=== PATIENT | female | born 1995 | race Caucasian/White ===

== ENCOUNTER 2020-06-16 12:54 | Outpatient (REF) | payer MEDICAID, SELFPAY ==
[2020-06-16 15:18] LABS: MANUAL DIFF FLAG NO
[2020-06-16 15:26] LABS: Basophils Percent Auto 0.3 % (0-2); Eosinophils Absolute Auto 0.2 X10*3/uL (0.0-0.4); Eosinophils Percent Auto 1.7 % (0-4); Hematocrit 42.1 % (37-47); Hemoglobin 14.4 g/dl (12.0-16.0); Imm Gran Abs Auto 0.08 X10*3/uL (0.00-0.03); Imm Gran Pct Auto 0.7 % (0.0-0.4); Lymphocytes Absolute Auto 2.4 X10*3/uL (1.2-4.9); Lymphocytes Percent Auto 21.8 % (20-40); Mean Corpuscular HGB Conc 34.2 g/dl (31.0-35.0); Mean Corpuscular Hemoglobin 30.2 pg (27.0-33.0); Mean Corpuscular Volume 88.3 fL (80-98); Mean Platelet Volume 10.7 fL (9.4-12.3); Monocytes Absolute Auto 0.6 X10*3/uL (0.1-1.2); Monocytes Percent Auto 5.5 % (2-11); Neutrophils Absolute Auto 7.6 X10*3/uL (2.0-8.3); Platelet Count 269 X10*3/uL (160-400); Red Blood Count 4.77 X10*6/uL (4.20-5.50); White Blood Count 10.9 X10*3/uL (4.8-10.8)
[2020-06-16 15:53] LABS: Amphetamine Screen Urine Not Detected (Not Detect); Barbiturates, Urine Not Detected (Not Detect); Benzodiazepines Screen Urine Not Detected (Not Detect); Cannabinoid Screen Urine Not Detected (Not Detect); Cocaine Screen Urine Not Detected (Not Detect); Opiate Screen Urine Not Detected (Not Detect); Phencyclidine Screen Urine Not Detected (Not Detect)
[2020-06-17 17:26] LABS: Rubella IgG Antibody 1.21 index
[2020-06-20 10:32] LABS: HBS Num1 2.43 mIU/mL (0-7.99); HBc Num1 0.04 S/CO (0.00-0.79); HBsAGNum1 0.19 S/CO (0.00-0.99); HIV AB/AG Nonreactive (Nonreactive); HIV Num 1 0.07 S/CO (0.00-0.99); Hepatitis B Core Antibody Nonreactive (Nonreactive); Hepatitis B Surface Antigen Negative (Negative); ~Hepatitis B Surface Antibody NONREACTIVE (Nonreactive)
[2020-06-20 10:37] LABS: ~HepC Num1 0.07 S/CO (0.00-0.79); ~Hepatitis C Antibody Nonreactive (Nonreactive)
[2020-06-22 05:15] LABS: Syphilis Screen Nonreactive (Nonreactive)
== END 2020-06-16 12:55 | disposition home or self-care (01) ==
LOC: HO.LABR 12:54
PROVIDERS: Visit Provider Advanced Practice Midwife
DX: Z34.90 Encounter for supervision of normal pregnancy, unspecified, unspecified trimester (principal)
CPT/HCPCS: 36415; 80307; 85025; 86704; 86706; 86762; 86780; 86787; 86803; 86850; 86886; 86900; 86901; 87086; 87340; 87389

== ENCOUNTER 2020-06-17 10:01 | Outpatient (REF) | payer MEDICAID, SELFPAY ==
[2020-06-17 14:07] LABS: Alanine Aminotransferase 13 U/L (0-31); Aspartate Amino Transferase 11 U/L (5-31)
[2020-06-17 14:18] LABS: Uric Acid 3.7 mg/dL (2.4-5.7)
[2020-06-17 14:38] LABS: Creatinine Urine 105.31 mg/dL; Protein/Creatinine Ratio, Ur 0.09 (<0.2); Total Protein Urine Random 9 mg/dL (<12)
[2020-06-17 16:40] LABS: CT PCR NOT DETECTED (Not Detect.); NG PCR NOT DETECTED (Not Detect.)
[2020-06-18 12:24] LABS: BV Int Neg Control Negative (Negative); BV Int Pos Control Positive (Positive)
== END 2020-06-17 10:02 | disposition home or self-care (01) ==
LOC: HO.LAB 10:01
PROVIDERS: PCP Internal Medicine Geriatric Medicine; Visit Provider Advanced Practice Midwife
DX: O26.892 Other specified pregnancy related conditions, second trimester (principal); R51.9 Headache, unspecified; O99.712 Diseases of the skin and subcutaneous tissue complicating pregnancy, second trimester; L85.3 Xerosis cutis; O99.891 Other specified diseases and conditions complicating pregnancy; N89.8 Other specified noninflammatory disorders of vagina; Z3A.18 18 weeks gestation of pregnancy; Z23 Encounter for immunization
CPT/HCPCS: 84156; 84450; 84460; 84550; 87480; 87491; 87510; 87591; 87660; 88142

== ENCOUNTER 2020-06-24 10:26 | Outpatient (REF) | payer MEDICAID, SELFPAY ==
--- NOTE | 2020-06-24 10:36 | US_ITS ---
EXAMINATION: OBSTETRICAL ULTRASOUND, Follow up HISTORY: 25-year-old at the 19.0 weeks of gestation Size date discrepancy COMPARISON: None TECHNIQUE: Real time transabdominal imaging with color and M-mode Doppler. PRESENTATION: Vertex PLACENTA LOCATION: Posterior without previa AMNIOTIC FLUID: Normal MEASUREMENTS: 1. Biparietal Diameter: 3.2 cm; 16.0 wks 2. Head Circumference: 11.37 cm; 15.6 wks 3. Abdominal Circumference: 9.4 cm; 15.4 wks 4. Femur Length: 1.9 cm; 15.4 wks 5. Heart Rate: 163 beats per minute WEIGHT: EFW: 128 grams (0 lbs 5 oz) -- N/A %. anatomic survey was not attempted due to early gestational age. GESTATIONAL AGE: 1. Established GA: 19.0 wks 2. GA from [facility]: 15.6 wks ESTIMATED DATE OF DELIVERY: 1. Established ADAM: 11/18/2020 2. ADAM from A: 12/10/2020 IMPRESSION: 1. A single active fetus 2. Size less than dates, the biometry is consistent with 15.6 weeks of gestation. Adjust her ADAM to 12/10/2020 based on today's examination. I discussed the discrepancy between her LMP based gestational age and today's biometry. I informed her that her best ADAM is 12/10/2020. An N IPT was offered and accepted. A survey has been scheduled in 3 weeks. Thank you very much for this referral.
== END 2020-06-24 10:27 | disposition home or self-care (01) ==
LOC: HO.US 10:26
PROVIDERS: Visit Provider Advanced Practice Midwife
DX: Z36.3 Encounter for antenatal screening for malformations (principal)
CPT/HCPCS: 76816

== ENCOUNTER 2020-07-29 14:44 | Outpatient (REF) | payer MEDICAID, SELFPAY ==
--- NOTE | 2020-07-29 | US_ITS ---
EXAMINATION: US OBSTETRICAL CLINICAL INFORMATION: 25-year-old at 20.6 weeks of gestation Suspected anomaly COMPARISON: 06/24/2020 TECHNIQUE: Real-time transabdominal ultrasound was performed using C1-5 megahertz transducer. FINDINGS: A single, active, fetus is seen in transverse presentation. The placenta is posterior without previa, and the amniotic fluid volume is wnl. MEASUREMENTS: 1. Biparietal Diameter: 4.96 cm; 21.1 wks 2. Head Circumference: 18.6 cm; 21.0 wks 3. Abdominal Circumference: 15.9 cm; 21.1 wks 4. Femur Length: 3.5 cm; 21.0 wks 5. Humerus Length: 3.22 cm; 20.6 wks 6. Tibia Length: 2.94 cm; 20.6 wks 7. Ulna Length: 3.1 cm; 22.0 wks 8. Lateral ventricle: 0.78 cm 9. Cerebellum: 2.1 cm; 20.6 wks 10. Cisterna Magna: 0.4 cm 11. Nuchal Fold: 3.1 mm 12. Heart Rate: 123 beats per minute Rt ovary: normal Lt ovary: normal Cervical length 4.2 cm on T/A. GESTATIONAL AGE: 1. Established GA: 20.6 wks 2. GA from [facility]: 21.1 wks ESTIMATED DATE OF DELIVERY: 1. Established ADAM: 12/10/2020 2. ADAM from [facility]: 12/08/2020 ANATOMY: The visualized anatomy includes but not limited to: 1. Cranium: Normal 2. Intracranial anatomy: cavum septum pellucidi, lateral ventricles, choroid plexus, cerebellum, posterior fossa, third and fourth ventricles. 3. face: orbits, lip/palate, profile, nasal bone 4. Heart: four-chamber view of the heart, ventricular septum, foramen ovale, pulmonary vein, left outflow tracts Suboptimal: RVOT, three-vessel view, 3 vessel trachea view, ductal and aortic arches 1. Diaphragm: Normal 2. Abdominal wall: Normal 3. Cord Insertion: Normal 4. Spine: Cervical, thoracic, lumbar, sacral. 5. Stomach: Normal size and shape 6. Right Kidney: Normal 7. Left Kidney: Normal 8. 3 vessel cord: Normal 9. Upper extremity: Open hands, fifth digit. 10. Lower extremity: Tibia, fibula, bilateral feet. 11. Bladder: Normal 12. Genitalia: Male, patient aware US/US OB /maternal detail IMPRESSION: 1. Single, living, intrauterine with appropriate biometry. 2. Suboptimal cardiac views due to position. No abnormalities were seen in visualized anatomy. 3. Normal cervix DISCUSSION: I reviewed today's ultrasound findings. We discussed the limitations of ultrasound in diagnosing aneuploidy and other congenital abnormalities. I reviewed the differences between screening test and diagnostic test. Amniocentesis was discussed and declined. She was informed that the baseline incidence of congenital abnormalities is approximately 3-5%. Not all these conditions are diagnosable in utero. RECOMMENDATIONS: 1. Follow-up anatomy in 2 weeks is been scheduled. Thank you for allowing me to participate in her care. Visiting time 25 minutes. Majority of this visit was spent reviewing and discussing her care.
== END 2020-07-29 14:45 | disposition home or self-care (01) ==
LOC: HO.US 14:44
PROVIDERS: PCP Family Medicine; Visit Provider Advanced Practice Midwife
DX: Z36.3 Encounter for antenatal screening for malformations (principal); Z3A.20 20 weeks gestation of pregnancy
CPT/HCPCS: 76811

== ENCOUNTER 2020-08-12 14:32 | Outpatient (REF) | payer MEDICAID, SELFPAY ==
--- NOTE | 2020-08-12 14:42 | US_ITS ---
EXAMINATION: OBSTETRICAL ULTRASOUND, Follow up HISTORY: 25-year-old at the 22.6 weeks of gestation Incomplete survey COMPARISON: 07/29/2020 TECHNIQUE: Real time transabdominal imaging with color and M-mode Doppler. PRESENTATION: Transverse PLACENTA LOCATION: Posterior without previa AMNIOTIC FLUID: Normal MEASUREMENTS: 1. Biparietal Diameter: 5.6 cm; 23.1 wks 2. Head Circumference: 21.3 cm; 23.3 wks 3. Abdominal Circumference: 18.9 cm; 23.5 wks 4. Femur Length: 4.0 cm; 22.6 wks 5. Heart Rate: 163 beats per minute WEIGHT: Estimated weight is 580 grams (1 lbs 4 oz) -- 64 %. Normal views of lateral cerebral ventricle, profile, nose/lips, 4ch view, LVOT, RVOT, three-vessel view, 3 vessel trachea view, aortic and ductal arches. GESTATIONAL AGE: 1. Established GA: 22.6 wks 2. GA from [facility]: 23.2 wks ESTIMATED DATE OF DELIVERY: 1. Established ADAM: 12/10/2020 2. ADAM from [facility]: 12/07/2020 US/US OB follow up IMPRESSION: 1. A single fetus with appropriate interval growth. 2. Previously limited views of the anatomy were seen as listed above. No abnormalities were noted in visualized anatomy. 3. This completes the survey. I reviewed the limitations of ultrasound in diagnosing aneuploidy and other congenital abnormalities. Amniocentesis was again reviewed and she declined. She was informed that the baseline instance of congenital abnormalities and defects in the general population is approximately 3-5%. Not all these conditions are diagnosable in utero. RECOMMENDATIONS: 1. f/u PRN Thank you very much for this referral.
== END 2020-08-12 14:33 | disposition home or self-care (01) ==
LOC: HO.US 14:32
PROVIDERS: Visit Provider Advanced Practice Midwife
DX: Z34.90 Encounter for supervision of normal pregnancy, unspecified, unspecified trimester (principal); Z36.3 Encounter for antenatal screening for malformations; Z3A.22 22 weeks gestation of pregnancy
CPT/HCPCS: 76816

== ENCOUNTER → 2020-09-07 11:12 | Outpatient (BNVA) | payer MEDICAID, SELFPAY | PROVIDERS: PCP Family Medicine; Visit Provider Advanced Practice Midwife | DX: Z76.89 Persons encountering health services in other specified circumstances (principal) ==

== ENCOUNTER → 2020-09-13 | Outpatient (BNVA) | payer MEDICAID, SELFPAY | PROVIDERS: PCP Family Medicine; Visit Provider Advanced Practice Midwife | DX: O21.9 Vomiting of pregnancy, unspecified (principal) | CPT/HCPCS: 81003; 99212 ==

== ENCOUNTER 2020-10-07 15:49 | Outpatient (REF) | payer MEDICAID, SELFPAY | END 2020-10-07 15:50 | disposition home or self-care (01) | LOC: HO.LAB 15:49 | PROVIDERS: Visit Provider Internal Medicine | DX: Z20.822 Contact with and (suspected) exposure to COVID-19 (principal) | CPT/HCPCS: 36415; C9803; U0003 ==

== ENCOUNTER → 2020-10-18 12:33 | Outpatient (BNVA) | payer MEDICAID, SELFPAY | PROVIDERS: Visit Provider Advanced Practice Midwife | DX: Z34.93 Encounter for supervision of normal pregnancy, unspecified, third trimester (principal) | CPT/HCPCS: 99212 ==

== ENCOUNTER 2020-12-01 13:50 | Outpatient (REF) | payer MEDICAID, SELFPAY ==
[2020-12-01 17:02] LABS: MANUAL DIFF FLAG NO
[2020-12-01 17:08] LABS: Basophils Percent Auto 0.2 % (0-2); Eosinophils Percent Auto 0.1 % (0-4); Hematocrit 44.7 % (37-47); Hemoglobin 14.9 g/dl (12.0-16.0); Imm Gran Abs Auto 0.13 X10*3/uL (0.00-0.03); Imm Gran Pct Auto 0.7 % (0.0-0.4); Lymphocytes Absolute Auto 1.7 X10*3/uL (1.2-4.9); Mean Corpuscular HGB Conc 33.3 g/dl (31.0-35.0); Mean Corpuscular Hemoglobin 29.6 pg (27.0-33.0); Mean Corpuscular Volume 88.9 fL (80-98); Mean Platelet Volume 12.6 fL (9.4-12.3); Monocytes Absolute Auto 0.5 X10*3/uL (0.1-1.2); Monocytes Percent Auto 2.8 % (2-11); Neutrophils Absolute Auto 16.8 X10*3/uL (2.0-8.3); Neutrophils Percent Auto 87.2 % (45-73); Platelet Count 241 X10*3/uL (160-400); Red Blood Count 5.03 X10*6/uL (4.20-5.50); Red Cell Distribution Width 14.8 % (11.0-16.0); White Blood Count 19.2 X10*3/uL (4.8-10.8)
[2020-12-01 17:19] LABS: Glucose 1 Hour 136 mg/dL
[2020-12-01 17:45] LABS: Thyroid Stimulating Hormone 1.39 uIU/mL (0.32-4.0)
[2020-12-02 04:38] LABS: Syphilis Screen Nonreactive (Nonreactive)
[2020-12-02 09:21] LABS: CT PCR NOT DETECTED (Not Detect.); NG PCR NOT DETECTED (Not Detect.)
== END 2020-12-01 13:51 | disposition home or self-care (01) ==
LOC: HO.LAB 13:50
PROVIDERS: Obstetrics & Gynecology; Visit Provider Advanced Practice Midwife
DX: O26.893 Other specified pregnancy related conditions, third trimester (principal); R10.9 Unspecified abdominal pain; Z3A.38 38 weeks gestation of pregnancy
CPT/HCPCS: 36415; 81003; 82951; 84443; 85025; 86780; 86850; 86900; 86901; 87081; 87147; 87491; 87591; 99212

== ENCOUNTER → 2021-03-20 14:47 | Outpatient (BNVA) | payer MEDICAID, SELFPAY | PROVIDERS: Visit Provider Advanced Practice Midwife ==

== ENCOUNTER 2021-10-16 09:04 | Outpatient (REF) | payer MEDICAID, SELFPAY ==
[2021-10-16 16:33] LABS: CT PCR NOT DETECTED (Not Detect.); NG PCR NOT DETECTED (Not Detect.)
== END 2021-10-16 09:05 | disposition home or self-care (01) ==
LOC: HO.LAB 09:04
PROVIDERS: Visit Provider Obstetrics & Gynecology
DX: Z30.09 Encounter for other general counseling and advice on contraception (principal)
CPT/HCPCS: 87491; 87591; 99212

== ENCOUNTER → 2021-11-27 12:50 | Outpatient (BNVA) | payer MEDICAID, SELFPAY | PROVIDERS: Visit Provider Advanced Practice Midwife | DX: Z30.430 Encounter for insertion of intrauterine contraceptive device (principal); Z30.09 Encounter for other general counseling and advice on contraception | CPT/HCPCS: 58300; 81025; 99212 ==

== ENCOUNTER 2022-02-14 05:42 | Emergency (ER) | payer MEDICAID, SELFPAY ==
--- NOTE | ~2022-02-14 | CT_ITS ---
EXAMINATION: CT ABDOMEN AND PELVIS WITHOUT CONTRAST CLINICAL INFORMATION: Right-sided flank pain COMPARISON: None TECHNIQUE: Multidetector volumetric imaging was performed from the superior aspect of the liver through the pubic symphysis. Sagittal and coronal reformatted images were obtained on the technologist's workstation. This CT examination was performed using dose optimization techniques as appropriate, variously including the following: *Automated exposure control *Adjustment of mA and/or kV according to patient size (this includes techniques or standardized protocols for targeted exams where dose is matched to indication/reason for exam; i.e. extremities or head) *Use of iterative reconstruction technique DLP: 669 mGy-cm FINDINGS: Visualized lung bases demonstrate mild dependent atelectasis. The liver demonstrates normal size, contour and attenuation. 2 mm calcification of the right hepatic lobe. The gallbladder is normal in appearance. The pancreas, spleen and adrenal glands are unremarkable. Symmetrically sized kidneys. There are several scattered bilateral 1 to 2 mm nonobstructing calculi within each kidney. There is no hydronephrosis of either kidney. There is a trace amount of mesenteric stranding abutting the lateral aspect of the right kidney and the inferior right hepatic lobe, a nonspecific finding. Normal caliber loops of small and large bowel. Mild colonic stool burden. Normal appendix. Small fat-containing umbilical hernia. Normal caliber abdominal aorta. The bladder is normal in appearance. Unremarkable CT appearance of the uterus. IUD in expected orientation. No gross free pelvic fluid. 3.5 cm left adnexal cystic lesion. No inguinal lymphadenopathy. No acute osseous abnormality. CT/CT abdomen pelvis wo con IMPRESSION: -Several tiny 1 to 2 mm renal calculi bilaterally. Medullary nephrocalcinosis suspected. There is no hydronephrosis of either kidney. -There is a trace amount of mesenteric stranding abutting the lateral aspect of the right kidney and the inferior right hepatic lobe. This is a nonspecific finding. Given history of right-sided flank pain, it is possible the patient recently passed a right-sided renal stone. Clinical correlation recommended. Follow-up imaging can be obtained as clinically indicated. Fleischner guidelines were followed.
[2022-02-14 06:48] LABS: Appearance Urine HAZY; Color Urine DARK YELLOW; Glucose Urine UA NEG (NEG); Leukocyte Esterase Urine 1+ (NEG); Nitrite Urine NEG (NEG); PH 6.5 (5.0-8.0); UPreg QC Valid YES; Urine Blood 3+ (NEG); Urine Ketones NEG (NEG); Urine Pregnancy NEGATIVE (NEGATIVE); Urine Protein TRACE MG/DL (NEG-TRACE)
[2022-02-14 06:49] LABS: Bacteria Urine 1+ /LPF; Mucus Urine 3+ /LPF; Squamous Epithelial Cell Urine 2+ /LPF
[2022-02-14 07:08] VITALS: BP 112/55; PULSE 114; RESP 18; TEMP 36.8; O2SAT 98; BMI 31.4
--- NOTE | 2022-02-14 07:14 | ED.ABDPAIN ---
HPI - Abdominal Pain General Chief Complaint: Abdominal Pain Time Seen by Provider: 02/14/22 06:42 Source: patient, family and nursing scheduler History of Present Illness HPI narrative: Thai-speaking patient with history obtained with nursing scheduler. Patient complains of right upper abdominal and right flank pain which started last night at about 22:00. Positive nausea vomiting and diarrhea. No prior history of similar issues. She states her urine is dark yellow but no other urinary symptoms. No history of kidney stones. No history of gallstones. She states the rest of her family is sick as well with vomiting and diarrhea. No alleviating or exacerbating factors Related Data Previous Rx's Medication Instructions Recorded ondansetron 4 mg disintegrating 4 mg PO Q8H PRN nausea and 02/14/22 tablet vomiting #10 tabs oxycodone-acetaminophen 5 mg-325 1 tab PO Q6H PRN pain #6 tabs 02/14/22 mg tablet (Percocet) sulfamethoxazole 800 1 tab PO BID #14 tabs 02/14/22 mg-trimethoprim 160 mg tablet (Bactrim DS) Allergies Allergy/AdvReac Type Severity Reaction Status Date / Time No Known Allergies Allergy Verified 11/27/21 16:14 [No Known Allergies*] Review of Systems Comments: subjective fevers Comments: no sore throat Comments: no chest pain Comments: no cough or shortness of breath Comments: as described above Comments: as described above Comments: right flank pain Comments: no rash Comments: no weakness PMFSH Past Medical History Surgical History No history of previous surgery Family History Family History Mother No problems noted. Father History of heart attack Paternal Grandmother Hx of diabetes mellitus Maternal Grandmother No problems noted. Maternal Grandfather No problems noted. Social History Social History Household Members: Children Alcohol intake: never Substance Use Type: Marijuana Advance Directives: No Advance Directives Information Provided: No Current occupational exposures/hazards: No Gender identity: Female Physical Exam ED Vital Signs: Vital Signs - 24 hr 02/14/22 07:08 02/14/22 07:46 Temperature 98.3 F Pulse Rate 114 H 0 L Respiratory Rate 18 0 L Blood Pressure 112/55 L 0/0 L Pulse Oximetry 98 0 L Oxygen Delivery Method Room Air Room Air BMI result Body Mass Index 31.4 Const Other: awake alert no acute distress Resp Other: clear and equal bilaterally without wheezes rales or rhonchi Cardio Other: regular rate and rhythm without murmurs rubs or gallops GI Other: soft. Tender mildly right upper quadrant without guarding or rebound. Positive right flank tenderness to percussion. Normoactive bowel sounds. Nondistended Skin Other: warm pink and dry without rash Neuro Other: awake alert oriented Course Course Course Narrative: abdominal pain with nausea vomiting diarrhea Gastroenteritis Viral syndrome COVID-19 Kidney stone Gallstone dehydration IV fluids IV Zofran IV Toradol CT scan HCG negative CT scan shows some mild perinephric stranding without evidence of hydronephrosis or obstruction or passing kidney stone. Urinalysis shows some white cells. Her white count is elevated. Given all of these findings, will treat with a course of antibiotics. Final diagnosis pyelonephritis, mild MDM - Abdominal Pain Lab Data Result diagrams: 02/14/22 07:29 02/14/22 07:29 Labs: Lab Results 02/14/22 02/14/22 02/14/22 Range/Units 05:55 05:55 07:29 WBC 17.3 H (4.8-10.8) X10*3/uL RBC 4.77 (4.20-5.50) X10*6/uL Hgb 14.1 (12.0-16.0) g/dl Hct 42.3 (37.0-47.0) % MCV 88.7 (80.0-98.0) fL MCH 29.6 (27.0-33.0) pg MCHC 33.3 (31.0-35.0) g/dl RDW 12.9 (11.0-16.0) % Plt Count 237 (160-400) X10*3/uL MPV 10.5 (9.4-12.3) fL Immature Gran % (Auto) 0.6 H (0.0-0.4) % Neut % (Auto) 83.0 H (45-73) % Lymph % (Auto) 8.0 L (20-40) % [place] % (Auto) 8.1 (2-11) % Eos % (Auto) 0.1 (0-4) % Baso % (Auto) 0.2 (0-2) % Lymph # (Auto) 1.4 (1.2-4.9) X10*3/uL [place] # (Auto) 1.4 H (0.1-1.2) X10*3/uL Eos # (Auto) 0.0 (0.0-0.4) X10*3/uL Baso # (Auto) 0.0 (0.0-0.2) X10*3/uL Abs Immat Gran (auto) 0.11 H (0.00-0.03) X10*3/uL Absolute Neuts (auto) 14.4 H (2.0-8.3) x10*3/uL Absolute Nucleated RBC 0.000 (0.0-0.012) X10*3/uL Nucleated RBC % (auto) 0.0 (0.0-0.2) /100WBC Sodium (135-145) mmol/L Potassium (3.3-5.1) mmol/L Chloride (96-108) mmol/L Carbon Dioxide (22-29) mmol/L Anion Gap (12-20) BUN (9-16) mg/dL Creatinine (0.5-1.4) mg/dL Estim Creat Clear Calc Estimated GFR Random Glucose (60-115) mg/dL Calcium (8.4-10.2) mg/dL Total Bilirubin (0.0-1.0) mg/dL AST (5-31) U/L ALT (0-31) U/L Alkaline Phosphatase (39-117) U/L Total Protein (6.5-8.0) g/dL Albumin (3.5-5.0) g/dL Lipase (8-78) U/L Urine Color DARK YELLOW Urine Appearance HAZY Urine pH 6.5 (5.0-8.0) Ur Specific [place] 1.020 (1.005-1.025) Urine Protein TRACE (NEG-TRACE) MG/DL Urine Glucose (UA) NEG (NEG) MG/DL Urine Ketones NEG (NEG) MG/DL Urine Blood 3+ H (NEG) Urine Nitrite NEG (NEG) Ur Leukocyte Esterase 1+ H (NEG) Urine RBC 10-14 H (0) /HPF Urine WBC 5-9 H (0-4) /HPF Ur Squamous Epith Cells 2+ /LPF Urine Bacteria 1+ /LPF Urine Mucus 3+ /LPF Urine Test NEGATIVE (NEGATIVE) 02/14/22 Range/Units 07:29 WBC (4.8-10.8) X10*3/uL RBC (4.20-5.50) X10*6/uL Hgb (12.0-16.0) g/dl Hct (37.0-47.0) % MCV (80.0-98.0) fL MCH (27.0-33.0) pg MCHC (31.0-35.0) g/dl RDW (11.0-16.0) % Plt Count (160-400) X10*3/uL MPV (9.4-12.3) fL Immature Gran % (Auto) (0.0-0.4) % Neut % (Auto) (45-73) % Lymph % (Auto) (20-40) % [place] % (Auto) (2-11) % Eos % (Auto) (0-4) % Baso % (Auto) (0-2) % Lymph # (Auto) (1.2-4.9) X10*3/uL [place] # (Auto) (0.1-1.2) X10*3/uL Eos # (Auto) (0.0-0.4) X10*3/uL Baso # (Auto) (0.0-0.2) X10*3/uL Abs Immat Gran (auto) (0.00-0.03) X10*3/uL Absolute Neuts (auto) (2.0-8.3) x10*3/uL Absolute Nucleated RBC (0.0-0.012) X10*3/uL Nucleated RBC % (auto) (0.0-0.2) /100WBC Sodium 136 (135-145) mmol/L Potassium 4.0 (3.3-5.1) mmol/L Chloride 103 (96-108) mmol/L Carbon Dioxide 25 (22-29) mmol/L Anion Gap 12 (12-20) BUN 6 L (9-16) mg/dL Creatinine 0.65 (0.5-1.4) mg/dL Estim Creat Clear Calc 144.2 Estimated GFR > 60 Random Glucose 114 (60-115) mg/dL Calcium 9.2 (8.4-10.2) mg/dL Total Bilirubin 1.0 (0.0-1.0) mg/dL AST 22 D (5-31) U/L ALT 26 (0-31) U/L Alkaline Phosphatase 62 (39-117) U/L Total Protein 7.0 (6.5-8.0) g/dL Albumin 4.4 (3.5-5.0) g/dL Lipase 15 (8-78) U/L Urine Color Urine Appearance Urine pH (5.0-8.0) Ur Specific [place] (1.005-1.025) Urine Protein (NEG-TRACE) MG/DL Urine Glucose (UA) (NEG) MG/DL Urine Ketones (NEG) MG/DL Urine Blood (NEG) Urine Nitrite (NEG) Ur Leukocyte Esterase (NEG) Urine RBC (0) /HPF Urine WBC (0-4) /HPF Ur Squamous Epith Cells /LPF Urine Bacteria /LPF Urine Mucus /LPF Urine Test (NEGATIVE) Discharge Plan Discharge Clinical Impression: Pyelonephritis Patient Disposition: Home, Self-Care Instructions: Kidney Infection (ED) Prescriptions: New sulfamethoxazole-trimethoprim [Bactrim DS] 800-160 mg tablet 1 tab PO BID Qty: 14 0RF ondansetron 4 mg tablet,disintegrating 4 mg PO Q8H PRN (Reason: nausea and vomiting) Qty: 10 0RF oxycodone-acetaminophen [Percocet] 5-325 mg tablet 1 tab PO Q6H PRN (Reason: pain) Qty: 6 0RF Rx Instructions: Partial Fill upon patient request. Stand Alone Forms: Work/School Release
[2022-02-14] MEDS: 0.9 % Sodium Chloride 1,000 ML 999 ML IV (07:30)
[2022-02-14 07:35] LABS: MANUAL DIFF FLAG NO
[2022-02-14] MEDS: Ketorolac Tromethamine 15 MG/ML VIAL 30 MG IVPUSH (07:37)
[2022-02-14] MEDS: ondansetron HCL 4 MG/2 ML VIAL IVPUSH (07:37)
[2022-02-14 07:38] LABS: Basophils Percent Auto 0.2 % (0-2); Eosinophils Percent Auto 0.1 % (0-4); Hematocrit 42.3 % (37.0-47.0); Hemoglobin 14.1 g/dl (12.0-16.0); Imm Gran Abs Auto 0.11 X10*3/uL (0.00-0.03); Imm Gran Pct Auto 0.6 % (0.0-0.4); Lymphocytes Absolute Auto 1.4 X10*3/uL (1.2-4.9); Mean Corpuscular HGB Conc 33.3 g/dl (31.0-35.0); Mean Corpuscular Hemoglobin 29.6 pg (27.0-33.0); Mean Corpuscular Volume 88.7 fL (80.0-98.0); Mean Platelet Volume 10.5 fL (9.4-12.3); Monocytes Absolute Auto 1.4 X10*3/uL (0.1-1.2); Monocytes Percent Auto 8.1 % (2-11); Neutrophils Absolute Auto 14.4 x10*3/uL (2.0-8.3); Platelet Count 237 X10*3/uL (160-400); Red Blood Count 4.77 X10*6/uL (4.20-5.50); Red Cell Distribution Width 12.9 % (11.0-16.0); White Blood Count 17.3 X10*3/uL (4.8-10.8)
[2022-02-14 07:46] VITALS: BP 0/0; PULSE 0; RESP 0; O2SAT 0
[2022-02-14 08:06] LABS: Alanine Aminotransferase 26 U/L (0-31); Albumin Level 4.4 g/dL (3.5-5.0); Alkaline Phosphatase 62 U/L (39-117); Anion Gap 12 (12-20); Aspartate Amino Transferase 22 U/L (5-31); Blood Urea Nitrogen 6 mg/dL (9-16); Calcium 9.2 mg/dL (8.4-10.2); Carbon Dioxide 25 mmol/L (22-29); Chloride 103 mmol/L (96-108); Creatinine Clr Calc Pharmacy 144.2; Estimated Glomerular Filt Rate > 60; Glucose Random 114 mg/dL (60-115); Lipase 15 U/L (8-78); Sodium 136 mmol/L (135-145)
[2022-02-14 09:44] LABS: Influenza A PCR NEGATIVE (Negative); Influenza B PCR NEGATIVE (Negative); Resp Syncy Virus RNA Qual PCR NEGATIVE (Negative); SARS COV2 PCR INHOUSE NEGATIVE (Negative)
== END 2022-02-14 09:26 | disposition home or self-care (01) ==
PROVIDERS: Emergency Provider Emergency Medicine
DX: N20.9 Urinary calculus, unspecified (principal); Z20.822 Contact with and (suspected) exposure to COVID-19; R10.11 Right upper quadrant pain; R11.2 Nausea with vomiting, unspecified
CPT/HCPCS: 0241U; 36415; 74176; 80053; 81001; 81025; 83690; 85025; 96361; 96374; 96375; 99283; 99284; J1885; J2405

== ENCOUNTER → 2022-12-20 13:42 | Outpatient (BNVA) | payer MEDICAID, SELFPAY | PROVIDERS: Visit Provider Advanced Practice Midwife | DX: Z97.5 Presence of (intrauterine) contraceptive device (principal) | CPT/HCPCS: 99212 ==

== ENCOUNTER 2023-02-27 16:25 | Emergency (ER) | payer MEDICAID, SELFPAY ==
[2023-02-27 16:39] VITALS: BP 119/70; PULSE 104; RESP 18; TEMP 36.6; O2SAT 97; BMI 33.8
--- NOTE | 2023-02-27 16:39 | ED_ITS ---
HPI - Abdominal Pain General Chief Complaint: General Medical Stated Complaint: abd pain, vomiting, nausea Time Seen by Provider: 02/27/23 19:49 Source: patient Mode of arrival: ambulatory Limitations: no limitations and language barrier History of Present Illness HPI narrative: 28 yo female with history of IUD placed 2 years presenting to the ER with upper abdominal pain. She states that she has been experiencing intermittent upper abdominal pain since this morning. She reports N/V, diarrhea, and vaginal bleed ing without blood clots. She states that her LMP was the 02/22-02/25, and noticed spotting when she wiped this morning with some vaginal discharge. She denies pelvic pain. She reports alcohol use this weekend for a social gathering. MD elicited complaint: abdominal pain Pertinent past history: none Onset (ago): hour(s) Pain Consistency: intermittent Location: epigastric, LUQ and RUQ Severity: moderate Quality: stabbing and sharp Radiation: none Migration to: no migration Exacerbating factors: eating Relieving factors: nothing Associated symptoms: nausea, vomiting and diarrhea Related Data Date of Last Menstrual Period: 02/22/23 Patient : No Home Medications Medication Instructions Recorded Confirmed levonorgestrel 21 mcg/24 hours (8 intrauterine 12/20/22 12/20/22 yrs) 52 mg intrauterine device (Mirena) Previous Rx's Medication Instructions Recorded ondansetron 4 mg disintegrating 4 mg PO Q8H PRN nausea and 02/27/23 tablet vomiting #7 tabs pantoprazole 40 mg tablet,delayed 40 mg PO DAILY #14 tabs 02/27/23 release (Protonix) Allergies Allergy/AdvReac Type Severity Reaction Status Date / Time No Known Allergies Allergy Verified 02/27/23 16:44 [No Known Allergies*] Review of Systems Review of Systems Yes all other systems are reviewed and are negative [facility] Past Medical History Surgical History No history of previous surgery Date of Last Menstrual Period: 02/22/23 Family History Family History Mother No problems noted. Father History of heart attack Paternal Grandmother Hx of diabetes mellitus Maternal Grandmother No problems noted. Maternal Grandfather No problems noted. Social History Social History (Reviewed 12/20/22 @ 13:51 by eMly Dyer [facility]) Household Members: Children Alcohol intake: unknown Use of substances other than those prescribed or required for medical reasons: Unknown Substance Use Type: Marijuana Advance Directives: No Advance Directives Information Provided: No Patient : No Current occupational exposures/hazards: No Gender identity: Female Physical Exam ED Vital Signs: Vital Signs - 24 hr 02/27/23 16:39 02/27/23 20:11 Temperature 97.8 F Pulse Rate 104 H 85 Respiratory Rate 18 16 Blood Pressure 119/70 120/81 Pulse Oximetry 97 98 Oxygen Delivery Method Room Air Room Air BMI result Body Mass Index 33.8 Appearance: Alert. Oriented X3. No acute distress. Head: normocephalic, atraumatic. Eyes: Pupils equal, round and reactive to light. ENT: Pharynx normal. No tonsillar swelling or exudate. Neck: Normal inspection. Neck supple. CVS: Normal heart rate and rhythm. Pulses normal. Respiratory: No respiratory distress. Breath sounds normal. Abdomen: Soft and tender to palpation in the RUQ, eipigastic area, and LUQ.+BS x4 negative Wetzel sign. Nontender in the LLQ and RLQ. Non distended. pelvic deferred Skin: Skin warm and dry. Normal skin color. Normal skin turgor. No rashes. Extremities: No lower extremity edema. No joint swelling. Neuro/psych: Oriented X 3. No motor deficit. No sensory deficit. CN II-XII intact. Normal speech and cognition. Course Course Course Narrative: RME: 28yo F w/PMHx currently has IUD c/o intermittent upper abdominal pain, vaginal bleeding w/ clots and emesis x this AM Labs, UA ordered Full HPI, ROS and PE to be performed by primary ED provider. Medical Decision Making Medical Decision Making MDM Narrative: 28 yo female with history of IUD placed 2 years presenting to the ER with upper abdominal pain. Physical exam she was tender to palpation in the RUQ, LUQ and epigastric area. Negative Wetzel's sign. Normal lipase and LFTs, negative Upreg. Diagnosis most likely gastritis vs gastroenteritis given diarrhea, trailed Lidoc arine, Ondanetron, and in which she reports improvement of her epigastric pain. Reports dizziness after medication administration and ongoing headache. tylenol given and she was tolerating PO. comfortable with discharge home with PPI, PRN zofran and dietary modifications. staff therapist used to discuss results and plan. stable for d/c home. Differential Diagnosis Differential Diagnoses: The differential diagnosis associated with the presentation includes gastroenteritis, gastritis, acute pancreatitis, acute cholecystitis, IUD displacement, ectopic pregancy, DUB Lab Data MDM Lab Attestation statement: I reviewed the patient's lab results. Labs showed mild leukocytosis with left shift which is at baseline from previous labs. likely reactive due to vomiting. All other labs within normal. 02/27/23 17:12 02/27/23 17:11 Labs: Lab Results 02/27/23 02/27/23 02/27/23 Range/Units 17:11 17:11 17:12 WBC 14.9 H (4.8-10.8) X10*3/uL RBC 4.95 (4.20-5.50) X10*6/uL Hgb 14.5 (12.0-16.0) g/dl Hct 43.0 (37.0-47.0) % MCV 86.9 (80.0-98.0) fL MCH 29.3 (27.0-33.0) pg MCHC 33.7 (31.0-35.0) g/dl RDW 13.0 (11.0-16.0) % Plt Count 305 D (160-400) X10*3/uL MPV 10.5 (9.4-12.3) fL Immature Gran % (Auto) 0.4 (0.0-0.4) % Neut % (Auto) 88.2 H (45-73) % Lymph % (Auto) 7.2 L (20-40) % Douglas % (Auto) 3.4 (2-11) % Eos % (Auto) 0.5 (0-4) % Baso % (Auto) 0.3 (0-2) % Lymph # (Auto) 1.1 L (1.2-4.9) X10*3/uL Douglas # (Auto) 0.5 (0.1-1.2) X10*3/uL Eos # (Auto) 0.1 (0.0-0.4) X10*3/uL Baso # (Auto) 0.0 (0.0-0.2) X10*3/uL Abs Immat Gran (auto) 0.06 H (0.00-0.03) X10*3/uL Absolute Neuts (auto) 13.1 H (2.0-8.3) x10*3/uL Absolute Nucleated RBC 0.000 (0.0-0.012) X10*3/uL Nucleated RBC % (auto) 0.0 (0.0-0.2) /100WBC PT (10.0-13.1) SEC INR (0.9-1.1) Sodium 137 (135-145) mmol/L Potassium 3.7 (3.3-5.1) mmol/L Chloride 107 (96-108) mmol/L Carbon Dioxide 24 (22-29) mmol/L Anion Gap 10 L (12-20) BUN 8 L (9-16) mg/dL Creatinine 0.62 (0.5-1.4) mg/dL Estim Creat Clear Calc 154.1 Estimated GFR > 60 Random Glucose 103 (60-115) mg/dL Calcium 10.3 H D (8.4-10.2) mg/dL Total Bilirubin 0.9 (0.0-1.0) mg/dL Direct Bilirubin 0.3 (0.0-0.5) mg/dL AST 15 (5-31) U/L ALT 13 (0-31) U/L Alkaline Phosphatase 59 (39-117) U/L Total Protein 7.6 (6.5-8.0) g/dL Albumin 4.5 (3.5-5.0) g/dL Lipase 15 (8-78) U/L Beta HCG, Quant mIU/mL Urine Color Yellow Urine Appearance Clear Urine pH 7.0 (5.0-9.0) Ur Specific [place] 1.025 (1.005-1.025) Urine Protein Negative (Neg-Trace) mg/dL Urine Glucose (UA) Negative (Negative) mg/dL Urine Ketones Negative (Negative) mg/dL Urine Blood Trace H (Negative) Urine Nitrite Negative (Negative) Ur Leukocyte Esterase Trace H (Negative) Urine RBC 0-2 (0-2) /HPF Urine WBC 0-5 (0-5) /HPF Ur Squamous Epith Cells 3-5 (0-2) /HPF Urine Bacteria Trace (None Seen) Hyaline Casts 0-2 (0-2) /LPF 06/21/23 06/21/23 Range/Units 17:12 17:12 WBC (4.8-10.8) X10*3/uL RBC (4.20-5.50) X10*6/uL Hgb (12.0-16.0) g/dl Hct (37.0-47.0) % MCV (80.0-98.0) fL MCH (27.0-33.0) pg MCHC (31.0-35.0) g/dl RDW (11.0-16.0) % Plt Count (160-400) X10*3/uL MPV (9.4-12.3) fL Immature Gran % (Auto) (0.0-0.4) % Neut % (Auto) (45-73) % Lymph % (Auto) (20-40) % Douglas % (Auto) (2-11) % Eos % (Auto) (0-4) % Baso % (Auto) (0-2) % Lymph # (Auto) (1.2-4.9) X10*3/uL Douglas # (Auto) (0.1-1.2) X10*3/uL Eos # (Auto) (0.0-0.4) X10*3/uL Baso # (Auto) (0.0-0.2) X10*3/uL Abs Immat Gran (auto) (0.00-0.03) X10*3/uL Absolute Neuts (auto) (2.0-8.3) x10*3/uL Absolute Nucleated RBC (0.0-0.012) X10*3/uL Nucleated RBC % (auto) (0.0-0.2) /100WBC PT 11.4 (10.0-13.1) SEC INR 1.0 (0.9-1.1) Sodium (135-145) mmol/L Potassium (3.3-5.1) mmol/L Chloride (96-108) mmol/L Carbon Dioxide (22-29) mmol/L Anion Gap (12-20) BUN (9-16) mg/dL Creatinine (0.5-1.4) mg/dL Estim Creat Clear Calc Estimated GFR Random Glucose (60-115) mg/dL Calcium (8.4-10.2) mg/dL Total Bilirubin (0.0-1.0) mg/dL Direct Bilirubin (0.0-0.5) mg/dL AST (5-31) U/L ALT (0-31) U/L Alkaline Phosphatase (39-117) U/L Total Protein (6.5-8.0) g/dL Albumin (3.5-5.0) g/dL Lipase (8-78) U/L Beta HCG, Quant < 2 mIU/mL Urine Color Urine Appearance Urine pH (5.0-9.0) Ur Specific [place] (1.005-1.025) Urine Protein (Neg-Trace) mg/dL Urine Glucose (UA) (Negative) mg/dL Urine Ketones (Negative) mg/dL Urine Blood (Negative) Urine Nitrite (Negative) Ur Leukocyte Esterase (Negative) Urine RBC (0-2) /HPF Urine WBC (0-5) /HPF Ur Squamous Epith Cells (0-2) /HPF Urine Bacteria (None Seen) Hyaline Casts (0-2) /LPF Independent Historian Clinical information obtained from an independent historian. History obtained from or confirmed by: Parent External Record Review External record reviewed: Office record Tests considered The following testing was considered but not selected: CT scan vs RUQ U/S considered Prescription Management I considered prescription management with: Pain Medication and Other (antiemetics, PPI) Core Measures AMI core measures followed: No Medications Administered Discontinued Medications Generic Name Dose Route Start Last Admin Trade Name Devanteq PRN Reason Stop Dose Admin Acetaminophen 975 mg 02/27/23 21:35 02/27/23 21:44 Acetaminophen 325 Mg Tablet PO 02/27/23 21:36 975 mg ONCE ONE Administration Al Hydroxide/Mg Hydroxide 30 ml 02/27/23 20:04 02/27/23 20:16 Magnesium Hydrox/Alum Hydrox 30 Ml Oral.Susp PO 02/27/23 20:05 30 ml ONCE ONE Administration Belladonna Alkaloids/Phenobarbital 10 ml 02/27/23 20:04 02/27/23 20:17 Phenobarb/Hyoscy/Atropine/Scop 10 Ml Elixir PO 02/27/23 20:05 10 ml ONCE ONE Administration Lidocaine HCl 15 ml 02/27/23 20:04 02/27/23 20:16 Lidocaine Hcl Viscous 2 % 15 Ml Solution MUCOUS MEM 02/27/23 20:05 15 ml ONCE ONE Administration Ondansetron HCl 4 mg 02/27/23 20:04 02/27/23 20:15 Ondansetron Odt 4 Mg Tab.Juan BAIU 02/27/23 20:05 4 mg ONCE ONE Administration Critical Care Time Critical Care Time Critical Care Time: No Discharge Plan Discharge Clinical Impression: Gastroenteritis, Abnormal vaginal bleeding Patient Disposition: Home, Self-Care Instructions: Gastroenteritis (DC) Additional Instructions: You lab workup today was unremarkable. Your urine test was negative for infection and . You most likely have a viral GI bug also known as gastroenteritis. Treatment is supportive care, symptoms usually resolve on their own in 48-72 hours. Recommend rest and plenty of oral hydration. Stick to a bland diet like soup and toast while you are not feeling well. Take the prescribed medication as needed for nausea and the other medication to help dec Recommend over the counter Pepto Bismol or Imodium for upset stomach and diarrhea. Follow up with your doctor as needed. Follow up with your DELIVERY AGENT for evaluation of your abnormal vaginal bleeding. If you develop new or worsening symptoms call 911 or come back to the ER for further evaluation. Tu an?lisis de laboratorio de hoy no tuvo nada especial. Luo an?lisis de orina yuniel negativo para infecci?n y embarazo. Lo m?s probable es que tenga un bicho GI viral, tambi?n conocido enrique gastroenteritis. El tratamiento es atenci?n de apoyo, los s?ntomas generalmente se resuelven por s? solos en 48 a 72 horas. Recomendable reposo y mariano hidrataci?n oral. Siga wong dieta blanda enrique sopa y tostadas mientras no se sienta chris. [place] el medicamento recetado seg?n sea necesario para las n?useas y el otro medicamento para ayudar a disminuir Recomiende Pepto Bismol o Imodium de venta derick para el malestar estomacal y la diarrea. Giovani un seguimiento con luo m?dico seg?n sea necesario. Giovani un seguimiento con luo obstetra/ginec?logo para evaluar luo sangrado vaginal anormal. Si desarrolla s?ntomas nuevos o que empeoran, llame al 911 o regrese a la mayda de emergencias para wong evaluaci?n adicional. Prescriptions: New pantoprazole [Protonix] 40 mg tablet,delayed release (DR/EC) 40 mg PO DAILY Qty: 14 0RF ondansetron 4 mg tablet,disintegrating 4 mg PO Q8H PRN (Reason: nausea and vomiting) Qty: 7 0RF No Action Mirena 21 mcg/24 hours (8 yrs) 52 mg intrauterine device intrauterine Referrals: [facility] [place] [facility] [Primary Care Provider] - Interventions: ED Discharge Assessment Last Done: 02/27/23 22:25 Discharge Date/Time: 02/27/23 22:25 Print Language: Stateless
[2023-02-27 17:19] LABS: Basophils Percent Auto 0.3 % (0-2); Eosinophils Absolute Auto 0.1 X10*3/uL (0.0-0.4); Eosinophils Percent Auto 0.5 % (0-4); Hemoglobin 14.5 g/dl (12.0-16.0); Imm Gran Abs Auto 0.06 X10*3/uL (0.00-0.03); Imm Gran Pct Auto 0.4 % (0.0-0.4); Lymphocytes Absolute Auto 1.1 X10*3/uL (1.2-4.9); Lymphocytes Percent Auto 7.2 % (20-40); MANUAL DIFF FLAG NO; Mean Corpuscular HGB Conc 33.7 g/dl (31.0-35.0); Mean Corpuscular Hemoglobin 29.3 pg (27.0-33.0); Mean Corpuscular Volume 86.9 fL (80.0-98.0); Mean Platelet Volume 10.5 fL (9.4-12.3); Monocytes Absolute Auto 0.5 X10*3/uL (0.1-1.2); Monocytes Percent Auto 3.4 % (2-11); Neutrophils Absolute Auto 13.1 x10*3/uL (2.0-8.3); Neutrophils Percent Auto 88.2 % (45-73); Platelet Count 305 X10*3/uL (160-400); Red Blood Count 4.95 X10*6/uL (4.20-5.50); White Blood Count 14.9 X10*3/uL (4.8-10.8)
[2023-02-27 17:21] LABS: Appearance Urine Clear; Color Urine Yellow; Glucose Urine UA Negative (Negative); Leukocyte Esterase Urine Trace (Negative); Nitrite Urine Negative (Negative); Specific Gravity - Urine 1.025 (1.005-1.025); UMIC TRIGGER UACC YES; Urine Blood Trace (Negative); Urine Ketones Negative (Negative); Urine Protein Negative (Neg-Trace)
[2023-02-27 17:25] LABS: Prothrombin Time 11.4 SEC (10.0-13.1)
[2023-02-27 17:25] LABS: Bacteria Urine Trace (None Seen); Hyaline Casts Urine 0-2 /LPF (0-2); RBC Urine 0-2 /HPF (0-2); WBC Urine 0-5 /HPF (0-5)
[2023-02-27 17:34] LABS: Alanine Aminotransferase 13 U/L (0-31); Albumin Level 4.5 g/dL (3.5-5.0); Alkaline Phosphatase 59 U/L (39-117); Anion Gap 10 (12-20); Aspartate Amino Transferase 15 U/L (5-31); Bilirubin Direct 0.3 mg/dL (0.0-0.5); Bilirubin Total 0.9 mg/dL (0.0-1.0); Blood Urea Nitrogen 8 mg/dL (9-16); Calcium 10.3 mg/dL (8.4-10.2); Carbon Dioxide 24 mmol/L (22-29); Chloride 107 mmol/L (96-108); Creatinine Clr Calc Pharmacy 154.1; Estimated Glomerular Filt Rate > 60; Glucose Random 103 mg/dL (60-115); Lipase 15 U/L (8-78); Potassium 3.7 mmol/L (3.3-5.1); Sodium 137 mmol/L (135-145); Total Protein 7.6 g/dL (6.5-8.0)
[2023-02-27 17:49] LABS: HCG Quantitative < 2 mIU/mL
[2023-02-27 20:11] VITALS: BP 120/81; PULSE 85; RESP 16; O2SAT 98
[2023-02-27] MEDS: Ondansetron ODT 4 MG TAB.RAPDIS TRANSLINGU (20:15)
[2023-02-27] MEDS: Magnesium Hydrox/Alum Hydrox 30 ML ORAL.SUSP PO (20:16)
[2023-02-27] MEDS: Lidocaine HCl Viscous 2 % 15 ML SOLUTION MUCOUS MEM (20:16)
[2023-02-27] MEDS: PHENobarb/Hyoscy/Atropine/Scop 10 ML ELIXIR PO (20:17)
[2023-02-27] MEDS: Acetaminophen 325 MG TABLET 975 MG PO (21:44)
== END 2023-02-27 22:25 | disposition home or self-care (01) ==
PROVIDERS: Physician Assistant; Emergency Provider Emergency Medicine Emergency Medical Services
DX: K52.9 Noninfective gastroenteritis and colitis, unspecified (principal); N93.9 Abnormal uterine and vaginal bleeding, unspecified
CPT/HCPCS: 36415; 80048; 80076; 81001; 83690; 84702; 85025; 85610; 99283; 99284

== ENCOUNTER 2024-07-10 15:23 | Outpatient (REF) | payer MEDICAID, SELFPAY ==
[2024-07-10 16:36] LABS: MANUAL DIFF FLAG NO
[2024-07-10 16:49] LABS: Basophils Absolute Auto 0.1 X10*3/uL (0.0-0.2); Basophils Percent Auto 0.6 % (0-2); Eosinophils Absolute Auto 0.1 X10*3/uL (0.0-0.4); Eosinophils Percent Auto 1.5 % (0-4); Hematocrit 39.8 % (37.0-47.0); Imm Gran Abs Auto 0.03 X10*3/uL (0.00-0.03); Imm Gran Pct Auto 0.4 % (0.0-0.4); Lymphocytes Absolute Auto 2.6 X10*3/uL (1.2-4.9); Lymphocytes Percent Auto 33.4 % (20-40); Mean Corpuscular HGB Conc 32.7 g/dl (31.0-35.0); Mean Corpuscular Hemoglobin 28.8 pg (27.0-33.0); Mean Corpuscular Volume 88.1 fL (80.0-98.0); Monocytes Absolute Auto 0.4 X10*3/uL (0.1-1.2); Monocytes Percent Auto 5.5 % (2-11); Neutrophils Absolute Auto 4.6 x10*3/uL (2.0-8.3); Neutrophils Percent Auto 58.6 % (45-73); Platelet Count 340 X10*3/uL (160-400); Red Blood Count 4.52 X10*6/uL (4.20-5.50); Red Cell Distribution Width 14.5 % (11.0-16.0); White Blood Count 7.9 X10*3/uL (4.8-10.8)
[2024-07-10 16:54] LABS: Estimated Average Glucose 100 mg/dL; Hemoglobin A1C 110.9583 umol/L; Hemoglobin A1c % 5.1 % (<6.0); Total Hemoglobin (HGBA1C) 3497.7547 umol/L
[2024-07-10 19:07] LABS: Alanine Aminotransferase 18 U/L (0-31); Albumin Level 4.6 g/dL (3.5-5.0); Alkaline Phosphatase 61 U/L (39-117); Anion Gap 15 (12-20); Aspartate Amino Transferase 25 U/L (5-31); Bilirubin Total 0.4 mg/dL (0.0-1.0); Blood Urea Nitrogen 13 mg/dL (9-16); Calcium 9.7 mg/dL (8.4-10.2); Carbon Dioxide 23 mmol/L (22-29); Chloride 109 mmol/L (96-108); Estimated Glomerular Filt Rate > 60; Glucose Random 86 mg/dL (60-115); Potassium 4.3 mmol/L (3.3-5.1); Sodium 143 mmol/L (135-145); Total Protein 7.1 g/dL (6.5-8.0)
[2024-07-10 19:21] LABS: TSH reflex Free T4 1.52 uIU/mL (0.32-4.0)
[2024-07-11 01:36] LABS: CT PCR NOT DETECTED (Not Detect.); NG PCR NOT DETECTED (Not Detect.)
[2024-07-11 08:48] LABS: HIV AB/AG Nonreactive (Nonreactive); HIV Num 1 0.05 S/CO (0.00-0.99); ~HepC Num1 0.07 S/CO (0.00-0.79); ~Hepatitis C Antibody Nonreactive (Nonreactive)
[2024-07-13 11:37] LABS: RPR Rapid Plasma Reagin NON-REACTIVE (NON-REACTIVE)
== END 2024-07-10 15:24 | disposition home or self-care (01) ==
LOC: HO.HHCL 15:23
PROVIDERS: Visit Provider General Practice
DX: Z11.3 Encounter for screening for infections with a predominantly sexual mode of transmission (principal); Z11.4 Encounter for screening for human immunodeficiency virus [HIV]; L83 Acanthosis nigricans; F41.9 Anxiety disorder, unspecified
CPT/HCPCS: 36415; 80053; 83036; 84443; 85025; 86592; 86803; 87389; 87491; 87591

== ENCOUNTER 2024-09-01 07:39 | Emergency (ER) | payer MEDICAID, SELFPAY ==
[2024-09-01 07:43] VITALS: BP 134/80; PULSE 100; RESP 18; TEMP 37; O2SAT 97
[2024-09-01] MEDS: Ondansetron ODT 4 MG TAB.RAPDIS TRANSLINGU (08:29)
--- NOTE | 2024-09-01 08:34 | PC.NURSE ---
rescue worker utilized. a&ox4. vss and up to date. pt presents to the ED c/o generalized abd pain/n/v/d/decreased PO intake/and chills x 1700 yesterday after eating a burrito at the mall. pt accompanied w/ son who has similar sx after eating the same food. pt denies any blood in stool/vomit or any fevers. medication administered per provider order. effectiveness pending. will assess PO challenge shortly. on RA w/o difficulty - no sob/wob noted. respirations even/unlabored. plan of care ongoing. call tucker placed within reach.
--- NOTE | 2024-09-01 08:36 | ED_ITS ---
HPI - Nausea/Vomiting/Diarrhea General Chief complaint: Nausea/Vomiting/Diarrhea Stated complaint: Vomiting, diarrhea Time Seen by Provider: 09/01/24 08:00 Source: patient and conference interpreter Mode of arrival: ambulatory History of Present Illness ED Provider: Rodolfo GRANT Narrative: 29-year-old female with presentation for having had some bad food last night at approximately 18:00 and developed nausea, vomiting, diarrhea afterwards. Related Data Home Medications ?Medication ?Instructions ?Recorded ?Confirmed levonorgestrel 21 mcg/24 hr (up to intrauterine 12/20/22 12/20/22 8 years) 52 mg intrauterine device (Mirena) Previous Rx's ?Medication ?Instructions ?Recorded ondansetron 4 mg disintegrating 4 mg PO Q8H PRN nausea and 02/27/23 tablet vomiting #7 tabs pantoprazole 40 mg tablet,delayed 40 mg PO DAILY #14 tabs 02/27/23 release (Protonix) Allergies Allergy/AdvReac Type Severity Reaction Status Date / Time No Known Allergies Allergy Verified 09/01/24 07:46 [No Known Allergies*] Review of Systems Review of Systems: Pertinent positives and negatives as stated in HPI PMFSH Past Medical History Source: nursing notes reviewed Surgical History No history of previous surgery Family History Family History Mother No problems noted. Father History of heart attack Paternal Grandmother Hx of diabetes mellitus Maternal Grandmother No problems noted. Maternal Grandfather No problems noted. Social History Social History Household Members: Children Alcohol intake: unknown Smoked in Last 30 Days: No Use of substances other than those prescribed or required for medical reasons: No Substance Use Type: Marijuana Advance Directives: No Advance Directives Information Provided: Yes Patient : No Current occupational exposures/hazards: No Gender identity: Female Physical Exam Vital Signs: Vital Signs: Last Vital Signs Temp 98.6 F 09/01/24 07:43 Pulse 100 09/01/24 07:43 Resp 18 09/01/24 07:43 BP 134/80 09/01/24 07:43 Pulse Ox 97 09/01/24 07:43 O2 Del Method Room Air 09/01/24 07:43 BMI result Body Mass Index 30.0 VITAL SIGNS: Reviewed. GENERAL: Well developed, well nourished, in no acute distress. HEAD: Normocephalic/atraumatic EYES: PERRLA, EOMI LUNGS: Normal breath sounds. No adventitious sounds or accessory muscle use. SpO2<97> CARDIOVASCULAR: Regular rate and rhythm without noted murmurs ABDOMEN: Soft, non-tender, non-distended with bowel sounds. MUSCULOSKELETAL: No tenderness, deformities, or effusions noted on gross inspection. EXTREMITIES: No cyanosis, clubbing or edema. SKIN: Inspection of the skin reveals no rashes NEUROLOGIC: Alert and oriented x 4. Strength and sensation to light touch were grossly intact x 4. Medications Administered Discontinued Medications Generic Name Dose Route Start Last Admin Trade Name Freq PRN Reason Stop Dose Admin Dicyclomine HCl 10 mg 09/01/24 08:38 09/01/24 08:51 Dicyclomine Hcl 10 Mg Capsule PO 09/01/24 08:39 10 mg ONCE ONE Administration Ondansetron HCl 4 mg 09/01/24 08:19 09/01/24 08:29 Ondansetron Odt 4 Mg Tab.Rapdis TRANSLINGU 09/01/24 08:20 4 mg ONCE ONE Administration Medical Decision Making Medical Decision Making [facility] Narrative: 29-year-old female with history and clinical presentation, DD DX: Food poisoning, gastroenteritis, possible urinary tract infection but felt to be less likely. Patient received Bentyl and Zofran and is now feeling much better and tolerating oral intake, viral testing is pending, patient is discharged and will be called if anything is positive. Differential Diagnosis Differential Diagnoses: The differential diagnosis associated with the presentation includes See above Admission/Observation Consideration of admission/observation: Escalation of care including admission/observation considered Patient does not meet inpatient level of care. Lab Data [facility] Lab Attestation statement: I reviewed the patient's lab results. See above Discharge Plan Discharge Clinical Impression: Food poisoning Patient Disposition: Home, Self-Care Instructions: Food Poisoning (ED), Nutrition Tips for Relief of Diarrhea (ED) Additional Instructions: Medication to control your nausea has been sent to your pharmacy, recommend addressing any diarrheal symptoms with dietary changes. Follow-up with your primary care doctor and do not hesitate to return to the emergency room for any worsening of symptoms. Prescriptions: No Action pantoprazole [Protonix] 40 mg tablet,delayed release (DR/EC) 40 mg PO DAILY Qty: 14 0RF ondansetron 4 mg tablet,disintegrating 4 mg PO Q8H PRN (Reason: nausea and vomiting) Qty: 7 0RF Mirena 21 mcg/24 hours (8 yrs) 52 mg intrauterine device intrauterine Print Language: Slovenian
[2024-09-01] MEDS: Dicyclomine HCl 10 MG CAPSULE PO (08:51)
--- NOTE | 2024-09-01 08:52 | PC.NURSE ---
swabs obtained/sent to lab. medication administered per provider order. pt aware urine specimen is needed. plan of care ongoing.
--- NOTE | 2024-09-01 09:14 | PC.NURSE ---
pt tolerated PO challenge w/o difficulty - pt able to tolerate saltine crackers and gingerale.
[2024-09-01 09:35] LABS: Influenza A PCR NEGATIVE (Negative); Influenza B PCR NEGATIVE (Negative); Resp Syncy Virus RNA Qual PCR NEGATIVE (Negative); SARS COV2 PCR INHOUSE NEGATIVE (Negative)
[2024-09-01 09:45] LABS: UPreg QC Valid YES; Urine Pregnancy NEGATIVE (NEGATIVE)
[2024-09-01 09:51] VITALS: BP 110/67; PULSE 76; RESP 16; TEMP 36.6; O2SAT 99
[2024-09-01 09:53] VITALS: BP 110/67; PULSE 76; RESP 16; TEMP 36.6; O2SAT 99
== END 2024-09-01 09:53 | disposition home or self-care (01) ==
PROVIDERS: Emergency Provider Student in an Organized Health Care Education/Training Program
DX: A05.9 Bacterial foodborne intoxication, unspecified (principal); R11.2 Nausea with vomiting, unspecified; R19.7 Diarrhea, unspecified; F12.90 Cannabis use, unspecified, uncomplicated; Z03.818 Encounter for observation for suspected exposure to other biological agents ruled out
CPT/HCPCS: 0241U; 81025; 99283; 99284

== ENCOUNTER 2024-09-23 11:47 | Emergency (ER) | payer MEDICAID, SELFPAY ==
[2024-09-23] VITALS (7 sets, daily range): BP systolic 98–124; BP diastolic 52–76; PULSE 95–138; RESP 16–22; TEMP 36.8–38.5; O2SAT 96–99; BMI 28.2
--- NOTE | ~2024-09-23 | XR_ITS ---
EXAMINATION: XR THORACIC SPINE CLINICAL INFORMATION: fall COMPARISON: None available. TECHNIQUE: 3 views of the thoracic spine were obtained. FINDINGS: No acute cortical disruption or malalignment. S-shaped curvature of the upper thoracic spine. No lytic or blastic lesions. XR/XR thoracic spine 2V IMPRESSION: No acute fracture or trauma-related listhesis. Electronically signed by: Ryan Devi MD 09/23/2024 12:55 PM [facility] [place]
--- NOTE | ~2024-09-23 | XR_ITS ---
EXAMINATION: XR LUMBOSACRAL SPINE CLINICAL INFORMATION: fall COMPARISON: None available. TECHNIQUE: Three views of the lumbosacral spine. FINDINGS: No acute cortical disruption or gross malalignment. No lytic or blastic lesions. Minimal Schmorl nodes, multilevel thoracolumbar spine. Rudimentary ribs at T12. Probable spina bifida occulta S1, congenital. XR/XR lumbar spine 2-3V IMPRESSION: No acute fracture or trauma-related listhesis. Electronically signed by: Ryan Devi MD 09/23/2024 12:56 PM EST
--- NOTE | 2024-09-23 12:19 | ED.GENADULT ---
HPI - General Adult General Chief complaint: Nausea/Vomiting/Diarrhea Stated complaint: VOMITING 2 DAYS,ROGERS,DIZZY Time Seen by Provider: 09/23/24 19:05 Source: patient Mode of arrival: EMS Limitations: no limitations Related Data Home Medications ?Medication ?Instructions ?Recorded ?Confirmed levonorgestrel 21 mcg/24 hr (up to intrauterine 12/20/22 12/20/22 8 years) 52 mg intrauterine device (Mirena) Previous Rx's ?Medication ?Instructions ?Recorded ondansetron 4 mg disintegrating 4 mg PO Q8H PRN nausea and 02/27/23 tablet vomiting #7 tabs pantoprazole 40 mg tablet,delayed 40 mg PO DAILY #14 tabs 02/27/23 release (Protonix) acetaminophen 325 mg tablet 650 mg (2 x 325 mg) PO Q6H PRN 09/23/24 (Tylenol) fever or pain #30 tabs ibuprofen 600 mg tablet 600 mg PO Q6H PRN fever or pain 09/23/24 #30 tabs ondansetron 4 mg disintegrating 4 mg PO Q8H PRN nausea and 09/23/24 tablet vomiting #7 tabs Allergies Allergy/AdvReac Type Severity Reaction Status Date / Time No Known Allergies Allergy Verified 09/23/24 12:14 [No Known Allergies*] Review of Systems Review of Systems: ROS as per [facility] Past Medical History Surgical History No history of previous surgery Family History Family History Mother No problems noted. Father History of heart attack Paternal Grandmother Hx of diabetes mellitus Maternal Grandmother No problems noted. Maternal Grandfather No problems noted. Social History Social History Household Members: Children Alcohol intake: unknown Smoked in Last 30 Days: No Substance Use Type: Marijuana Advance Directives: No Advance Directives Information Provided: Yes Do you have a plan to hurt others: No Plan Current occupational exposures/hazards: No Gender identity: Female Physical Exam ED Vital Signs: Vital Signs - 24 hr 09/23/24 12:11 09/23/24 18:30 09/23/24 19:04 Temperature 99.9 F 101.3 F H 99.1 F Pulse Rate 118 H 138 H 122 H Respiratory Rate 20 22 H 20 Blood Pressure 104/65 111/69 112/58 L Pulse Oximetry 98 96 97 Oxygen Delivery Method Room Air Room Air Room Air 09/23/24 19:28 09/23/24 20:40 Temperature 99 F 98.3 F Pulse Rate 112 H 95 Respiratory Rate 22 H 18 Blood Pressure 99/56 L 98/52 L Pulse Oximetry 99 98 Oxygen Delivery Method Room Air BMI result Body Mass Index 28.2 Gen: NAD, AOx3 HEENT: NCAT, EOMI, normal conjunctiva CV: Tachycardic rate, regular rhythm Pulm: CTAB, no increased work of breathing GI: Soft, NTND, no rebound, guarding or rigidity Neuro: Grossly non focal Course Course Course Narrative: RME, this is a rapid medical exam performed by Andrea Aguilar please refer to primary provider for complete H&P- 29-year-old female with past medical history significant for scoliosis presents for evaluation of body aches, vomiting, back pain and headache. She reports falling down 7 steps 4 days ago. She is concerned about her scoliosis after the fall. ? Plan for labs, viral swabs potassium, x-rays of the spine Medications Administered Generic Name Dose Route Start Last Admin Trade Name Freq PRN Reason Stop Dose Admin Lactated Ringer's 1,000 mls @ 999 mls/hr 09/23/24 20:17 09/23/24 20:41 Lr IV 09/23/24 21:17 999 mls/hr .Q1H1M ONE Administration Discontinued Medications Generic Name Dose Route Start Last Admin Trade Name Freq PRN Reason Stop Dose Admin Acetaminophen 650 mg 09/23/24 18:31 09/23/24 18:34 Acetaminophen 325 Mg Tablet PO 09/23/24 18:32 650 mg ONCE ONE Administration Sodium Chloride 1,000 mls @ 999 mls/hr 09/23/24 19:15 09/23/24 20:44 Ns IV 09/23/24 20:15 Infused .Q1H1M KULDIP Infusion Ibuprofen 600 mg 09/23/24 19:06 09/23/24 19:27 Ibuprofen 600 Mg Tablet PO 09/23/24 19:07 600 mg ONCE ONE Administration Ondansetron HCl 4 mg 09/23/24 18:31 09/23/24 18:34 Ondansetron Odt 4 Mg Tab.Rapdis TRANSLINGU 09/23/24 18:32 4 mg ONCE ONE Administration Medical Decision Making Medical Decision Making [facility] Narrative: Differential diagnosis includes, but is not limited to viral syndrome, gastroenteritis, electrolyte abnormality, dehydration, acute kidney injury. Patient is febrile and tachycardic on arrival, which resolve with antipyretics and IV fluids. Exam is benign and reassuring. I reviewed the patient's blood work, viral panel and x-rays as below. I suspect COVID-19 is likely etiology of symptoms, fever and tachycardia. Patient is treated supportively with IV fluids, Tylenol, Motrin and Zofran. On re-examination, patient is well-appearing and in no acute distress. ?Patient states she feels better.?There is no indication for further emergent evaluation in this otherwise well-appearing patient as above. ?Patient is provided written and verbal instructions, educational materials, prescription for Tylenol, ibuprofen and Zofran, recommendations for outpatient follow-up, strict return precautions and teach back is performed. ?Patient states understanding and agreement with plan of care. ?Patient is discharged home in stable and improved condition. Admission/Observation Consideration of admission/observation: Escalation of care including admission/observation considered Lab Data [facility] Lab Attestation statement: I reviewed the patient's lab results. I independently reviewed and interpreted the patient's labs including CBC, metabolic panel, lipase and beta HCG, which are overall very benign and reassuring. Patient tests positive for COVID-19. 09/23/24 13:45 09/23/24 13:45 Labs: Lab Results 09/23/24 Range/Units 13:45 WBC 12.8 H (4.8-10.8) X10*3/uL RBC 4.53 (4.20-5.50) X10*6/uL Hgb 13.1 (12.0-16.0) g/dl Hct 38.9 (37.0-47.0) % MCV 85.9 (80.0-98.0) fL MCH 28.9 (27.0-33.0) pg MCHC 33.7 (31.0-35.0) g/dl RDW 14.1 (11.0-16.0) % Plt Count 251 D (160-400) X10*3/uL MPV 10.5 (9.4-12.3) fL Immature Gran % (Auto) 0.4 (0.0-0.4) % Neut % (Auto) 89.4 H (45-73) % Lymph % (Auto) 5.0 L (20-40) % [place] % (Auto) 5.0 (2-11) % Eos % (Auto) 0.0 (0-4) % Baso % (Auto) 0.2 (0-2) % Lymph # (Auto) 0.6 L (1.2-4.9) X10*3/uL [place] # (Auto) 0.6 (0.1-1.2) X10*3/uL Eos # (Auto) 0.0 (0.0-0.4) X10*3/uL Baso # (Auto) 0.0 (0.0-0.2) X10*3/uL Abs Immat Gran (auto) 0.05 H (0.00-0.03) X10*3/uL Absolute Neuts (auto) 11.5 H (2.0-8.3) x10*3/uL Absolute Nucleated RBC 0.000 (0.0-0.012) X10*3/uL Nucleated RBC % (auto) 0.0 (0.0-0.2) /100WBC Sodium 138 (135-145) mmol/L Potassium 3.4 D (3.3-5.1) mmol/L Chloride 106 (96-108) mmol/L Carbon Dioxide 25 (22-29) mmol/L Anion Gap 10 L (12-20) BUN 9 (9-16) mg/dL Creatinine 0.56 (0.5-1.4) mg/dL Estim Creat Clear Calc 154.5 Estimated GFR > 60 Random Glucose 97 (60-115) mg/dL Calcium 9.3 (8.4-10.2) mg/dL Total Bilirubin 0.7 (0.0-1.0) mg/dL AST 38 H (5-31) U/L ALT 55 H (0-31) U/L Alkaline Phosphatase 84 (39-117) U/L Total Protein 7.9 (6.5-8.0) g/dL Albumin 4.4 (3.5-5.0) g/dL Lipase 11 (8-78) U/L Beta HCG, Quant < 2 mIU/mL Influenza Type A (PCR) NEGATIVE (Negative) Influenza Type B (PCR) NEGATIVE (Negative) RSV RNA Qual (PCR) NEGATIVE (Negative) SARS-CoV-2 RNA (RT-PCR) POSITIVE A (Negative) Radiology Impression Discussion of test interpretation with radiology: I have reviewed the radiologist's reading. Radiologist Impression: XR/XR thoracic spine 2V IMPRESSION: No acute fracture or trauma-related listhesis. Electronically signed by: Ryan Devi MD 09/23/2024 12:55 PM EST RP Dictated By: Ryan Martin MD Signed By: <Electronically signed by Ryan Cunningahm MD in OV> 09/23/24 1255 XR/XR lumbar spine 2-3V IMPRESSION: No acute fracture or trauma-related listhesis. Electronically signed by: Ryan Devi MD 09/23/2024 12:56 PM EST RP Dictated By: Ryan Martin MD Signed By: <Electronically signed by Ryan Cunningham MD in OV> 09/23/24 1256 Discharge Plan Discharge Clinical Impression: COVID-19 Patient Disposition: Home, Self-Care Instructions: COVID-19 (Coronavirus Disease 2019) (ED) Additional Instructions: Fue evaluado en la mayda de emergencias. Blaise positivo en la prueba de COVID-19, que probablemente sea la causa de julius s?ntomas. Le recetan paracetamol, ibuprofeno y odansetr?n (un medicamento para las n?useas). Cheney estos medicamentos seg?n las indicaciones. No tome elissa?n otro medicamento antiinflamatorio no esteroideo mientras cirilo ibuprofeno (enrique la aspirina). Giovani un seguimiento con radford m?dico de atenci?n primaria seg?n sea necesario en 1 o 2 semanas. Regrese a la mayda de emergencias si presenta cualquier otro s?ntoma nuevo o preocupante. Prescriptions: New acetaminophen [Tylenol] 325 mg tablet 650 mg PO Q6H PRN (Reason: fever or pain) Qty: 30 0RF ibuprofen 600 mg tablet 600 mg PO Q6H PRN (Reason: fever or pain) Qty: 30 0RF ondansetron 4 mg tablet,disintegrating 4 mg PO Q8H PRN (Reason: nausea and vomiting) Qty: 7 0RF No Action pantoprazole [Protonix] 40 mg tablet,delayed release (DR/EC) 40 mg PO DAILY Qty: 14 0RF ondansetron 4 mg tablet,disintegrating 4 mg PO Q8H PRN (Reason: nausea and vomiting) Qty: 7 0RF Mirena 21 mcg/24 hours (8 yrs) 52 mg intrauterine device intrauterine Print Language: Ukrainian
[2024-09-23 13:50] LABS: MANUAL DIFF FLAG NO
[2024-09-23 13:53] LABS: Basophils Percent Auto 0.2 % (0-2); Hematocrit 38.9 % (37.0-47.0); Hemoglobin 13.1 g/dl (12.0-16.0); Imm Gran Abs Auto 0.05 X10*3/uL (0.00-0.03); Imm Gran Pct Auto 0.4 % (0.0-0.4); Lymphocytes Absolute Auto 0.6 X10*3/uL (1.2-4.9); Mean Corpuscular HGB Conc 33.7 g/dl (31.0-35.0); Mean Corpuscular Hemoglobin 28.9 pg (27.0-33.0); Mean Corpuscular Volume 85.9 fL (80.0-98.0); Mean Platelet Volume 10.5 fL (9.4-12.3); Monocytes Absolute Auto 0.6 X10*3/uL (0.1-1.2); Neutrophils Absolute Auto 11.5 x10*3/uL (2.0-8.3); Neutrophils Percent Auto 89.4 % (45-73); Platelet Count 251 X10*3/uL (160-400); Red Blood Count 4.53 X10*6/uL (4.20-5.50); Red Cell Distribution Width 14.1 % (11.0-16.0); White Blood Count 12.8 X10*3/uL (4.8-10.8)
[2024-09-23 14:07] LABS: Alanine Aminotransferase 55 U/L (0-31); Albumin Level 4.4 g/dL (3.5-5.0); Alkaline Phosphatase 84 U/L (39-117); Anion Gap 10 (12-20); Aspartate Amino Transferase 38 U/L (5-31); Bilirubin Total 0.7 mg/dL (0.0-1.0); Blood Urea Nitrogen 9 mg/dL (9-16); Calcium 9.3 mg/dL (8.4-10.2); Carbon Dioxide 25 mmol/L (22-29); Chloride 106 mmol/L (96-108); Creatinine Clr Calc Pharmacy 154.5; Estimated Glomerular Filt Rate > 60; Glucose Random 97 mg/dL (60-115); Lipase 11 U/L (8-78); Potassium 3.4 mmol/L (3.3-5.1); Sodium 138 mmol/L (135-145); Total Protein 7.9 g/dL (6.5-8.0)
[2024-09-23 14:17] LABS: HCG Quantitative < 2 mIU/mL
[2024-09-23 14:30] LABS: Influenza A PCR NEGATIVE (Negative); Influenza B PCR NEGATIVE (Negative); Resp Syncy Virus RNA Qual PCR NEGATIVE (Negative); SARS COV2 PCR INHOUSE POSITIVE (Negative)
[2024-09-23] MEDS: Acetaminophen 325 MG TABLET 650 MG PO (18:34)
[2024-09-23] MEDS: Ondansetron ODT 4 MG TAB.RAPDIS TRANSLINGU (18:34)
[2024-09-23] MEDS: 0.9 % Sodium Chloride 1,000 ML 999 ML IV (19:26)
[2024-09-23] MEDS: Ibuprofen 600 MG TABLET PO (19:27)
[2024-09-23] MEDS: Lactated Ringers 1,000 ML 999 ML IV (20:41)
[2024-09-24 02:01] VITALS: BP 113/71; PULSE 102; RESP 18; TEMP 36.9; O2SAT 97
[2024-09-24 03:53] VITALS: BP 114/66; PULSE 93; RESP 12; TEMP 37.1; O2SAT 100
[2024-09-24 04:35] VITALS: BP 114/73; PULSE 100; RESP 18; TEMP 37.4; O2SAT 99
[2024-09-24] MEDS: Acetaminophen 325 MG TABLET 975 MG PO (05:31)
[2024-09-24 05:33] VITALS: BP 114/73; PULSE 100; RESP 18; TEMP 37.4; O2SAT 99
== END 2024-09-24 05:34 | disposition home or self-care (01) ==
PROVIDERS: Physician Assistant; Emergency Provider Emergency Medicine Emergency Medical Services; PCP General Practice
DX: U07.1 COVID-19 (principal); R11.2 Nausea with vomiting, unspecified; R51.9 Headache, unspecified; M79.10 Myalgia, unspecified site; M54.50 Low back pain, unspecified; R42 Dizziness and giddiness; Z79.899 Other long term (current) drug therapy
CPT/HCPCS: 0241U; 36415; 72070; 72100; 80053; 83690; 84702; 85025; 96360; 96361; 99284; 99285; J7120

== ENCOUNTER → 2024-09-23 12:20 | Outpatient (BNV) | payer MEDICAID, SELFPAY | PROVIDERS: Visit Provider Radiology Diagnostic Radiology | DX: M54.9 Dorsalgia, unspecified (principal) | CPT/HCPCS: 72070; 72100 ==

== ENCOUNTER 2024-11-03 15:53 | Outpatient (REF) | payer MEDICAID, SELFPAY ==
[2024-11-03 18:44] LABS: TSH reflex Free T4 2.88 uIU/mL (0.32-4.0)
--- OUTSIDE RECORDS SUMMARY | 2024-11-03 19:33 | XMS_ITS ---
Author Organization [facility] Address [address] [place] [address] Care Team Providers Care Risk Control Consultant Name Role Phone AURA FRANKLIN Unavailable Social History Sex Assigned At : Social History Observation Description Sex Assigned At Female Encounters Encounter Location Date Provider Diagnosis [facility] [address] [place] [address] 06/25/2023 AURA LEMUS Plan Of Treatment No Information Progress Notes * LEV PORTILLO NDOB:1995 (29 yo F)Acc No.[id number]:06/25/2023 Progress Notes Patient:?POP PORTILLO Provider:?AURA LEMUS :1995???Age:28 Y???Sex:Female D ate:06/25/2023 Address[address] [address], [place], [id number] Structured Data:Hardin : No Subjective: * Chief Complaints: * ??? * Medical History:? Objective: * Vitals:? Assessment: Plan: * Treatment: * Billing Information: * Visit Code:? * Procedure Codes:? * Electronic signature of VIKTOR LEMUS MD, [id number] on 11/03/2024 at 08:33 PM BOT Sign off status: Pending * Provider:?AURA LEMUS Date:?1 Generated for Joann mendoza/Geovany/Alice on:?11/03/2024 08:33 PM BOT
--- OUTSIDE RECORDS SUMMARY | 2024-11-03 19:33 | XMS_ITS | Encounter Summary ---
Author Organization [employer] Address [address] [place] [address] Care Team Providers Care Senior Software Quality Analyst Name Role Phone Francisca Vargas MD Primary Care Provider [phone] Encounter Details Date Type Department Care Team (Late st Contact Info) Description 06/04/2023 Orders Only [facility] [address] [place] [address] ProviderJustin MD Social History Tobacco Use Types Packs/Day Years Used Date Smoking Tobacco: Never Passive Smoke Exposure: Never Smokeless Tobacco: Never Comments:Never smoked Alcohol Use Standard Drinks/Week Comments Never 0 (1 standard drink = 0.6 oz pur e alcohol) Overall Financial Resource Strain (CARDIA) Answe r Date Recorded How hard is it for you to pa y for the very basics like food, housing, medical care, and heating? Not hard at all 09/14/2022 Alcohol Answer Date Recorded Q1: How often do you have a drink containing alc ohol? 1 09/14/2022 Q2: How many drinks containi ng alcohol do you have on a typical day when you are drinking? 0 09/14/2022 Q3: How often do you have six or more drinks on one occasion? 1 09/14/2022 Depression Answer Date Recorded Patient Health Questionnaire-9 Score 7 09/14/2022 Intimate Partner Violence Answer Date R ecorded Within the last year, have y ou been afraid of your partner or ex-partner? 2 09/14/2022 Within the last year, have y ou been humiliated or emotionally abused in other ways by your partner or ex-partner? 2 Within the last year, have y ou been kicked, hit, slapped, or otherwise physically hurt by your partner or ex-partner? 2 09/14/2022 Within the last year, have y ou been raped or forced to have any kind of sexual activity by your partner or ex-partner? 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 on file Not on f ile Not on file documented as of this encounter Plan of Treatment Upcoming Encounters Date Type Department Care Team (Late st Contact Info) Description 02/09/2025 2:30 PM EDT Office Visit [facility] [address] [place], [place] [phone] BakariMaria L pedro, OD [address] [place] [address] documented as of this encounter Procedures Procedure Name Priority Date/Time Associated Diagnosis Comments HM PAP/HPV Routine 06/17/2020 documented in this encounter Results * Hm Pap Smear (06/17/2020) us Historical Provider HEALTH MAINTENANCE Final Result documented in this encounter Visit Diagnoses Not on filedocumented in this encounter Additional Health Concerns Assessment Noted Time PHQ-9 Depression Total Score: 7 09/14/19 23 2:03 PM EST documented as of this encounter Care Teams Senior Software Quality Analyst Relationship Specialty Start Date End Date Francisca Vargas MD [address] [place], [place] [phone] PCP - General Family Medicine 11/08/22 documented as of this encounter
--- OUTSIDE RECORDS SUMMARY | 2024-11-03 19:33 | XMS_ITS | Encounter Summary ---
Author Organization [employer] Address [address] [place] [address] Care Team Providers Care Grade Tamper Name Role Phone Francisca Vargas MD Primary Care Provider [phone] Reason for Visit * Reason Onset Date Comments Nurse Triage 04/11/2023 Encounter Details Date Type Department Care Team ([facility] st Contact Info) Description 04/11/2023 Telephone [facility] [address] [place], [place] [phone] Francisca Vargas MD [address] [place], [place] [phone] Nurse Triage Social History Tobacco Use Types Packs/Day Years [...] Industry Job Start Date Job End Date 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 Protocol Used: No Contact or Duplicate Contact Call (Adult) Protocol-Based Disposition: No Contact Call Positive Triage Question: * Message left on identified voicemail * All higher-acuity triage questions were negative * Telephone Encounter - Roslyn Ashby - 04/11/2023 11:56 AM EDT Symptoms: Body Aches, Cough, Sore Throat and Runny Nose x 3 days Outcome: Schedule an appointment to be seen within 24 hours Reason: Caller denied all higher acuity questions The caller accepted this outcome Patient speaks polish documented in this encounter Plan of Treatment Upcoming Encounters Date Type Department Care Team ([facility] st Contact Info) Description 02/09/2025 2:30 PM EDT Office Visit [facility] [address] [place] [address] Maria L Villegas, OD [address] [place], [place] [phone] documented as of this encounter Visit Diagnoses Not on filedocumented in this encounter Additional Health Concerns Assessment Noted Time PHQ-9 Depression Total Score: 7 09/14/19 23 2:03 PM EST documented as of this encounter Care Teams Grade Tamper Relationship Specialty Start Date End Date Francisca Vargas MD [address] [place] [address] PCP - General Family Medicine 11/08/22 documented as of this encounter
--- OUTSIDE RECORDS SUMMARY | 2024-11-03 19:33 | XMS_ITS | Encounter Summary ---
Author Organization [employer] Address [address] [place] [address] Care Team Providers Care Strategic Partnership Manager Name Role Phone Francisca Vargas MD Primary Care Provider [phone] Encounter Details Date Type Department Care Team (Latest Contact Info) Description 11/03/2024 Travel Social History Tobacco Use Types Packs/Day Years [...] Answer Date Recorded Patient Health Questionnaire-9 Score 17 07/10/2024 Patient Health Questionnaire-9 Score 17 07/10/2024 Last PHQ-9: Questionnaire Data Not on file 1 09/09/2023 Housing Stability Answer Date Recorded What is your housing situation today? I have analy ruiz 11/03/[address] you li ve. Do you have problems with any of the following? None of the above 11/03/2024 Food Insecurity Answer Date Recorded Within the past 12 months, y ou worried that your food would run out before you got money to buy more: Never True 11/03/2024 Within the past 12 months,th e food you bought just didn't last and you didn't have enough money to get more: Never True Transportation Answer Date Recorded In the past 12 months, has l ack of transportation kept you from medical appts, meetings, work or from getting things needed for daily living? No 11/03/2024 Intimate Partner Violence Answer Date R ecorded [...] by your partner or ex-partner? 2 09/14/2022 Utilities Answer Date Recorded In the past 12 months, has t he electric, gas, oil or water company threatened to shut off services in your home? 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 [employer] Not on file Not on f ile Not on file documented as of this encounter Plan of Treatment Upcoming Encounters Date Type Department Care Team (Late st Contact Info) Description 02/09/2025 2:30 PM EDT Office Visit [facility] [address] [place] [address] Bakari, Maria L, OD [address] [place], [place] [phone] documented as of this encounter Visit Diagnoses Not on filedocumented in this encounter Additional Health Concerns Assessment Noted Time PHQ-9 Depression Total Score: 17 024 2:58 PM EDT documented as of this encounter Care Teams Strategic Partnership Manager Relationship Specialty Start Date End Date Francisca Vargas MD [address] [place] [address] PCP - General Family Medicine 11/08/22 documented as of this encounter
--- OUTSIDE RECORDS SUMMARY | 2024-11-03 19:34 | XMS_ITS | Patient Health Record ---
Author Organization [employer] Address [address] [place] [address] Care Team Providers Care Rn Documentation Name Role Phone JESSE BURRIS Unavailable [phone] Allergies No Known Allergies Reason For Referral No Information Immunizations Vaccine Route Administration Date Status Comme nts TB Skin Test ID Intradermal 05/15/2023 Administered TB Skin Test ID Intradermal 05/28/2023 Administered Social History Tobacco Use: Social History Observation Description Date Details (start date - stop date) Never Smoker NA - NA Sex Assigned At : Social History Observation Description Sex Assigned At Female Tobacco Use/Smoking Question Answer Notes Tobacco use: nonsmoker Problems Problem Type SNOMED Code ICD Code Onset Dates Problem Status W/U Status Risk Notes Problem Encounter for issuance of medical certificate (Z02.79) Active confirmed Vital Signs Heart Rate 98 /min 12/21/2023 SE RECIBE PACIENTE FEMENINA DE 26 ANOS ALERTA, CONSCIENTE ORIENTADO EN TIEMPO, LUGAR Y PERSONA. PACIENTE REFIERE DOLOR ABDOMINAL HACE VICKI SEMANA, PACIENTE REFIERE DOLOR (8) EN ESCALA DEL 0/10. SE ORIENTA SOBRE LAS NORMAS Y POLITICAS DE LA INSTITUCION. PACIENTE PASA A JAILYN DE ESPERA PENDIENTE A EVALUACION MEDICA. Robert Healy 12/21/2023 07:40:57 PM BOT > Temperature 98.3 degrees Fahrenheit 12/21/2023 SE RECIBE PACIENTE FEMENINA DE 26 ANOS ALERTA, CONSCIENTE ORIENTADO EN TIEMPO, LUGAR Y PERSONA. PACIENTE REFIERE DOLOR ABDOMINAL HACE VICKI SEMANA, PACIENTE REFIERE DOLOR (8) EN ESCALA DEL 0/10. SE ORIENTA SOBRE LAS NORMAS Y POLITICAS DE LA INSTITUCION. PACIENTE PASA A JAILYN DE ESPERA PENDIENTE A EVALUACION MEDICA. Robert Healy Antonio 12/21/2023 07:40:57 PM BOT > Respiratory Rate 18 /min 12/21/2023 SE RECIBE PACIENTE FEMENINA DE 26 ANOS ALERTA, CONSCIENTE ORIENTADO EN TIEMPO, LUGAR Y PERSONA. PACIENTE REFIERE DOLOR ABDOMINAL HACE VICKI SEMANA, PACIENTE REFIERE DOLOR (8) EN ESCALA DEL 0/10. SE ORIENTA SOBRE LAS NORMAS Y POLITICAS DE LA INSTITUCION. PACIENTE PASA A JAILYN DE ESPERA PENDIENTE A EVALUACION MEDICA. April DawitRobert 12/21/2023 07:40:57 PM BOT > Height-cm 165.1 cm 12/21/2023 SE RECIBE PACIENTE FEMENINA DE 26 ANOS ALERTA, CONSCIENTE ORIENTADO EN TIEMPO, LUGAR Y PERSONA. PACIENTE REFIERE DOLOR ABDOMINAL HACE VICKI SEMANA, PACIENTE REFIERE DOLOR (8) EN ESCALA DEL 0/10. SE ORIENTA SOBRE LAS NORMAS Y POLITICAS DE LA INSTITUCION. PACIENTE PASA A JAILYN DE ESPERA PENDIENTE A EVALUACION MEDICA. April Pastor Robert Alvarez 12/21/2023 07:40:57 PM BOT > Oximetry 99 % 12/21/2023 SE RECIBE PACIENTE FEMENINA DE 26 ANOS ALERTA, CONSCIENTE ORIENTADO EN TIEMPO, LUGAR Y PERSONA. PACIENTE REFIERE DOLOR ABDOMINAL HACE VICKI SEMANA, PACIENTE REFIERE DOLOR (8) EN ESCALA DEL 0/10. SE ORIENTA SOBRE LAS NORMAS Y POLITICAS DE LA INSTITUCION. PACIENTE PASA A JAILYN DE ESPERA PENDIENTE A EVALUACION MEDICA. Robert Healy 12/21/2023 07:40:57 PM BOT > Blood pressure diastolic 83 mm Hg 12/21/2023 SE RECIBE PACIENTE FEMENINA DE 26 ANOS ALERTA, CONSCIENTE ORIENTADO EN TIEMPO, LUGAR Y PERSONA. PACIENTE REFIERE DOLOR ABDOMINAL HACE VICKI SEMANA, PACIENTE REFIERE DOLOR (8) EN ESCALA DEL 0/10. SE ORIENTA SOBRE LAS NORMAS Y POLITICAS DE LA INSTITUCION. PACIENTE PASA A JAILYN DE ESPERA PENDIENTE A EVALUACION MEDICA. Robert Healy Antonio 12/21/2023 07:40:57 PM BOT > Weight-kg 85.73 kg 12/21/2023 SE RECIBE PACIENTE FEMENINA DE 26 ANOS ALERTA, CONSCIENTE ORIENTADO EN TIEMPO, LUGAR Y PERSONA. PACIENTE REFIERE DOLOR ABDOMINAL HACE VICKI SEMANA, PACIENTE REFIERE DOLOR (8) EN ESCALA DEL 0/10. SE ORIENTA SOBRE LAS NORMAS Y POLITICAS DE LA INSTITUCION. PACIENTE PASA A JAILYN DE ESPERA PENDIENTE A EVALUACION MEDICA. Robert Healy Antonio 12/21/2023 07:40:57 PM BOT > Height 65 in 12/21/2023 SE RECIBE PACIENTE FEMENINA DE 26 ANOS ALERTA, CONSCIENTE ORIENTADO EN TIEMPO, LUGAR Y PERSONA. PACIENTE REFIERE DOLOR ABDOMINAL HACE VICKI SEMANA, PACIENTE REFIERE DOLOR (8) EN ESCALA DEL 0/10. SE ORIENTA SOBRE LAS NORMAS Y POLITICAS DE LA INSTITUCION. PACIENTE PASA A JAILYN DE ESPERA PENDIENTE A EVALUACION MEDICA. Robert Healy Antonio 12/21/2023 07:40:57 PM BOT > Blood pressure systolic 123 mm Hg 12/21/2023 SE RECIBE PACIENTE FEMENINA DE 26 ANOS ALERTA, CONSCIENTE ORIENTADO EN TIEMPO, LUGAR Y PERSONA. PACIENTE REFIERE DOLOR ABDOMINAL HACE VICKI SEMANA, PACIENTE REFIERE DOLOR (8) EN ESCALA DEL 0/10. SE ORIENTA SOBRE LAS NORMAS Y POLITICAS DE LA INSTITUCION. PACIENTE PASA A JAILYN DE ESPERA PENDIENTE A EVALUACION MEDICA. Robert Healy Antonio 12/21/2023 07:40:57 PM BOT > Weight 189 lbs 12/21/2023 SE RECIBE PACIENTE FEMENINA DE 26 ANOS ALERTA, CONSCIENTE ORIENTADO EN TIEMPO, LUGAR Y PERSONA. PACIENTE REFIERE DOLOR ABDOMINAL HACE VICKI SEMANA, PACIENTE REFIERE DOLOR (8) EN ESCALA DEL 0/10. SE ORIENTA SOBRE LAS NORMAS Y POLITICAS DE LA INSTITUCION. PACIENTE PASA A JAILYN DE ESPERA PENDIENTE A EVALUACION MEDICA. Robert Healy Antonio 12/21/2023 07:40:57 PM BOT > BMI 31.45 kg/m2 12/21/2023 SE RECIBE PACIENTE FEMENINA DE 26 ANOS ALERTA, CONSCIENTE ORIENTADO EN TIEMPO, LUGAR Y PERSONA. PACIENTE REFIERE DOLOR ABDOMINAL HACE VICIK SEMANA, PACIENTE REFIERE DOLOR (8) EN ESCALA DEL 0/10. SE ORIENTA SOBRE LAS NORMAS Y POLITICAS DE LA INSTITUCION. PACIENTE PASA A JAILYN DE ESPERA PENDIENTE A EVALUACION MEDICA. Robert Healy Antonio 12/21/2023 07:40:57 PM BOT > Encounters Encounter Location Date Provider Diagnosis [facility] [address] [place] [address] 12/21/2023 JESSE BURRIS Epigastric abdominal pain R10.13 Assessments Encounter Date Diagnosis (ICD Code) Assessment Notes Treatment Notes Treatment Clinical Notes Section Notes 12/21/2023 Epigastric abdominal pain (ICD-10 - R10.13) PT REFER THAT HAS BEEN WITH EPIGASTRIC ABDOMINAL PAIN SINCE 1 WEEK AGO. NO HX OF DISEASE. NO ALLERGIC TO MEDICATIONS. 12/21/2023 Other PEPCID 40MG PO BENTYL 20MG IM PT DENY MEDICATIONS AND GO. / ABANDONO. PT REFER THAT HAS BEEN WITH EPIGASTRIC ABDOMINAL PAIN SINCE 1 WEEK AGO. NO HX OF DISEASE. NO ALLERGIC TO MEDICATIONS. Plan Of Treatment No Information Insurance Providers Payer Name Payer Address Payer Phone Subscriber Number Group Number Insured Name Patient Relationship to Insured Coverage Start Date Coverage End Date PLAN ITZEL BELLE PAULOCHARISSE YUSUF KHOURY [address], [place] [id number] LEV PORTILLO Self - patient is the insured 3
--- OUTSIDE RECORDS SUMMARY | 2024-11-03 19:34 | XMS_ITS | Encounter Summary ---
Author Organization [employer] Address [address] [facility] [address] [place] [address] Care Team Providers Care Line Camera Operator Name Role Phone Francisca Vargas MD Primary Care Provider [phone] Reason for Visit * Reason Onset Date Comments Appointment Request 11/03/2024 Encounter Details Date Type Department Care Team ([facility] st Contact Info) Description 11/03/2024 Telephone [facility] MEDICINE [address] [place], [place] [phone] Francisca Vargas MD [address] [place], [place] [phone] Appointment Request Social History Tobacco Use Types Packs/Day Years [...] Industry Job Start Date Job End Date 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 15 MIN. documented in this encounter Plan of Treatment Upcoming Encounters Date Type Department Care Team (Late st Contact Info) Description 02/09/2025 2:30 PM EDT Office Visit [facility] OPTOMETRY [address] [place], [place] [phone] BakariMaria L, OD [address] [place] [address] documented as of this encounter Visit Diagnoses Not on filedocumented in this encounter Additional Health Concerns Assessment Noted Time PHQ-9 Depression Total Score: 17 024 2:58 PM EDT documented as of this encounter Care Teams Line Camera Operator Relationship Specialty Start Date End Date Francisca Vargas MD [address] [place] [address] PCP - General Family Medicine 11/08/22 documented as of this encounter
--- OUTSIDE RECORDS SUMMARY | 2024-11-03 19:34 | XMS_ITS | Encounter Summary ---
Author Organization [email or web address] Address [address] [facility] [address] [place] [address] Care Team Providers Care Business Services Vice President Name Role Phone Francisca Vargas MD Primary Care Provider [phone] Reason for Referral * Consultation (Routine) - Pending Review Specialty Diagnoses / Procedures Referred By Perfecto dean Referred To Contact Dermatology / Family Medicine Diagnoses Acanthosis nigricans Tinea corporis Mason Ruvalcaba MD [address] [place] [address] Phone: tel: fax: Anabela Walton MD [address] [place] [address] Phone: tel: fax: Referral ID Status Reason Start Date Expiration Date Visits Requested Visits Authorized [id number] Pending Review Consult and Treat 11/03/2024 11/03/2025 1 1 * Consultation (Routine) - Pending Review Specialty Diagnoses / Procedures Referred By Perfecto dean Referred To Contact Breast Surgery Diagnoses Discharge from breast Mason Ruvalcaba MD [address] [place] [address] Phone: tel: fax: Referral ID Status Reason Start Date Expiration Date Visits Requested Visits Authorized [id number] Pending Review Specialty Services Required 11/03/2024 11/03/2025 1 1 * Imaging (Routine) - Pending Review Specialty Diagnoses / Procedures Referred By Contac t Referred To Contact Radiology Diagnoses Discharge from breast Procedures BI US Breast Complete Left Mason Ruvalcaba MD [address] [place] [address] Phone: tel: fax: [address] Phone: tel: fax: Referral ID Status Reason Start Date Expiration Date V isits Requested Visits Authorized [id number] Pending Review 11/03/2024 11/03/2025 1 1 * Imaging (Routine) - Pending Review Specialty Diagnoses / Procedures Referred By Contac t Referred To Contact Radiology Diagnoses Discharge from breast Procedures BI US Breast Complete Right Mason Ruvalcaba MD [address] [place] [address] Phone: tel: fax: [address] Phone: tel: fax: Referral ID Status Reason Start Date Expiration Date V isits Requested Visits Authorized [id number] Pending Review 11/03/2024 11/03/2025 1 1 Reason for Visit * Reason Comments Annual Exam Encounter Details Date Type Department Care Team (Late st Contact Info) Description 11/03/2024 2:30 PM EST Office Visit [facility] [address] [place], [place] [phone] Mason Ruvalcaba MD [address] [place], [place] [phone] Routine physical examination (Primary Dx); Chronic cough; Discharge from breast; Depressed mood; Acanthosis nigricans; Tinea corporis Social History Tobacco Use Types Packs/Day Years Used Date Smoking Tobacco: Never Passive Smoke Exposure: Never Smokeless Tobacco: Never Tobacco Cessation:Counseling Given: Not Answered Comments:Never smoked Alcohol Use Standard Drinks/Week Comments [...] Industry Job Start Date Job End Date 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[employer] Not on file Not on f ile Not on file documented as of this encounter Last Filed Vital Signs Vital Sign Reading Time Taken Comments Blood Pressure 134/86 11/03/2024 2:37 PM EST Pulse 88 11/03/2024 2:37 PM EST Temperature 36.6 ??C (97.8 ??F) 11/03/2024 2:37 PM ES T Respiratory Rate 20 11/03/2024 2:37 PM EST Oxygen Saturation 97% 11/03/2024 2:37 PM EST Inhaled Oxygen Concentration - - Weight 80.2 kg (176 lb 12.8 oz) 025 2:37 PM EST Height 165.1 cm (5' 5 ) 11/03/2024 2:37 PM EST Body Mass Index 29.42 11/03/2024 2:37 PM EST documented in this encounter Progress Notes * Mason Garcia MD - 11/03/2024 2:30 PM EST CADE Reyes is a 29 y.o. female who presents for Annual Exam. Pt here for a routine physical requested by her work Cough This is a chronic problem. The problem has been waxing and waning. The cough is Productive of purulent sputum. Pertinent negatives include no chest pain, ear pain, fever, headaches, rash, sore throator shortness of breath. She has tried nothing for the symptoms. Review of Systems Constitutional: Negative for appetite change, fatigue and fever. HENT: Negative for ear pain, hearing loss and sore throat. Eyes: Negative for pain and visual disturbance. Respiratory: Positive for cough. Negative for shortness of breath. Cardiovascular: Negative for chest pain and palpitations. Gastrointestinal: Negative for abdominal pain, nausea and vomiting. Genitourinary: Negative for dysuria. Skin: Negative for rash. Neurological: Negative for dizziness and headaches. Psychiatric/Behavioral: Negative for sleep disturbance. No Known Allergies OBJECTIVE Vitals: 11/03/24 1437 BP: 134/86 BP Location: Left arm Patient Position: Sitting BP Cuff Size: Adult Pulse: 88 Resp: 20 Temp: 97.8 ??F (36.6 ??C) TempSrc: Temporal SpO2: 97% Weight: 176 lb 12.8 oz (80.2 kg) Height: 5' 5 (1.651 m) Physical Exam Vitals reviewed. Constitutional: General: She is awake. Appearance: Normal appearance. She is well-developed. HENT: Head: Normocephalic and atraumatic. Right Ear: Tympanic membrane, ear canal and external ear normal. Left Ear: Tympanic membrane, ear canal and external ear normal. Nose: Nose normal. Mouth/Throat: Mouth: Mucous membranes are moist. Pharynx: Oropharynx is clear. Eyes: Extraocular Movements: Extraocular movements intact. Conjunctiva/sclera: Conjunctivae normal. Pupils: Pupils are equal, round, and reactive to light. Cardiovascular: Rate and Rhythm: Normal rate and regular rhythm. Pulses: Normal pulses. Heart sounds: Normal heart sounds. Pulmonary: Effort: Pulmonary effort is normal. Breath sounds: Normal breath sounds. No stridor. No wheezing, rhonchi or rales. Chest: Chest wall: No mass, swelling or tenderness. Breasts: Right: Nipple discharge present. No swelling, bleeding, inverted nipple, mass, skin change or tenderness. Left: Nipple discharge present. No swelling, bleeding, inverted nipple, mass, skin change or tenderness. Abdominal: General: Bowel sounds are normal. Palpations: Abdomen is soft. Musculoskeletal: General: Normal range of motion. Cervical back: Normal range of motion and neck supple. Lymphadenopathy: Upper Body: Right upper body: No supraclavicular or axillary adenopathy. Left upper body: No supraclavicular or axillary adenopathy. Skin: General: Skin is warm. Capillary Refill: Capillary refill takes less than 2 seconds. Neurological: General: No focal deficit present. Mental Status: She is alert and oriented to person, place, and time. Deep Tendon Reflexes: Reflexes are normal and symmetric. Psychiatric: Mood and Affect: Mood normal. Assessment/Plan Problem List Items Addressed This Visit Routine physical examination - Primary Physical exam today , findings as Assessment and Plan For employment purposes pt has been cleared to work with no limitations . 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 Denies any active weezing but reports a Hx of asthma, although she hasnever been treated for it On today's exam no wheezing, no ronchi, no rales Rapid flu and Covid: negative. I suspect an acute bronchitis Plan: Chest x-ray, PFTs, rule out cough variant asthma Z-pack given c/o purulent phlegm, guaifenesin prn for cough. Pending PFTs might need a beta agonist Relevant Medications azithromycin (Zithromax Z-Vikram) 250 MG tablet guaiFENesin (Robitussin) 100 MG/5ML liquid Other Relevant Orders POCT Rapid Covid-19 BinaxNOW (Completed) POCT Rapid Influenza A CEE ID NOW (Completed) POCT Rapid Influenza B CEE ID NOW (Completed) XR Chest 2 Views Discharge from breast Patient c/o bilateral nipple discharge for over 1 year. She reports that while living in [place] she had a breast US and was told everything was fine. On today's exam, pt is able to easily express a yellowish nipple discharge from both breasts, no blood. There are NO masses or associated skin changes. Plan: will initiate work up of galactorrhea with a Prolactin level, will obtain bilateral breast USand will refer to the [facility] at [facility]. Follow up with PCP after initial testing Relevant Orders Prolactin TSH with Reflex to Free T4 BI US Breast Complete Right BI US Breast Complete Left Referral to Breast Clinic Depressed mood Pt has been feeling depressed since she had an issue at a previous employment. Interesting in discussing with a clinician Acanthosis nigricans Previously referred by PCP, apparently never heard back, referral placed again Relevant Orders Referral to [facility] Derm Skin Tinea corporis Previously referred by PCP, apparently never heard back, referral placed again Not improving with Nizoral prescribed by PCP Relevant Orders Referral to [facility] Derm Skin documented in this encounter Miscellaneous Notes * Assessment & Plan Note - Mason Garcia MD - 11/03/2024 3:17 PM EST Associated Problem(s): Tinea corporis Previously referred by PCP, apparently never heard back, referral placed again Not improving with Nizoral prescribed by PCP * Assessment & Plan Note - Mason Garcia MD - 11/03/2024 3:17 PM EST Associated Problem(s): Acanthosis nigricans Previously referred by PCP, apparently never heard back, referral placed again * Assessment & Plan Note - Mason Garcia MD - 11/03/2024 3:15 PM EST Associated Problem(s): Depressed mood Pt has been feeling depressed since she had an issue at a previous employment. Interesting in discussing with a clinician * Assessment & Plan Note - Mason Garcia MD - 11/03/2024 3:05 PM EST Associated Problem(s): Routine physical examination Physical exam today , findings as Assessment and Plan For employment purposes pt has been cleared to work with no limitations . 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 Denies any active weezing but reports a Hx of asthma, although she hasnever been treated for it On today's exam no wheezing, no ronchi, no rales Rapid flu and Covid: negative. I suspect an acute bronchitis Plan: Chest x-ray, PFTs, rule out cough variant asthma Z-pack given c/o purulent phlegm, guaifenesin prn for cough. Pending PFTs might need a beta agonist * Assessment & Plan Note - Mason Garcia MD - 11/03/2024 3:01 PM EST Associated Problem(s): Discharge from breast Patient c/o bilateral nipple discharge for over 1 year. She reports that while living in [place] she had a breast US and was told everything was fine. On today's exam, pt is able to easily express a yellowish nipple discharge from both breasts, no blood. There are NO masses or associated skin changes. Plan: will initiate work up of galactorrhea with a Prolactin level, will obtain bilateral breast USand will refer to the [facility] at [facility]. Follow up with PCP after initial testing documented in this encounter Plan of Treatment Upcoming Encounters Date Type Department Care Team (Late st Contact Info) Description 02/09/2025 2:30 PM EDT Office Visit [facility] [address] [place], [place] [phone] Maria L Villegas, OD [address] [place], [place] [phone] Scheduled Orders Name Type Priority Associated Diagnoses Orde r Schedule Prolactin Lab Routine Discharge from breast Expected: 11/03/2024 (Approximate), Expires: 11/03/2025 BI US Breast Complete Right Imaging Routine Discharge from breast Ordered: 11/03/2024 BI US Breast Complete Left Imaging Routine Discharge from breast Expected: 11/03/2024, Expires: 01/01/2026 XR Chest 2 Views Imaging Routine Chronic cough Ordered: 11/03/2024 Scheduled Referrals Name Type Priority Associated Diagnoses Orde r Schedule Referral to Breast Clinic Outpatient Referral Routine Discharge from breast Expected: 11/03/2024 (Approximate), Expires: 11/03/2025 Referral to [facility] Derm Skin Outpatient Referral Routine Acanthosis nigricans Tinea corporis Expected: 11/03/2024 (Approximate), Expires: 11/03/2025 documented as of this encounter Procedures Procedure Name Priority Date/Time Associated Diagnosis Comments TSH W/REFLEX TO FT4 Routine 11/03/2024 3 :55 PM EST Discharge from breast POCT INFLUENZA B (ID NOW RAPID MOLECULAR) Routine 11/03/2024 3:08 PM EST Chronic cough POCT INFLUENZA A (ID NOW RAPID MOLECULAR) Routine 11/03/2024 3:08 PM EST Chronic cough POCT RAPID COVID ANTIGEN Routine 11/03/2024 3:02 PM EST Chronic cough documented in this encounter Results * TSH with Reflex to Free T4 (11/03/2024 3:55 PM EST) TSH reflex Free T4 2.88 0.32 - 4.0 uIU/mL [facility] Blood Venous blood specimen / Unknown 11/03/2024 3:55 PM EST 11/03/2024 6:03 PM EST us Mason Garcia MD LAB BLOOD ORDERABLES Final Result [facility] [address] [place] [phone] * POCT Rapid Influenza B CEE ID NOW (11/03/2024 3:08 PM EST) Influenza B Negative Negative, Indeterminate [facility] QC Media Lot # [id number] [facility] Lot# Expiration Date [facility] Swab 11/03/2024 3:08 PM EST Mason Garcia MD POINT OF CARE TEST EN TER/EDIT ORDERABLES Final Result Performing Organization Address [facility]/ZIP Co de Phone Number [facility] [address] [place] [phone] * POCT Rapid Influenza A CEE ID NOW (11/03/2024 3:08 PM EST) Influenza A Negative Negative, Indeterminate [facility] QC Media Lot # [id number] [facility] Lot# Expiration Date [facility] Swab 11/03/2024 3:08 PM EST Result [facility] Mason Garcia MD POINT OF CARE TEST EN TER/EDIT ORDERABLES Final Result Performing Organization Address [facility] Co de Phone Number [facility] [address] [place] [phone] * POCT Rapid Covid-19 BinaxNOW (11/03/2024 3:02 PM EST) Rapid COVID Ag Negative QC Media Lot # [id number] Lot# Expiration Date Swab 11/03/2024 3:02 PM EST Mason Garcia MD POINT OF CARE TEST EN TER/EDIT ORDERABLES Final Result documented in this encounter Visit Diagnoses Diagnosis Routine physical examination- Primary Routine general medical examination at a health care facility Chronic cough Cough Discharge from breast Depressed mood Acanthosis nigricans Acquired acanthosis nigricans Tinea corporis Dermatophytosis of the body documented in this encounter Additional Health Concerns Assessment Noted Time PHQ-9 Depression Total Score: 17 024 2:58 PM EDT documented as of this encounter Care Teams Business Services Vice President Relationship Specialty Start Date End Date Francisca Vargas MD [address] [place] [address] PCP - General Family Medicine 11/08/22 documented as of this encounter
--- OUTSIDE RECORDS SUMMARY | 2024-11-03 19:34 | XMS_ITS | Encounter Summary ---
Author Organization [employer] Address [address] [facility] [facility] 7t [place] [address] Care Team Providers Care Picking Machine Operator Name Role Phone Francisca Vargas MD Primary Care Provider [phone] Reason for Visit * Reason Onset Date Comments recall 10/15/2024 Encounter Details Date Type Department Care Team ([facility] st Contact Info) Description 10/15/2024 Telephone [facility] [address], [place] [phone] Nahomy Lakhani MA recall Social History Tobacco Use Types Packs/Day Years [...] housing situation today? I have analy ruiz 07/15/[address] you li ve. Do you have problems with any of the following? None of the above 07/15/2023 Food Insecurity Answer Date Recorded Within the past 12 months, y ou worried that your food would run out before you got money to buy more: Never True 07/15/2023 Within the past 12 months,th e food you bought just didn't last and you didn't have enough money to get more: Never True 02/2023 Transportation Answer Date Recorded In the past 12 months, has l ack of transportation kept you from medical appts, meetings, work or from getting things needed for daily living? No 07/15/2023 Intimate Partner Violence Answer Date R ecorded [...] to shut off services in your home? 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 Sent recall letter documented in this encounter Plan of Treatment Upcoming Encounters Date Type Department Care Team (Late st Contact Info) Description 02/09/2025 2:30 PM EDT Office [facility] [address] [place], [place] [phone] Maria L Villegas, OD [address] [place] [address] documented as of this encounter Visit Diagnoses Not on filedocumented in this encounter Additional Health Concerns Assessment Noted Time PHQ-9 Depression Total Score: 17 024 2:58 PM EDT documented as of this encounter Care Teams Picking Machine Operator Relationship Specialty Start Date End Date Francisca Vargas MD [address] [place] [address] PCP - General Family Medicine 11/08/22 documented as of this encounter
--- OUTSIDE RECORDS SUMMARY | 2024-11-03 19:34 | XMS_ITS ---
Author Organization [employer] Address [address] [place] [address] Care Team Providers Care Aviation Safety Technician Name Role Phone JESSE BURRIS Unavailable [phone] Allergies No Known Allergies REASON FOR VISIT DOLOR ABDOMINAL Social History Tobacco Use: Social History Observation Description Date Details (start date - stop date) Never Smoker NA - NA Sex Assigned At : Social History Observation Description Sex Assigned At Female Tobacco Use/Smoking Question Answer Notes Tobacco use: nonsmoker Vital Signs Temperature 98.3 degrees Fahrenheit 12/21/19 24 Blood pressure systolic 123 mm Hg 12/21/19 24 Blood pressure diastolic 83 mm Hg 024 Heart Rate 98 /min 12/21/2023 Respiratory Rate 18 /min 12/21/2023 Height 65 in 12/21/2023 Weight 189 lbs 12/21/2023 BMI 31.45 kg/m2 12/21/2023 Oximetry 99 % 12/21/2023 Height-cm 165.1 cm 12/21/2023 Weight-kg 85.73 kg 12/21/2023 SE RECIBE PACIENTE FEMENINA DE 26 ANOS ALERTA, CONSCIENTE ORIENTADO EN TIEMPO, LUGAR Y PERSONA. PACIENTE REFIERE DOLOR ABDOMINAL HACE VICKI SEMANA, PACIENTE REFIERE DOLOR (8) EN ESCALA DEL 0/10. SE ORIENTA SOBRE LAS NORMAS Y POLITICAS DE LA INSTITUCION. PACIENTE PASA A JAILYN DE ESPERA PENDIENTE A EVALUACION MEDICA.Robert Healy 12/21/2023 07:40:57 PM BOT > Encounters Encounter Location Date Provider Diagnosis [facility] [address] [place] [address] 12/21/2023 JESSE BURRIS Epigastric abdominal pain R10.13 [...] NO ALLERGIC TO MEDICATIONS. Plan Of Treatment Treatment Notes Assessment Notes Other PEPCID 40MG PO BENTYL 20MG IM Progress Notes * LEV PORTILLO NDOB:1995 (28 yo F)Acc No.[id number]:12/21/2023 Patient:?POP PORTILLO ETT MUSA Provider:?JESSE PHILIPPE MD :1995???Age:28 Y???Sex:Female D ate:12/21/2023 [facility] [address], [place] Structured Data: : No Subjective: * Chief Complaints: * ???1. DOLOR ABDOMINAL. * HPI: ???COVID-19 Screening:?Respiratory Illness Screening?1. Is fever present / reported??No,?2. Are respiratory illness symptom(s) present / reported??No,?3. Are other symptom(s) present / reported??No,?5. Has there been reported travel to a High Risk respiratory illness region??No,?6. Has close* contact with person(s) known to have communicable illness been reported??No,?7. Did travel or close contact (if applicable) occur within 14 days of symptom onset??No.?[facility] Enfermera:?Metodo de Transporte?[employer].?Acompanado por:?HAYLEY.?Clasificacion Triage?Urgencia.?Estado de animo?Calmado.?Completado por:?[id number].? * Medical History:?Medical His tory Verified. * Surgical History:?Denies Pas t Surgical History. * Hospitalization/Major Diagno stic Procedure:?Denies Past Hospitalization. * Family History:?Father: eleno glynn.?Mother: alive.? * Social History:?Tobacco Use:?Tobacco Use/Smoking?Tobacco use:?nonsmoker.?Drugs/Alcohol:?Caffeine?Intake:?none.? * Allergies:?N.K.D.A. Objective: * Vitals:?BP:123/83mm Hg, HR:9 8/min, RR:18/min, Temp:98.3F, Oxygen sat %:99%, Wt:189lbs, Ht: 65 in, BMI:31.45Index, Pain scale:81-10, Body Surface Area: 1.98, Wt-k.73 kg, Ht-cm: 165.1 cm SE RECIBE PACIENTE FEMENINA DE 26 ANOS ALERTA, CONSCIENTE ORIENTADO EN TIEMPO, LUGAR Y PERSONA. PACIENTE REFIERE DOLOR ABDOMINAL HACE VICKI SEMANA, PACIENTE REFIERE DOLOR (8) EN ESCALA DEL 0/10. SE ORIENTA SOBRE LAS NORMAS Y POLITICAS DE LA INSTITUCION. PACIENTE PASA A JAILYN DE ESPERA PENDIENTE A EVALUACION MEDICA. Robert Healy 12/21/2023 07:40:57 PM BOT >. Assessment: * Assessment: 1.?Epigastric abdominal pain - R10.13 (Primary)? PT REFER THAT HAS BEEN WITH EPIGASTRIC ABDOMINAL PAIN SINCE 1 WEEK AGO. NO HX OF DISEASE. NO ALLERGIC TO MEDICATIONS. Plan: * Treatment: * Billing Information: * Visit Code:? * Procedure Codes:? * Sign off status: Completed Addendum: * 12/21/2023?07:53 PM?JESSE CAMPOVERDE?>?ABANDONO * ? true * Provider:?JESSE LONDON MD Date:?12/21/2023 Generated for Joann mendoza/Geovany/eTransmitting on:?11/03/2024 08:33 PM BOT History and Physical Notes * HPI (History of Present Illness) Category Sub-Category Detail Notes Category Not es COVID-19 Screening Respiratory Illness Screening 1. Is fever present / reported?: No 2. Are respiratory illness symptom(s) pr esent / reported?: No 3. Are other symptom(s) present / report ed?: No 5. Has there been reported t ravel to a High Risk respiratory illness region?: No 6. Has close* contact with p erson(s) known to have communicable illness been reported?: No 7. Did travel or close conta ct (if applicable) occur within 14 days of symptom onset?: No [facility]fermera Metodo de Transporte Perez [facility] [employer]ado Acompanado por: HAYLEY Clasificacion Triage Urgencia Estado de animo Calmado Completado por: [id number]
--- OUTSIDE RECORDS SUMMARY | 2024-11-03 19:34 | XMS_ITS | Clinical Summary ---
Author Organization [employer] Address [address] [facility] 7[address] [place] [address] Care Team Providers Care Decal Applier Name Role Phone Francisca Vargas MD Primary Care Provider [phone] Allergies No known active allergies Medications * This document contains information received from the source organization and may not represent a complete record from that organization. acetaminophen (Tylenol) 500 MG tablet Take 2 tablets (1,000 mg) by mouth every 6 (six) hours if needed for moderate pain or fever for up to 25 doses. 40 tablet 3 Active ibuprofen 400 MG tablet Take 1 tablet (400 mg) by mouth every 6 (six) hours if needed for moderate pain or fever for up to 30 doses. 30 tablet 3 Active ketoconazole (NIZOral) 2 % cream Apply topically if needed each day for itching. 30 g 1 5 Active azithromycin (Zithromax Z-Vikram) 250 MG tabletIndicatio ns:Chronic cough Take 2 tabs po x 1 day then 1 tab po daily x 4 days 6 tablet 5 Active guaiFENesin (Robitussin) 100 MG/5ML liquidIndicatio ns:Chronic cough Take 10 mL (200 mg) by mouth if needed in the morning, at noon, and at bedtime for cough for up to 10 days. 120 mL 5 11/14/19 25 Active Active Problems Problem Noted Date Diagnosed Date Routine physical examination 11/03/2024 Assessment & Plan (11/03/2024 3:05 PM EST): Physical exam today , findings as Assessment and Plan For employment purposes pt has been cleared to work with no limitations . 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 Denies any active weezing but reports a Hx of asthma, although she has never been treated for it On today's exam no wheezing, no ronchi, no rales Rapid flu and Covid: negative. I suspect an acute bronchitis Plan: Chest x-ray, PFTs, rule out cough variant asthma Z-pack given c/o purulent phlegm, guaifenesin prn for cough. Pending PFTs might need a beta agonist Discharge from breast 11/03/2024 Assessment & Plan (11/03/2024 3:01 PM EST): Patient c/o bilateral nipple discharge for over 1 year. She reports that while living in [place] she had a breast US and was told everything was fine. On today's exam, pt is able to easily express a yellowish nipple discharge from both breasts, no blood. There are NO masses or associated skin changes. Plan: will initiate work up of galactorrhea with a Prolactin level, will obtain bilateral breast US and will refer to [facility]. Follow up with PCP after initial testing Depressed mood 11/03/2024 Assessment & Plan (11/03/2024 3:15 PM EST): Pt has been feeling depressed since she had an issue at a previous employment. Interesting in discussing with a clinician Irritability and anger 07/13/2024 Anxiety 07/13/2024 Acanthosis nigricans 09/14/2022 Assessment & Plan (11/03/2024 3:17 PM EST): Previously referred by PCP, apparently never heard back, referral placed again Tinea corporis 12/18/2018 Assessment & Plan (11/03/2024 3:17 PM EST): Previously referred by PCP, apparently never heard back, referral placed again Not improving with Nizoral prescribed by PCP Encounters * This document contains information received from the source organization and may not represent a complete record from that organization. Date Type Department Care Team Description 11/03/2024 2:30 PM EST Office Visit [facility] [address] [place] [phone] Mason Ruvalcaba MD Routine physical examination (Primary Dx); Chronic cough; Discharge from breast; Depressed mood; Acanthosis nigricans; Tinea corporis 11/03/[address] [address] Francisca Vargas MD Appointment Request 11/03/2024 Travel 11/02/[address] [address] Francisca Vargas MD Chart Prep 10/15/[address] [address] Nahomy Lakhani MA recall 09/15/[address] [address] Francisca Vargas MD Results 09/15/[address] [address] Francisca Vargas MD from Last 3 Months Immunizations Name Administration Dates Next Due HPV 9-Valent 06/14/2021 Influenza injectable quadriv alent preservative free 06/26/2018,07/26/2016 Influenza, seasonal, injecta ble, preservative free 07/10/2024 MMR 10/08/2016 Moderna Covid-19 Vaccine 12+ 04/27/2022,11/25/19 22,07/12/2021 Tdap 04/18/2018,07/26/2016 Family History Medical History Relation Name Comments Breast cancer Paternal Grandmother alive unknown age of onset Relation Name Status Comments Paternal Grandmother Social History Tobacco Use Types Packs/Day Years [...] Industry Job 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 Date Job 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 Date 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 f ile Not on file Last Filed Vital Signs Vital Sign Reading Time Taken Comments Blood Pressure 134/86 11/03/2024 2:37 PM EST Pulse 88 11/03/2024 2:37 PM EST Temperature 36.6 ??C (97.8 ??F) 11/03/2024 2:37 PM ES T Respiratory Rate 20 11/03/2024 2:37 PM EST Oxygen Saturation 97% 11/03/2024 2:37 PM EST Inhaled Oxygen Concentration - - Weight 80.2 kg (176 lb 12.8 oz) 11/03/2024 2:37 PM EST Height 165.1 cm (5' 5 ) 11/03/2024 2:37 PM EST Body Mass Index 29.42 11/03/2024 2:37 PM EST Plan of Treatment Upcoming Encounters Date Type Department Care Team (Late st Contact Info) Description 02/09/2025 2:30 PM EDT Office Visit [facility] [address] [place] [address] Bakari, Maria L, OD [address] [place] [address] Health Maintenance Due Date Last Done Comments Family Planning (PISQ) 02/22/2012 Hepatitis B Vaccines (1 of 3 - 19+ 3-dose series) 02/22/2016 HPV Vaccines (2 - 3-dose series) 07/12/2021 06/14/2021 Pap Smear 06/17/2023 06/17/2020, 06/17/2020 COVID-19 Vaccine (2023-2 5 season) 2024 04/27/2022, 11/24/2021, 07/12/2021 Depression Monitoring (PHQ-9) 01/07/2025, 07/10/2024 Depression Screening 07/10/2025 07/10/2024, 07/10/2024 Alcohol/Substance Use Screening 11/03/2025 11/03/2024 SDOH Screening 11/03/2025 11/03/2024 Tobacco Screening 11/03/2025 11/03/2024 DTaP/Tdap/Td Vaccines (3 - T d or Tdap) 04/18/2028 04/18/2018, 07/26/2016 Zoster Vaccines (1 of 2) 2047 RSV Patients and Patients Aged 60 years or older (1 - 1-dose 75+ series) 02/22/2072 HIV Screening Completed 07/10/2024, 06/16/2020 Hepatitis C Screening Completed 07/10/2024 , 06/16/2020 Influenza Vaccine Completed 07/10/2024, 06/26/2018, 07/26/2016 HIB Vaccines Aged Out No longer eligi ble based on patient's age to complete this topic Hepatitis A Vaccines Aged Out No long er eligible based on patient's age to complete this topic IPV Vaccines Aged Out No longer eligi ble based on patient's age to complete this topic Meningococcal Vaccine Aged Out No jassi luis eligible based on patient's age to complete this topic Pneumococcal Vaccine: Pediatrics (0 to 5 Years) and At-Risk Patients (6 to 49) Years) Aged Out No longer eligible b ased on patient's age to complete this topic RSV under 20 months Aged Out No longe r eligible based on patient's age to complete this topic Rotavirus Vaccines Aged Out No longer eligible based on patient's age to complete this topic Procedures Procedure Name Priority Date/Time Associated Diagnosis Comments TSH W/REFLEX TO FT4 Routine 11/03/2024 3 :55 PM EST Discharge from breast POCT INFLUENZA B (ID NOW RAPID MOLECULAR) Routine 11/03/2024 3:08 PM EST Chronic cough POCT INFLUENZA A (ID NOW RAPID MOLECULAR) Routine 11/03/2024 3:08 PM EST Chronic cough POCT RAPID COVID ANTIGEN Routine 11/03/2024 3:02 PM EST Chronic cough HEPATITIS C AB W/REFL TO HCV RNA, QN, PCR Routine 07/10/2024 12:00 AM EDT Routine screening for STI (sexually transmitted infection) HIV 1/2 ANTIGEN/ANTIBODY, FOURTH GENERATION W/RFL Routine 07/10/2024 12:00 AM EDT Routine screening for STI (sexually transmitted infection) HM PAP/HPV Routine 06/17/2020 from Last 3 Months or Most Recently Relevant to Health Maintenance Results * TSH with Reflex to Free T4 (11/03/2024 3:55 PM EST) TSH reflex Free T4 2.88 0.32 - 4.0 uIU/mL [facility] Blood Venous blood specimen / Unknown 11/03/2024 3:55 PM EST 11/03/2024 6:03 PM EST Mason Garcia MD LAB BLOOD ORDERABLES Final Result Performing Organization Address City/[facility]/ZIP Co de Phone Number [facility] [address] [place] [phone] * POCT Rapid Influenza B CEE ID NOW (11/03/2024 3:08 PM EST) Pathologist [facility] Influenza B Negative Negative, Indeterminate [facility] QC Media Lot # [id number] [facility] Lot# Expiration Date , [facility] Swab 11/03/2024 3:08 PM EST Mason Garcia MD POINT OF CARE TEST EN TER/EDIT ORDERABLES Final Result Performing Organization Address City/[facility]/ZIP Co de Phone Number [facility] [address] [place] [phone] * POCT Rapid Influenza A CEE ID NOW (11/03/2024 3:08 PM EST) [facility] Influenza A Negative Negative, Indeterminate [facility] QC Media Lot # [id number] [facility] Lot# Expiration Date [facility] Swab 11/03/2024 3:08 PM EST Mason Garcia MD POINT OF CARE TEST EN TER/EDIT ORDERABLES Final Result [facility] [address] [place] [phone] * POCT Rapid Covid-19 BinaxNOW (11/03/2024 3:02 PM EST) [facility] Rapid COVID Ag Negative QC Media Lot # [id number] Lot# Expiration Date Swab 11/03/2024 3:02 PM EST Mason Garcia MD POINT OF CARE TEST EN TER/EDIT ORDERABLES Final Result * Hepatitis C Antibody with Reflex to HCV, RNA, Quantitative, Real-Time PCR (07/10/2024 12:00 AM EDT) [facility] Hepatitis C Antibody Nonreactive Nonreactive [facility] Comment:Antibodies to HCV no t detected; does not exclude early acuteHCV infection. Blood Venous blood specimen / Unknown 07/10/2024 07/10/2024 Francisca Vargas MD LAB BLOOD ORDERABLES Final Res ult Performing Organization Address [facility]/ZIP Co de Phone Number [facility] [address] [place] [phone] * HIV-1/2 Antigen and Antibodies, Fourth Generation, with Reflexes (07/10/2024 12:00 AM EDT) [facility] HIV AB/AG Nonreactive Nonreactive [facility] Comment:HIV-1 p24 Ag and/or HIV-1/HIV-2 Ab not detected.A test result that is nonreactive does not exclude thepossibility of exposure to or infection with HIV-1 and/orHIV-2. Nonreactive results in this assay for individualswith prior exposure to HIV-1 and/or HIV-2 may be due toantigen and antibody levels that are below the limit ofdetection of this assay.The [employer] HIV Ag/Ab Combo assay result andsupplemental assay results should be interpreted inconjunction with the patient's clinical presentation,history and other laboratory results. If the results areinconsistent with clinical evidence, additional testing issuggested to confirm the result. Blood Venous blood specimen / Unknown 07/10/2024 07/10/2024 Francisca Vargas MD LAB BLOOD ORDERABLES Final Res ult [facility] [address] [place] [phone] [phone] * Hm Pap Smear (06/17/2020) Historical Provider HEALTH MAINTENANCE Final Result from Last 3 Months or Most Recently Relevant to Health Maintenance Insurance [facility] Care Teams Decal Applier Relationship Specialty Start Date End Date Francisca Vargas MD [address] [place] [address] PCP - General Family Medicine 11/08/22
--- OUTSIDE RECORDS SUMMARY | 2024-11-03 19:34 | XMS_ITS ---
Author Organization [facility] Address [address] [place] [address] Care Team Providers Care Ad Writer Name Role Phone GUS GARCIA [phone] REASON FOR VISIT DUPLICADO Social History Sex Assigned At : Social History Observation Description Sex Assigned At Female Encounters Encounter Location Date Provider Diagnosis [facility] [address] [facility] [place] [address] 07/16/2023 GUS GARCIA Plan Of Treatment No Information Progress Notes * LEV PORTILLO NDOB:1995 (28 yo F)Acc No.[id number]:07/16/2023 Patient:?BRANDON SALGADOPOP Provider:?GUS GRIFFIN MD :1995???Age:28 Y???Sex:Female D ate:07/16/2023 [facility] [place] Structured Data:Chandler : No Subjective: * Chief Complaints: * ???1. DUPLICADO. * Medical History:? Objective: Assessment: Plan: * Treatment: * Billing Information: * Visit Code:? * Procedure Codes:? * Sign off status: Completed true * Provider:?GUS GRIFFIN MD Date :?07/16/2023 Generated for Joann mendoza/Geovany/Alice on:?11/03/2024 08:33 PM BOT
--- OUTSIDE RECORDS SUMMARY | 2024-11-03 19:34 | XMS_ITS | Encounter Summary ---
Author Organization [employer] Address [address] [facility] 7t [place] [address] Care Team Providers Care Rehabilitation Teacher Name Role Phone Francisca Vargas MD Primary Care Provider [phone] Reason for Visit * Reason Onset Date Comments Chart Prep 11/02/2024 Encounter Details Date Type Department Care Team ([facility] st Contact Info) Description 11/02/2024 Telephone [facility] [address] [place], [place] [phone] Francisca Vargas MD [address] [place], [place] [phone] Chart Prep Social History Tobacco Use Types Packs/Day Years [...] Industry Job 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 A gown will be reccommended to where since a breast exam may or may not be conducted at the time of visit; wanted to inform pt in case they would've liked to r/s. All these visits are chaperoned by JAY. Labs: not applicable Images: not applicable Vaccines due: Covid Due and Hep B Due Referrals: Not Applicable Screenings: PAP Overdue care gaps: Sbirt, SDOH, PHQ-9, and Oral Health Chart prep for upcoming appt with complete. LB documented in this encounter Plan of Treatment Upcoming Encounters Date Type Department Care Team (Late st Contact Info) Description 02/09/2025 2:30 PM EDT Office Visit [facility] [address] [place] [address] Bakari, Maria L, OD [address] [place] [address] documented as of this encounter Visit Diagnoses Not on filedocumented in this encounter Additional Health Concerns Assessment Noted Time PHQ-9 Depression Total Score: 17 024 2:58 PM EDT documented as of this encounter Care Teams Rehabilitation Teacher Relationship Specialty Start Date End Date Francisca Vargas MD [address] [place] [address] PCP - General Family Medicine 11/08/22 documented as of this encounter
[2024-11-04 06:49] LABS: Prolactin 12.7 ng/mL
== END 2024-11-03 15:54 | disposition home or self-care (01) ==
LOC: HO.HHCL 15:53
PROVIDERS: Visit Provider Internal Medicine
DX: N64.52 Nipple discharge (principal)
CPT/HCPCS: 36415; 84146; 84443

== ENCOUNTER 2024-11-04 08:51 | Outpatient (REF) | payer MEDICAID, SELFPAY ==
--- NOTE | ~2024-11-04 | XR_ITS ---
EXAMINATION: XR CHEST 2 VIEWS HISTORY: cough COMPARISON: There are no prior studies for comparison. FINDINGS: PA and lateral views of the chest are submitted. The lungs are expanded and clear. There is no pleural effusion, pneumothorax, or pulmonary vascular congestion. The heart is normal in size. The bones are intact. XR/XR chest 2V IMPRESSION: Normal examination of the chest. Electronically signed by: Pollo Burns MD 11/04/2024 01:08 PM [facility]
--- OUTSIDE RECORDS SUMMARY | 2024-11-04 09:39 | XMS_ITS | Encounter Summary ---
Author Organization [employer] Address [address] [facility] [address] [place] [address] Care Team Providers Care Technology Recruiter Name Role Phone Francisca Vargas MD Primary Care Provider [phone] Reason for Visit * Reason Onset Date Comments Appointment Request 11/03/2024 Encounter Details Date Type Department Care Team ([facility] st Contact Info) Description 11/03/2024 Telephone [facility] [address] [place], [place] [phone] Francisca Vargas MD [address] [place], [place] [phone] Appointment Request Social History Tobacco Use Types [...] Industry Job Start Date Job End Date 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 on file Not on f ile [...] Description 02/09/2025 2:30 PM EDT Office Visit [facility] OPT[facility] [address] [place], [place] [phone] BakariMaria L, OD [address] [place] [address] documented as of this encounter Visit Diagnoses Not on filedocumented in this encounter Additional Health Concerns Assessment Noted Time PHQ-9 Depression Total Score: 17 024 2:58 PM EDT documented as of this encounter Care Teams Technology Recruiter Relationship Specialty Start Date End Date Francisca Vargas MD [address] [place] [address] PCP - General Family Medicine 11/08/22 documented as of this encounter
--- OUTSIDE RECORDS SUMMARY | 2024-11-04 09:39 | XMS_ITS | Encounter Summary ---
Author Organization [employer] Address [address] [facility] [address] [place] [address] Care Team Providers Care Engravings Polisher Name Role Phone Francisca Vargas MD Primary Care Provider [phone] Reason for Visit * Reason Onset Date Comments Nurse Triage 04/11/2023 Encounter Details Date Type Department Care Team ([facility] st Contact Info) Description 04/11/2023 Telephone [facility] MEDICINE [address] [place], [place] [phone] Francisca Vargas MD 230 [place], [place] [phone] Nurse Triage Social History Tobacco Use Types [...] Industry Job Start Date Job End Date 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 Protocol Used: No Contact [...] The caller accepted this outcome Patient speaks setswana documented in this encounter Plan of Treatment Upcoming Encounters Date Type Department Care Team ([facility] st Contact Info) Description 02/09/2025 2:30 PM EDT Office Visit [facility] [address] [place] [address] Maria L Villegas, OD 230 [place], [place] [phone] documented as of this encounter Visit Diagnoses Not on filedocumented in this encounter Additional Health Concerns Assessment Noted Time PHQ-9 Depression Total Score: 7 09/14/19 23 2:03 PM EST documented as of this encounter Care Teams Engravings Polisher Relationship Specialty Start Date End Date Francisca Vargas MD [address] [place] [address] PCP - General Family Medicine 11/08/22 documented as of this encounter
--- OUTSIDE RECORDS SUMMARY | 2024-11-04 09:39 | XMS_ITS | Encounter Summary ---
Author Organization [email or web address] Address [address] [facility] [address] [place] [address] Care Team Providers Care Intelligence Engineer Name Role Phone Francisca Vargas MD Primary Care Provider [phone] Reason for Referral * Consultation (Routine) - Pending Review Specialty Diagnoses / Procedures Referred By Perfecto dean Referred To Contact Dermatology / Family Medicine Diagnoses Acanthosis nigricans Tinea corporis Mason Ruvalcaba MD [address] [place] [address] Phone: tel: fax: Anabela Walton MD [address] [place] [phone] Phone: tel: fax: Referral ID Status Reason Start Date Expiration Date Visits Requested Visits Authorized [id number] Pending Review Consult and Treat 11/03/2024 11/03/2025 1 1 * Consultation (Routine) - Pending Review Specialty Diagnoses / Procedures Referred By Perfecto dean Referred To Contact Breast Surgery Diagnoses Discharge from breast Mason Ruvalcaba MD [address] [place] [address] Phone: tel: fax: Referral ID Status Reason Start Date Expiration Date Visits Requested Visits Authorized [id number] Pending Review Specialty Services Required 11/03/2024 11/03/2025 1 1 * Imaging (Routine) - Pending Review Specialty Diagnoses / Procedures Referred By Contac t Referred To Contact Radiology Diagnoses Discharge from breast Procedures BI US Breast Complete Left Mason Ruvalcaba MD [address] [place] [address] Phone: tel: fax: [address] Phone: tel: fax: Referral ID Status Reason Start Date Expiration Date V isits Requested Visits Authorized [id number] Pending Review 11/03/2024 11/03/2025 1 1 * Imaging (Routine) - Pending Review Specialty Diagnoses / Procedures Referred By Contac t Referred To Contact Radiology Diagnoses Discharge from breast Procedures BI US Breast Complete Right Mason Ruvalcaba MD [address] [place] [address] Phone: tel: fax: [address] Phone: tel: fax: Referral ID Status Reason Start Date Expiration Date V isits Requested Visits Authorized [id number] Pending Review 11/03/2024 11/03/2025 1 1 Reason for Visit * Reason Comments Annual Exam Encounter Details Date Type Department Care Team (Late st Contact Info) Description 11/03/2024 2:30 PM EST Office Visit [facility] MEDICINE 230 [place], [place] [phone] Mason Ruvalcaba MD [address] [place], [place] [phone] Routine physical examination (Primary Dx); Chronic cough; [...] Industry Job Start Date Job End Date 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 She reports that while living in [place] she had a breast US and was told everything was fine. On today's exam, pt is able to easily express a yellowish nipple discharge from both breasts, no blood. There are NO masses or associated skin changes. Plan: will initiate work up of galactorrhea with a Prolactin level, will obtain bilateral breast USand will [place] [facility] [place] [facility] Follow up with PCP after initial testing [...] referral placed again Relevant Orders Referral to [facility] Derm Skin Tinea corporis Previously referred by PCP, apparently never heard back, referral placed again Not improving with Nizoral prescribed by PCP Relevant Orders Referral to [facility] Derm Skin documented in this encounter Miscellaneous [...] . 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 She reports that while living in [place] she had a breast US and was told everything was fine. On today's exam, pt is able to easily express a yellowish nipple discharge from both breasts, no blood. There are NO masses or associated skin changes. Plan: will initiate work up of galactorrhea with a Prolactin level, will obtain bilateral breast USand will refer to the [facility] Follow up with PCP after initial testing documented in this encounter Plan of Treatment Upcoming Encounters Date Type Department Care Team (Late st Contact Info) Description 02/09/2025 2:30 PM EDT Office Visit [facility] OPTOMETRY [address] [place], [place] [phone] Maria L Villegas, OD [address] [place], [place] [phone] Scheduled Orders Name Type Priority Associated Diagnoses Orde r Schedule BI US Breast Complete Right Imaging Routine Discharge from breast Ordered: 11/03/2024 BI US Breast Complete Left Imaging Routine Discharge from breast Expected: 11/03/2024, Expires: 01/01/2026 XR Chest 2 Views Imaging Routine Chronic cough Ordered: 11/03/2024 Scheduled Referrals Name Type Priority Associated Diagnoses Orde r Schedule Referral to Breast Clinic Outpatient Referral Routine Discharge from breast Expected: 11/03/2024 (Approximate), Expires: 11/03/2025 Referral to [facility] Derm Skin Outpatient Referral Routine Acanthosis nigricans Tinea corporis Expected: 11/03/2024 (Approximate), Expires: 11/03/2025 documented as of this encounter Procedures Procedure Name Priority Date/Time Associated Diagnosis Comments TSH W/REFLEX TO FT4 Routine 11/03/2024 3 :55 PM EST Discharge from breast PROLACTIN Routine 11/03/2024 3:55 PM EST Discharge from breast POCT INFLUENZA [...] Free T4 2.88 0.32 - 4.0 uIU/mL [facility] Blood Venous blood specimen / Unknown 11/03/2024 3:55 PM EST 11/03/2024 6:03 PM EST us Mason Garcia MD LAB BLOOD ORDERABLES Final Result [facility] [address] [place] [phone] * Prolactin (11/03/2024 3:55 PM EST) Pathologist [facility] Prolactin 12.7 ng/mL [facility] Comment:Reference Range Fema les Non- 3.0-30.0 10.0-209.0 Postmenopausal 2.0-20.0THIS TEST WAS PERFORMED AT:[facility] [place] [id number] YANG MD Blood Venous blood specimen / Unknown 11/03/2024 3:55 PM EST 11/03/2024 6:03 PM EST Mason Garcia MD LAB BLOOD ORDERABLES Final Result Performing Organization Address [facility]/ZIP Co de Phone Number [facility] [address] [place] [phone] * POCT Rapid Influenza B CEE ID NOW (11/03/2024 3:08 PM EST) [facility] Influenza B Negative Negative, Indeterminate [facility] QC Media Lot # [id number] [facility] Lot# Expiration Date [facility] Swab 11/03/2024 3:08 PM EST us Mason Garcia MD POINT OF CARE TEST EN TER/EDIT ORDERABLES Final Result Performing Organization Address City/[facility]/ZIP Co de Phone Number [facility] [address] [place] [phone] * POCT Rapid Influenza A CEE ID NOW (11/03/2024 3:08 PM EST) [facility] Influenza A Negative Negative, Indeterminate [facility] QC Media Lot # [id number] [facility] Lot# Expiration Date [facility] Swab 11/03/2024 3:08 PM EST Mason Garcia MD POINT OF CARE TEST EN TER/EDIT ORDERABLES Final Result [facility] [address] [place] [phone] * POCT Rapid Covid-19 BinaxNOW (11/03/2024 3:02 PM EST) Rapid COVID Ag Negative QC Media Lot # [id number] Lot# Expiration Date Swab 11/03/2024 3:02 PM [...] documented as of this encounter Care Teams Intelligence Engineer Relationship Specialty Start Date End Date Francisca Vargas MD [address] [place] [address] PCP - General Family Medicine 11/08/22 documented as of this encounter
--- OUTSIDE RECORDS SUMMARY | 2024-11-04 09:39 | XMS_ITS | Encounter Summary ---
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 on f ile Not on file documented as of this encounter Plan of Treatment Upcoming Encounters Date Type Department Care Team (Late st Contact Info) Description 02/09/2025 2:30 PM EDT Office Visit [facility] OPTOMETRY [address] [place], [place] [phone] BakariMaria L pedro, OD [address] [place] [address] documented as of this encounter Procedures Procedure [...] documented as of this encounter Care Teams Transportation Agent Relationship Specialty Start Date End Date Francisca Vargas MD 230 [place], [place] [phone] PCP - General Family Medicine 11/08/22 documented as of this encounter
--- OUTSIDE RECORDS SUMMARY | 2024-11-04 09:39 | XMS_ITS | Encounter Summary ---
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 on f ile Not on file documented as of this encounter Plan of Treatment Upcoming Encounters Date Type Department Care Team (Late st Contact Info) Description 02/09/2025 2:30 PM EDT Office Visit [facility] OPTOMETRY [address] [place] [address] Bakari, Maria L, OD [address] [place], [place] [phone] documented as of this encounter Visit Diagnoses Not on filedocumented in this encounter Additional Health Concerns Assessment Noted Time PHQ-9 Depression Total Score: 17 024 2:58 PM EDT documented as of this encounter Care Teams Conveyor Attendant Relationship Specialty Start Date End Date Francisca Vargas MD 230 [place] [address] PCP - General Family Medicine 11/08/22 documented as of this encounter
--- OUTSIDE RECORDS SUMMARY | 2024-11-04 09:40 | XMS_ITS | Encounter Summary ---
Author Organization [employer] Address [address] [facility] [address] [place] [address] Care Team Providers Care Behavioral Health Case Manager Name Role Phone Francisca Vargas MD Primary Care Provider Reason for Visit * Reason Onset Date Comments Chart Prep 11/02/2024 Encounter Details Date Type Department Care Team ([facility] st Contact Info) Description 11/02/2024 Telephone [facility] MEDICINE [address] [place], [place] [phone] Francisca Vargas MD [address] [place], [place] [phone] Chart Prep Social History Tobacco Use Types [...] Industry Job Start Date Job End Date 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
--- OUTSIDE RECORDS SUMMARY | 2024-11-04 09:40 | XMS_ITS | Clinical Summary ---
Author Organization [employer] Address [address] [facility] 7t [place] [address] Care Team Providers Care Final Block Press Operator Name Role Phone Francisca Vargas MD Primary Care Provider [phone] Allergies No known active allergies Medications * [...] . 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 She reports that while living in [place] she had a breast US and was told everything was fine. On today's exam, pt is able to easily express a yellowish nipple discharge from both breasts, no blood. There are NO masses or associated skin changes. Plan: will initiate work up of galactorrhea with a Prolactin level, will obtain bilateral breast US and will refer to the [facility]. Follow up with PCP after initial testing [...] 2:30 PM EST Office Visit [facility] MEDICINE [address] [place] [phone] Mason Ruvalcaba MD Routine physical examination (Primary Dx); Chronic cough; Discharge from breast; Depressed mood; Acanthosis nigricans; Tinea corporis 11/03/[address] [address] Francisca Vargas MD Appointment Request 11/03/2024 Travel 11/02/[address] [address] Francisca Vargas MD Chart Prep 10/15/[address] [address] Nahomy Lakhani [place] recall 09/15/[address] [address] Francisca Vargas MD Results 09/15/[address] [address] Francisca Vargas MD from Last 3 Months [...] Industry Job Start Date Job End Date 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 Not on f ile [...] 2:30 PM EDT Office Visit [facility] OPTOMETRY [address] [place] [address] Bakari, Maria L, OD [address] [place] [address] Health Maintenance Due Date Last Done Comments [...] Procedure Name Priority Date/Time Associated Diagnosis Comments PROLACTIN Routine 11/03/2024 3:55 PM EST Discharge from breast TSH W/REFLEX TO FT4 Routine 11/03/2024 3 [...] Free T4 2.88 0.32 - 4.0 uIU/mL [facility] Blood Venous blood specimen / Unknown 11/03/2024 3:55 PM EST 11/03/2024 6:03 PM EST Mason Garcia MD LAB BLOOD ORDERABLES Final Result [facility] [address] [place] [phone] * Prolactin (11/03/2024 3:55 PM EST) Prolactin 12.7 ng/mL [facility] Comment:Reference Range Fema les Non- 3.0-30.0 10.0-209.0 Postmenopausal 2.0-20.0THIS TEST WAS PERFORMED AT:[facility] [address] [phone] YANG MD Blood Venous blood specimen / Unknown 11/03/2024 3:55 PM EST 11/03/2024 6:03 PM EST Mason Garcia MD LAB BLOOD ORDERABLES Final Result Performing Organization Address [facility] [place]/[facility] Co de Phone Number [facility] [address] [place] [phone] * POCT Rapid Influenza B CEE ID NOW (11/03/2024 3:08 PM EST) Influenza B Negative Negative, Indeterminate [facility] QC Media Lot # [id number] [facility] Lot# Expiration Date [facility] Swab 11/03/2024 3:08 PM EST Mason Garcia MD POINT OF CARE TEST EN TER/EDIT ORDERABLES Final Result Performing Organization Address [facility] [place]/[facility] Co de Phone Number [facility] [address] [place] [phone] * POCT Rapid Influenza A CEE ID NOW (11/03/2024 3:08 PM EST) Influenza A Negative Negative, Indeterminate [facility] QC Media Lot # [id number] [facility] Lot# Expiration Date [facility] Swab 11/03/2024 3:08 PM EST Mason Garcia MD POINT OF CARE TEST EN TER/EDIT ORDERABLES Final Result Performing Organization Address [facility] [place]/[facility] Co de Phone Number [facility] [address] [place] [phone] * POCT Rapid Covid-19 BinaxNOW (11/03/2024 3:02 PM EST) Rapid COVID Ag Negative QC Media Lot # [id number] Lot# Expiration Date Swab 11/03/2024 3:02 PM EST Mason Garcia MD POINT OF CARE TEST EN TER/EDIT ORDERABLES Final Result * Hepatitis C Antibody with Reflex to HCV, RNA, Quantitative, Real-Time PCR (07/10/2024 12:00 AM EDT) Pathologist [facility] Hepatitis C Antibody Nonreactive Nonreactive [facility] Comment:Antibodies to HCV no t detected; does not exclude early acuteHCV infection. Blood Venous blood specimen / Unknown 07/10/2024 07/10/2024 Result [facility] Francisca Vargas MD LAB BLOOD ORDERABLES Final Res ult Performing Organization Address [facility] [place]/[facility] Co de Phone Number [facility] [address] [place] [phone] * HIV-1/2 Antigen and Antibodies, Fourth Generation, with Reflexes (07/10/2024 12:00 AM EDT) Pathologist [facility] HIV AB/AG Nonreactive Nonreactive [facility] Comment:HIV-1 p24 Ag and/or HIV-1/HIV-2 Ab not detected.A test result that is nonreactive does not exclude thepossibility of exposure to or infection with HIV-1 and/orHIV-2. Nonreactive results in this assay for individualswith prior exposure to HIV-1 and/or HIV-2 may be due toantigen and antibody levels that are below the limit ofdetection of this assay.The OpenfolioniF2G HIV Ag/Ab Combo assay result andsupplemental assay results should be interpreted inconjunction with the patient's clinical presentation,history and other laboratory results. If the results areinconsistent with clinical evidence, additional testing issuggested to confirm the result. Blood Venous blood specimen / Unknown 07/10/2024 07/10/2024 Result [facility] Francisca Vargas MD LAB BLOOD ORDERABLES Final Res ult Performing Organization Address [facility] [place]/[facility]/ZIP Co de Phone Number [facility] [address] [place] [phone] * Hm Pap Smear (06/17/2020) us Historical Provider HEALTH MAINTENANCE Final Result from Last 3 Months or Most Recently Relevant to Health Maintenance Insurance [facility] Care Teams Final Block Press Operator Relationship Specialty Start Date End Date Francisca Vargas MD [address] [place] [address] PCP - General Family Medicine 11/08/22
--- OUTSIDE RECORDS SUMMARY | 2024-11-04 09:40 | XMS_ITS | Encounter Summary ---
Author Organization [employer] Address [address] [facility] 7t [place] [address] Care Team Providers Care Supervisor Hand Silvering Name Role Phone Francisca Vargas MD Primary Care Provider [phone] Reason for Visit * Reason Onset Date Comments recall 10/15/2024 Encounter Details Date Type Department Care Team ([facility] st Contact Info) Description 10/15/[address] 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 OPTOMETRY [address] [place], [place] [phone] Maria L Villegas, OD [address] [place] [address] documented as of this encounter Visit Diagnoses Not on filedocumented in this encounter Additional Health Concerns Assessment Noted Time PHQ-9 Depression Total Score: 17 024 2:58 PM EDT documented as of this encounter Care Teams Supervisor Hand Silvering Relationship Specialty Start Date End Date Francisca Vargas MD [address] [place] [address] PCP - General Family Medicine 11/08/22 documented as of this encounter
== END 2024-11-04 08:52 | disposition home or self-care (01) ==
LOC: HO.XRAY 08:51
PROVIDERS: PCP Internal Medicine; Visit Provider Internal Medicine
DX: R05.3 Chronic cough (principal)
CPT/HCPCS: 71046

== ENCOUNTER → 2024-11-04 09:01 | Outpatient (BNV) | payer MEDICAID, SELFPAY | PROVIDERS: PCP Internal Medicine; Visit Provider Radiology Diagnostic Radiology | DX: R05.9 Cough, unspecified (principal) | CPT/HCPCS: 71046 ==

== ENCOUNTER 2024-11-05 12:56 | Outpatient (REF) | payer MEDICAID, SELFPAY ==
--- OUTSIDE RECORDS SUMMARY | 2024-11-05 15:23 | XMS_ITS | Encounter Summary ---
Author Organization [employer] Address [address] [facility] 7t [place] [address] Care Team Providers Care Dinker Name Role Phone Francisca Vargas MD Primary Care Provider [phone] Reason for Referral * Consultation (Routine) - Pending Review Specialty Diagnoses / Procedures Referred By Perfecto dean Referred To Contact Dermatology / Family Medicine Diagnoses Acanthosis nigricans Tinea corporis Mason Ruvalcaba MD [address] [place] [address] Phone: tel: fax: Anabela Walton MD [address] [place] [address] Phone: tel: fax: Referral ID Status Reason Start Date Expiration Date Visits Requested Visits Authorized [id number] Pending Review Consult and Treat 11/03/2024 11/03/2025 1 1 * Consultation (Routine) - Authorized Specialty Diagnoses / Procedures Referred By Perfecto dean Referred To Contact Breast Surgery Diagnoses Discharge from breast Mason Ruvalcaba MD [address] [place] [address] Phone: tel: fax: [facility] [address] [place] [address] 3rd Floor [address] [place] [address] Phone: tel: fax: Referral ID Status Reason Start Date Expiration Date Visits Requested Visits Authorized [id number] Authorized Specialty Services Required 11/04/2024 11/04/2025 12 12 * Imaging (Routine) - Pending Review Specialty Diagnoses / Procedures Referred By Contac t Referred To Contact Radiology Diagnoses Discharge from breast Procedures BI US Breast Complete Left Mason Ruvalcaba MD [address] [place] [address] Phone: tel: fax: [address] Phone: tel: fax: Referral ID Status Reason Start Date Expiration Date V isits Requested Visits Authorized [id number] Pending Review 11/03/2024 11/03/2025 1 1 * Imaging (Routine) - Pending Review Specialty Diagnoses / Procedures Referred By Contac t Referred To Contact Radiology Diagnoses Discharge from breast Procedures BI US Breast Complete Right Mason Ruvalcaba MD [address] [place] [address] Phone: tel: fax: [address] Phone: tel: fax: Referral ID Status Reason Start Date Expiration Date V isits Requested Visits Authorized [id number] Pending Review 11/03/2024 11/03/2025 1 1 Reason for Visit * Reason Comments Annual Exam Encounter Details Date Type Department Care Team (Late st Contact Info) Description 11/03/2024 2:30 PM EST Office Visit [facility] [address] [place] [address] Mason Ruvalcaba MD [address] [place], [place] [phone] Routine physical examination (Primary Dx); Chronic cough; [...] Date 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 * Assessment & Plan Note - Mason [...] Description 02/09/2025 2:30 PM EDT Office Visit [facility] OPTOMETRY [address] [place] [address] Maria L Villegas OD [address] [place] [address] Scheduled Orders Name Type Priority Associated Diagnoses Orde r Schedule BI US Breast Complete Right Imaging Routine Discharge from breast Ordered: 11/03/2024 BI US Breast Complete Left Imaging Routine Discharge from breast Expected: 11/03/2024, Expires: 01/01/2026 Scheduled Referrals Name Type Priority Associated Diagnoses Orde r Schedule Referral to Breast Clinic Outpatient Referral Routine Discharge from breast Expected: 11/03/2024 (Approximate), Expires: 11/03/2025 Referral to [facility] Derm Skin Outpatient Referral Routine Acanthosis nigricans Tinea corporis Expected: 11/03/2024 (Approximate), Expires: 11/03/2025 documented as of this encounter Procedures Procedure Name Priority Date/Time Associated Diagnosis Comments XR CHEST 2 VIEWS Routine 11/04/2024 9:01 AM EST Chronic cough TSH W/REFLEX TO FT4 Routine 11/03/2024 3 [...] cough documented in this encounter Results * XR Chest 2 Views (11/04/2024 9:01 AM EST) Anatomical Region Laterality Modality Chest Radiographic Chica ging 11/04/2024 9:01 AM EST Narrative 11/04/2024 1:11 PM EST ? [facility] ?[address] ?[place] [address] ?XRay Report ? Signed ? Patient: Duran Reyes,Yamilivett ?MR#: [id number] ?? [id number] ? : 1995 ?Acct:[id number] ? Age/Sex: 29 / F ?ADM Date: 11/04/24 ? Loc: HO.XRAY ? Attending Dr: Mason Sam MD ? Ordering Physician: Mason Sam MD ?? Date of Service: 11/04/24 ?? Procedure(s): XR chest 2V ?? Accession Number(s): [id number] ? cc: Mason Sam MD ? EXAMINATION: ??XR CHEST 2 VIEWS ? HISTORY: cough ? COMPARISON: There are no prior studies for comparison. ? FINDINGS: ??PA and lateral views of the chest are submitted. The lungs ?? are expanded and clear. ??There is no pleural effusion, pneumothorax, or ?? pulmonary vascular congestion. ??The heart is normal in size. ??The bones ?? are intact. ? XR/XR chest 2V ?? IMPRESSION: ?? Normal examination of the chest. ? Electronically signed by: ??Pollo Burns MD ??11/04/2024 01:08 PM EST ?? RP ? Dictated By: ?Pollo Burns MD ? Signed By: ?<Electronically signed by Pollo Burns MD in OV> ?11/04/24 1308 ? DD/ 0901 ? TD/TT: 11/04/24 0913 ? Table Assembler Metal: ? Procedure Note Rowdy, Image - 11/04/2024 [place] [address] XRay Report Signed Patient: Anna BarclayMR#: [id number] : 1995Acct:[id number] Age/Sex: 29 / FADM Date: 11/04/24 Loc: [facility] Attending Dr: Mason Sam MD Ordering Physician: Mason Sam MD Date of Service: 11/04/24 Procedure(s): XR chest 2V Accession Number(s): [id number] cc: Mason Sam MD EXAMINATION: XR CHEST 2 VIEWS HISTORY: cough COMPARISON: There are no prior studies for comparison. FINDINGS: PA and lateral views of the chest are submitted. The lungs are expanded and clear. There is no pleural effusion, pneumothorax, or pulmonary vascular congestion. The heart is normal in size. The bones are intact. XR/XR chest 2V IMPRESSION: Normal examination of the chest. Electronically signed by: Pollo Burns MD 11/04/2024 01:08 PM EST RP Dictated By: Pollo Burns MD Signed By: <Electronically signed by Pollo Burns MD in OV> 11/04/24 1308 DD/ 0901 TD/TT: 11/04/24 0913 Table Assembler Metal: Mason Garcia MD IMG XR PROCEDURES Fin al Result * TSH with Reflex to Free T4 (11/03/2024 3:55 PM EST) TSH reflex Free T4 2.88 0.32 - 4.0 uIU/mL [facility] Blood Venous blood specimen / Unknown 11/03/2024 3:55 PM EST 11/03/2024 6:03 PM EST Mason [place] MD LAB BLOOD ORDERABLES Final Result [facility] [address] [place] [phone] * Prolactin (11/03/2024 3:55 PM EST) Prolactin 12.7 ng/mL [facility] Comment:Reference Range Fema les Non- 3.0-30.0 10.0-209.0 Postmenopausal 2.0-20.0THIS TEST WAS PERFORMED AT:[employer] [place] [phone] YANG MD Blood Venous blood specimen / Unknown 11/03/2024 3:55 PM EST 11/03/2024 6:03 PM EST Mason Garcia MD LAB BLOOD ORDERABLES Final Result Performing Organization Address [facility]/ZIP Co de Phone Number [facility] [address] [place] [phone] * POCT Rapid Influenza B CEE ID NOW (11/03/2024 3:08 PM EST) Influenza B Negative Negative, Indeterminate [facility] QC Media Lot # [id number] [facility] Lot# Expiration Date [facility] Swab 11/03/2024 3:08 PM EST Mason Garcia MD POINT OF CARE TEST EN TER/EDIT ORDERABLES Final Result Performing Organization Address [facility]/[facility] Co de Phone Number [facility] [address] [place] [phone] * POCT Rapid Influenza A CEE ID NOW (11/03/2024 3:08 PM EST) Influenza A Negative Negative, Indeterminate [facility] QC Media Lot # [id number] [facility] Lot# Expiration Date [facility] Swab 11/03/2024 3:08 PM EST Mason Garcia MD POINT OF CARE TEST EN TER/EDIT ORDERABLES Final Result Performing Organization Address [facility]/ZIP Co de Phone Number [facility] [address] [place] [phone] * POCT Rapid Covid-19 BinaxNOW (11/03/2024 3:02 PM EST) Rapid COVID Ag Negative QC Media Lot # [id number] Lot# Expiration Date Swab 11/03/2024 3:02 PM EST us Mason Garcia MD POINT [...] documented as of this encounter Care Teams Dinker Relationship Specialty Start Date End Date Francisca Vargas MD [address] [place] [address] PCP - General Family Medicine 11/08/22 documented as of this encounter
--- OUTSIDE RECORDS SUMMARY | 2024-11-05 15:23 | XMS_ITS | Patient Health Record ---
Author Organization [employer] Address [address] [place] [address] Care Team Providers Care Storage Solutions Architect Name Role Phone JESSE BURRIS Unavailable [phone] Allergies No Known Allergies Reason For Referral [...] Robert Healy 12/21/2023 07:40:57 PM BOT > Respiratory Rate [...] Robert Healy 12/21/2023 07:40:57 PM BOT > Height-cm 165.1 [...] Robert Healy 12/21/2023 07:40:57 PM BOT > Oximetry 99 [...] Robert Alvarez 12/21/2023 07:40:57 PM BOT > Height 65 [...] de [facility] [address] [place] [address] 12/21/2023 JESSE BURRIS Epigastric abdominal pain R10.13 [...] BELLE PAULOCHARISSE YUSUF K[address]OUR[address], [place] [address] [id number] LEV PORTILLO Self - patient is the insured 3
--- OUTSIDE RECORDS SUMMARY | 2024-11-05 15:23 | XMS_ITS | Encounter Summary ---
Author Organization [employer] Address [address] [facility] 7t [place] [address] Care Team Providers Care Glaciologist Name Role Phone Francisca Vargas MD Primary Care Provider [phone] Reason for Visit * Reason Onset Date Comments Letter for School/Work 11/05/2024 Encounter Details Date Type Department Care Team ([facility] Contact Info) Description 11/05/2024 Telephone [facility] [address] [place] [address] Francisca Vargas MD [address] [place] [address] Letter for School/Work Social History Tobacco Use Types Packs/Day Years [...] your housing situation today? 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 ile Not on file documented as of this encounter Miscellaneous Notes * Telephone Encounter - Flower Richie - 11/05/2024 1:05 PM EST Letter needed for work documented in this encounter Plan of Treatment Upcoming Encounters Date Type Department Care Team (Late st Contact Info) Description 02/09/2025 2:30 PM EDT Office Visit [facility] OPTOMETRY [address] [place], [place] [phone] Maria L Villegas, OD [address] [place], [place] [phone] documented as of this encounter Visit Diagnoses Not on filedocumented in this encounter Additional Health Concerns Assessment Noted Time PHQ-9 Depression Total Score: 17 024 2:58 PM EDT documented as of this encounter Care Teams Glaciologist Relationship Specialty Start Date End Date Francisca Vargas MD [address] [place], [place] [phone] PCP - General Family Medicine 11/08/22 documented as of this encounter
--- OUTSIDE RECORDS SUMMARY | 2024-11-05 15:23 | XMS_ITS ---
Author Organization [facility] Address [address] [place] [address] Care Team Providers Care Sewing Machine Bobbin Winder Name Role Phone AURA FRANKLIN Unavailable Social History Sex Assigned At : Social History Observation Description Sex Assigned At Female Encounters Encounter Location Date Provider Diagnosis [facility] [address] [place] [address] 06/25/2023 AURA LEMUS Plan Of Treatment No Information Progress Notes * LEV PORTILLO NDOB:1995 (29 yo F)Acc No.[id number]:06/25/2023 Progress Notes Patient:?POP PORTILLO Provider:?AURA LEMUS :1995???Age:28 Y???Sex:Female D ate:06/25/2023 [address] [place] [address], [facility] [id number] Structured Data:[place] : No Subjective: * Chief Complaints: * ??? * Medical History:? Objective: * Vitals:? Assessment: Plan: * Treatment: * Billing Information: * Visit Code:? * Procedure Codes:? * Electronic signature of VIKTOR LEMUS MD, [id number] on 11/05/2024 at 04:22 PM BOT Sign off status: Pending * Provider:?AURA LEMUS Date:?1 Generated for Joann mendoza/Geovany/Alice on:?11/05/2024 04:22 PM BOT
--- OUTSIDE RECORDS SUMMARY | 2024-11-05 15:23 | XMS_ITS | Encounter Summary ---
Author Organization [employer] Address [address] [facility] 7t [place] [address] Care Team Providers Care Allergist Immunologist Name Role Phone Francisca Vargas MD Primary Care Provider [phone] Reason for Visit * Reason Onset Date Comments Appointment Request 11/03/2024 Encounter Details Date Type Department Care Team ([facility] st Contact Info) Description 11/03/2024 Telephone [facility] [address] [place], [place] [phone] Francisca Vargas MD [address] [place], [place] [phone] Appointment Request Social History Tobacco Use Types [...] Industry Job 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 Date 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
--- OUTSIDE RECORDS SUMMARY | 2024-11-05 15:23 | XMS_ITS | Encounter Summary ---
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 Protocol Used: No Contact [...] The caller accepted this outcome Patient speaks albanian documented in this encounter Plan of Treatment Upcoming Encounters Date Type Department Care Team ([facility] st Contact Info) Description 02/09/2025 2:30 PM EDT Office Visit [facility] [address] [place] [address] Maria L Villegas, OD [address] [place], [place] [phone] documented as of this encounter Visit Diagnoses Not on filedocumented in this encounter Additional Health Concerns Assessment Noted Time PHQ-9 Depression Total Score: 7 09/14/19 23 2:03 PM EST documented as of this encounter Care Teams Water Service Supervisor Relationship Specialty Start Date End Date Francisca Vargas MD [address] [place] [address] PCP - General Family Medicine 11/08/22 documented as of this encounter
--- OUTSIDE RECORDS SUMMARY | 2024-11-05 15:23 | XMS_ITS | Encounter Summary ---
Author Organization [employer] Address [address] [facility] 7t [place] [address] Care Team Providers Care Call Center Nurse Name Role Phone Francisca Vargas MD Primary Care Provider [phone] Reason for Visit * Reason Onset Date Comments Work Form 11/05/2024 I called jesus mendoza a Statement of Good Health, from [facility]. I informed the patient that Tspot labs were ordered, and she may come to the [facility] lab to have them done. She verbalized understanding. Encounter Details Date Type Department Care Team ([facility] Contact Info) Description 11/05/2024 Telephone [facility] MEDICINE [address] [place], [place] [phone] Francisca Vargas MD [address] [place], [place] [phone] Work Form (I called regarding a Statement of Good Health, from [facility]. I informed the patient that Tspot labs were ordered, and she may come to the [facility] lab to have them done. 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 I informed the patient that Tspot labs were ordered, and she may come to the [facility] lab to have them done. She verbalized understanding. documented in this encounter Plan of Treatment Upcoming Encounters Date Type Department Care Team (Late st Contact Info) Description 02/09/2025 2:30 PM EDT Office Visit [facility] OPTOMETRY [address] [place] [address] Maria L Villegas, OD [address] [place] [address] documented as of this encounter Visit Diagnoses Not on filedocumented in this encounter Additional Health Concerns Assessment Noted Time PHQ-9 Depression Total Score: 17 024 2:58 PM EDT documented as of this encounter Care Teams Call Center Nurse Relationship Specialty Start Date End Date Francisca Vargas MD [address] [place] [address] PCP - General Family Medicine 11/08/22 documented as of this encounter
--- OUTSIDE RECORDS SUMMARY | 2024-11-05 15:23 | XMS_ITS | Encounter Summary ---
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 on f ile Not on file documented as of this encounter Plan of Treatment Upcoming Encounters Date Type Department Care Team (Late st Contact Info) Description 02/09/2025 2:30 PM EDT Office Visit [facility] OPTOMETRY [address] [place] [address] Bakari, Maria L, OD [address] [place], [place] [phone] documented as of this encounter Visit Diagnoses Not on filedocumented in this encounter Additional Health Concerns Assessment Noted Time PHQ-9 Depression Total Score: 17 024 2:58 PM EDT documented as of this encounter Care Teams Hvac Lead Relationship Specialty Start Date End Date Francisca Vargas MD [address] [place] [address] PCP - General Family Medicine 11/08/22 documented as of this encounter
--- OUTSIDE RECORDS SUMMARY | 2024-11-05 15:23 | XMS_ITS | Encounter Summary ---
Author Organization [employer] Address [address] [facility] 7t [place] [address] Care Team Providers Care Hose Builder Name Role Phone Francisca Vargas MD Primary Care Provider [phone] Reason for Visit * Reason Onset Date Comments Tspot needed for employment 11/04/2024 Encounter Details Date Type Department Care Team ([facility] Contact Info) Description 11/04/2024 Telephone [facility] [address] [place] [address] Francisca Vargas MD [address] [place] [address] Tspot needed for employment Social History Tobacco Use Types Packs/Day Years [...] Industry Job Start Date Job End Date 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 Tspot order placed, forms RN will contact patient and inform to come to lab for BW. documented in this encounter Plan of Treatment Upcoming Encounters Date Type Department Care Team (Late st Contact Info) Description 02/09/2025 2:30 PM EDT Office Visit [facility] OPTOMETRY [address] [place] [address] Bakari, Maria L, OD [address] [place], [place] [phone] Scheduled Orders Name Type Priority Associated Diagnoses Orde r Schedule T-SPOT??.TB Lab Routine Encounter for screening for respiratory tuberculosis Expected: 11/04/2024 (Approximate), Expires: 11/04/2025 documented as of this encounter Visit Diagnoses Diagnosis Encounter for screening for respiratory tuberculosis documented in this encounter Additional Health Concerns Assessment Noted Time PHQ-9 Depression Total Score: 17 024 2:58 PM EDT documented as of this encounter Care Teams Hose Builder Relationship Specialty Start Date End Date Francisca Vargas MD [address] [place] [address] PCP - General Family Medicine 11/08/22 documented as of this encounter
--- OUTSIDE RECORDS SUMMARY | 2024-11-05 15:23 | XMS_ITS ---
Author Organization [facility] Address [address] [place] [address] Care Team Providers Care Dish Person Name Role Phone GUS GARCIA [phone] REASON FOR VISIT DUPLICADO Social History Sex Assigned At : Social History Observation Description Sex Assigned At Female Encounters Encounter Location Date [facility] [address] [facility] [place] [address] 07/16/2023 GUS GARCIA Plan Of Treatment No Information Progress Notes * LEV PORTILLO NDOB:1995 (28 yo F)Acc No.[id number]:07/16/2023 Patient:?BRANDON SALGADOPOP Provider:?GUS GRIFFIN MD :1995???Age:28 Y???Sex:Female D ate:07/16/2023 [address] [facility] [place], [place] Structured Data:[place] : No Subjective: * Chief Complaints: * ???1. DUPLICADO. * Medical History:? Objective: Assessment: Plan: * Treatment: * Billing Information: * Visit Code:? * Procedure Codes:? * Sign off status: Completed true * Provider:?GUS GRIFFIN MD Date :?07/16/2023 Generated for Joann mendoza/Geovany/Alice on:?11/05/2024 04:23 PM BOT
--- OUTSIDE RECORDS SUMMARY | 2024-11-05 15:23 | XMS_ITS | Encounter Summary ---
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
--- OUTSIDE RECORDS SUMMARY | 2024-11-05 15:23 | XMS_ITS ---
Author Organization [employer] Address [address] [place] [address] Care Team Providers Care Roller Leveler Name Role Phone JESSE BURRIS Unavailable [phone] Allergies No Known Allergies REASON FOR VISIT DOLOR ABDOMINAL Social History Tobacco Use: Social History Observation Description Date Details (start date - stop date) Never Smoker NA - NA Sex Assigned At : Social History Observation Description Sex Assigned At Female Tobacco Use/Smoking Question Answer Notes Tobacco use: nonsmoker Vital Signs Blood pressure systolic 123 mm Hg 12/21/19 24 Blood pressure diastolic 83 mm Hg 024 Heart Rate 98 /min 12/21/2023 Respiratory Rate 18 /min 12/21/2023 Temperature 98.3 degrees Fahrenheit 12/21/19 24 Oximetry 99 % 12/21/2023 Weight 189 lbs 12/21/2023 Height 65 in 12/21/2023 BMI 31.45 kg/m2 12/21/2023 Weight-kg 85.73 kg 12/21/2023 Height-cm 165.1 cm 12/21/2023 SE RECIBE PACIENTE [...] de [facility] [address] [place] [address] 12/21/2023 JESSE BURRIS Epigastric abdominal pain R10.13 [...] * LEV PORTILLO NDOB:1995 (28 yo F)Acc No.[id number]:12/21/2023 Patient:?POP PORTILLO ETT MUSA Provider:?JESSE PHILIPPE MD :1995???Age:28 Y???Sex:Female D ate:12/21/2023 Address:[facility] [facility] [address], [phone] Structured Data: : No Subjective: * Chief [...] Transporte?Candelario Privado.?Acompanado por:?HAYLEY.?Clasificacion Triage?Urgencia.?Estado de animo?Calmado.?Completado por:?[id number].? * Medical History:?Medical His tory Verified. * [...] LONDON MD Date:?12/21/2023 Generated for Joann mendoza/Geovany/eTransmitting on:?11/05/2024 04:22 PM BOT History and Physical Notes * [...] Estado de animo Calmado Completado por: [id number]
--- OUTSIDE RECORDS SUMMARY | 2024-11-05 15:24 | XMS_ITS | Encounter Summary ---
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
--- OUTSIDE RECORDS SUMMARY | 2024-11-05 15:24 | XMS_ITS | Encounter Summary ---
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
--- OUTSIDE RECORDS SUMMARY | 2024-11-05 15:24 | XMS_ITS | Clinical Summary ---
Author Organization [employer] Address [address] [facility] 7t [place] [address] Care Team Providers Care Forest Ecology Professor Name Role Phone Francisca Vargas MD Primary Care Provider [phone] Allergies No known active allergies Medications * [...] . 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 She reports that while living in [place] she had a breast US and was told everything was fine. On today's exam, pt is able to easily express a yellowish nipple discharge from both breasts, no blood. There are NO masses or associated skin changes. Plan: will initiate work up of galactorrhea with a Prolactin level, will obtain bilateral breast US and will refer to [facility]. Follow up with PCP after initial testing [...] organization. Date Type Department Care Team Description 11/05/2024 Telephone [facility] [place] [address] Francisca Vargas MD Letter for School/Work 11/05/2024 Telephone [facility] [place] [address] Francisca Vargas MD Work Form (I called regarding a Statement of Good Health, from [facility]. I informed the patient that [employer] labs were ordered, and she may come to the [facility] lab to have them done. She verbalized understanding.) 11/04/2024 Telephone [facility] [place] [address] Francisca Vargas MD [employer] needed for employment 11/03/2024 2:30 PM EST Office Visit [facility] [place] [address] Mason Ruvalcaba MD Routine physical examination (Primary Dx); Chronic cough; Discharge from breast; Depressed mood; Acanthosis nigricans; Tinea corporis 11/03/2024 Telephone [facility] [place] [address] Francisca Vargas MD Appointment Request 11/03/2024 Travel 11/02/2024 Telephone [facility] [place] [address] Francisca Vargas MD Chart Prep 10/15/[address] [address] Nahomy Lakhani [place] recall 09/15/[address] [address] Francisca Vargas MD Results 09/15/[address] [address] Francisca Vargas MD from Last 3 Months [...] is your housing situation today? 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 Not on f ile [...] 02/09/2025 2:30 PM EDT Office Visit [facility] OPTOMETRY [address] [place] [address] Maria L Villegas, OD [address] [place] [address] Health Maintenance Due Date Last Done Comments Family Planning (PISQ) 02/22/2012 Hepatitis B Vaccines (1 of 3 - 19+ 3-dose series) 02/22/2016 HPV Vaccines (2 - 3-dose series) 07/12/2021 06/14/2021 Pap Smear 06/17/2023 06/17/2020, 06/17/2020 COVID-19 Vaccine (4 - 2023-2 5 season) 2024 04/27/2022, 11/24/2021, 07/12/2021 Depression [...] Routine 11/04/2024 9:01 AM EST Chronic cough PROLACTIN Routine 11/03/2024 3:55 PM EST Discharge [...] Recently Relevant to Health Maintenance Results * XR Chest 2 Views (11/04/2024 9:01 AM EST) Anatomical Region Laterality Modality Chest Radiographic Chica ging 11/04/2024 9:01 AM EST Narrative 11/04/2024 1:11 PM EST ? [facility] ?[address] ?[place] [address] ?XRay Report ? Signed ? Patient: Duran Reyes,Yamilivett ?MR#: M ?? [id number] ? : 1995 ?Acct:[id number] ? Age/Sex: 29 / F ?ADM Date: 02/26/25 ? Loc: HO.XRAY ? Attending Dr: Mason Sam MD ? Ordering Physician: Mason Sam MD ?? Date of Service: 11/04/24 ?? Procedure(s): XR chest 2V ?? Accession Number(s): [id number] ? cc: Mason Sam MD ? EXAMINATION: [...] ??Pollo Burns MD ??11/04/2024 01:08 PM EST ? Dictated By: ?Pollo Burns MD ? Signed By: ?<Electronically signed by Pollo Burns MD in OV> ?11/04/24 1308 ? DD/ 0901 ? TD/TT: 11/04/24 0913 ? Manager Of Construction: ? Procedure Note Rowdy, Beth - 11/04/2024 [place] [address] XRay Report Signed Patient: Anna Barclay#: M [id number] : 1995Acct:[id number] Age/Sex: 29 / FADM Date: 11/04/24 Loc: HO.XRAY Attending Dr: Mason Sam MD Ordering Physician: Mason Sam MD Date of Service: 11/04/24 Procedure(s): XR chest 2V Accession Number(s): [id number] cc: Mason Sam MD EXAMINATION: XR CHEST [...] 11/04/24 1308 DD/ 0901 TD/TT: 11/04/24 0913 Manager Of Construction: Mason Garcia MD IMG XR PROCEDURES Fin al Result * TSH with Reflex to Free T4 (11/03/2024 3:55 PM EST) TSH reflex Free T4 2.88 0.32 - 4.0 uIU/mL [facility] Blood Venous blood specimen / Unknown 11/03/2024 3:55 PM EST 11/03/2024 6:03 PM EST Mason Garcia MD LAB BLOOD ORDERABLES Final Result [facility] [address] [place] [phone] * Prolactin (11/03/2024 3:55 PM EST) Prolactin 12.7 ng/mL [facility] Comment:Reference Range Fema les Non- 3.0-30.0 10.0-209.0 Postmenopausal 2.0-20.0THIS TEST WAS PERFORMED AT:[facility] [employer] [place] [phone] YANG MD Blood Venous blood specimen / Unknown 11/03/2024 3:55 PM EST 11/03/2024 6:03 PM EST us Mason Garcia MD LAB BLOOD ORDERABLES Final Result Performing Organization Address [facility]/ZIP Co de Phone Number [facility] [address] [place] [phone] * POCT Rapid Influenza B CEE ID NOW (11/03/2024 3:08 PM EST) Influenza B Negative Negative, Indeterminate [facility] QC Media Lot # [id number] [facility] Lot# Expiration Date [facility] Swab 11/03/2024 3:08 PM EST Mason Garcia MD POINT OF CARE TEST EN TER/EDIT ORDERABLES Final Result Performing Organization Address [facility] Co de Phone Number [facility] [address] [place] [phone] * POCT Rapid Influenza A CEE ID NOW (11/03/2024 3:08 PM EST) Influenza A Negative Negative, Indeterminate [facility] QC Media Lot # [id number] [facility] Lot# Expiration Date [facility] Swab 11/03/2024 3:08 PM EST Mason Garcia MD POINT OF CARE TEST EN TER/EDIT ORDERABLES Final Result Performing Organization Address [facility] Co de Phone Number [facility] [address] [place] [phone] * POCT Rapid Covid-19 BinaxNOW (11/03/2024 3:02 PM EST) Rapid COVID Ag Negative QC Media Lot # [id number] Lot# Expiration Date Swab 11/03/2024 3:02 PM EST Mason Garcia MD POINT OF CARE TEST EN TER/EDIT ORDERABLES Final Result * Hepatitis C Antibody with Reflex to HCV, RNA, Quantitative, Real-Time PCR (07/10/2024 12:00 AM EDT) Hepatitis C Antibody Nonreactive Nonreactive [facility] Comment:Antibodies to HCV no t detected; does not exclude early acuteHCV infection. Blood Venous blood specimen / Unknown 07/10/2024 07/10/2024 Francisca Vargas MD LAB BLOOD ORDERABLES Final Res ult Performing Organization Address [facility]/ZIP Co de Phone Number [facility] [address] [place] [phone] * HIV-1/2 Antigen and Antibodies, Fourth Generation, with Reflexes (07/10/2024 12:00 AM EDT) HIV AB/AG Nonreactive Nonreactive [facility] Comment:HIV-1 p24 Ag and/or HIV-1/HIV-2 Ab not detected.A test result that is nonreactive does not exclude thepossibility of exposure to or infection with HIV-1 and/orHIV-2. Nonreactive results in this assay for individualswith prior exposure to HIV-1 and/or HIV-2 may be due toantigen and antibody levels that are below the limit ofdetection of this assay.The [employer] HIV Ag/Ab Combo assay result andsupplemental assay results should be interpreted inconjunction with the patient's clinical presentation,history and other laboratory results. If the results areinconsistent with clinical evidence, additional testing issuggested to confirm the result. Blood Venous blood specimen / Unknown 07/10/2024 07/10/2024 Francisca Vargas MD LAB BLOOD ORDERABLES Final Res ult Performing Organization Address [facility]/ZIP Co de Phone Number [facility] [address] [place] [phone] * Hm Pap Smear (06/17/2020) us Historical Provider HEALTH MAINTENANCE Final Result from Last 3 Months or Most Recently Relevant to Health Maintenance Insurance [employer] Care Teams Forest Ecology Professor Relationship Specialty Start Date End Date Francisca Vargas MD [address] [place] [address] PCP - General Family Medicine 11/08/22
[2024-11-08 13:48] LABS: TS Negative Control Passed; TS Panel A 0; TS Panel B 0; TS Positive Control Passed; TSpotTB Negative (Negative)
== END 2024-11-05 12:57 | disposition home or self-care (01) ==
LOC: HO.HHCL 12:56
PROVIDERS: Visit Provider General Practice
DX: Z11.1 Encounter for screening for respiratory tuberculosis (principal)
CPT/HCPCS: 36415; 86481

== ENCOUNTER → 2024-11-23 08:15 | Outpatient (BNV) | payer MEDICAID, SELFPAY | PROVIDERS: PCP Internal Medicine; Visit Provider Internal Medicine | DX: N64.52 Nipple discharge (principal) | CPT/HCPCS: 76642 ==

== ENCOUNTER 2024-11-23 08:20 | Outpatient (REF) | payer MEDICAID, SELFPAY ==
--- NOTE | ~2024-11-23 | US_ITS ---
EXAMINATION: US DIAGNOSTIC ULTRASOUND BREAST, BILATERAL CLINICAL INFORMATION: Bilateral yellow nipple discharge. COMPARISON: Comparison is made with relevant prior imaging. TECHNIQUE: Ultrasound of the breast is performed with real-time leon scale imaging and color Doppler. FINDINGS: Targeted color Doppler ultrasound scanning in the bilateral retroareolar regions at site of yellow nipple discharge demonstrates normal fibronodular breast tissue and a few ectatic ducts. There is no sonographic normality. Results are discussed with the patient at time of visit. US/US breast BI limited mamm only IMPRESSION: No sonographic abnormality to account for the yellow nipple discharge. Benign. Benign ectatic ducts are seen. ASSESSMENT: BI-RADS 2 benign. RECOMMENDATION: Recommend clinical evaluation and follow-up and routine screening at age 42. This patient's information was entered into a reminder system with a target due date for their next mammogram. Electronically signed by: Janet Blackman DO 11/23/2024 09:30 AM EDT
== END 2024-11-23 08:21 | disposition home or self-care (01) ==
LOC: HO.MAMMO 08:20
PROVIDERS: PCP Internal Medicine; Visit Provider Internal Medicine
DX: N64.52 Nipple discharge (principal)
CPT/HCPCS: 76642

== ENCOUNTER 2025-06-24 13:09 | Outpatient (REF) | payer MEDICAID, SELFPAY ==
--- OUTSIDE RECORDS SUMMARY | 2025-06-24 16:27 | XMS_ITS | Encounter Summary ---
Author Organization [employer] Address [address] [facility] [address]t [place] [address] Care Team Providers Care Event Planning Intern Name Role Phone Francisca Vargas MD Primary Care Provider [phone] Reason for Visit * Reason Onset Date Comments Nurse Triage 04/11/2023 Encounter Details Date Type Department Care Team ([facility] st Contact Info) Description 04/11/2023 Telephone [facility] MEDICINE [address] [place], [place] [phone] Francisca Vargas MD [address] [place], [place] [phone] Nurse Triage Social History Tobacco Use Types [...] Industry Job Start Date Job End Date 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 Protocol Used: No [...] The caller accepted this outcome Patient speaks irish documented in this encounter Plan of Treatment Upcoming Encounters Date Type Department Care Team ([facility] st Contact Info) Description 07/20/2025 10:15 AM EST Procedure Visit [facility] MEDICINE [address] [place] [address] Francisca Vargas MD [address] [place] [address] documented as of this encounter Visit Diagnoses Not on filedocumented in this encounter Additional Health Concerns Assessment Noted Time PHQ-9 Depression Total Score: 7 09/14/19 23 2:03 PM EST documented as of this encounter Care Teams Event Planning Intern Relationship Specialty Start Date End Date Francisca Vargas MD [address] [place] [address] PCP - General Family Medicine 11/08/22 documented as of this encounter
--- OUTSIDE RECORDS SUMMARY | 2025-06-24 16:27 | XMS_ITS | Patient Health Record ---
Author Organization [facility] Address [address] [place] [address] Support Name Relationship Address Phone LEV PORTILLO Guarantor Unknown Allergies No Known Allergies Reason For Referral No Information Immunizations Vaccine Route Administration Date Status Comme nts TB Skin Test ID Intradermal 05/15/2023 Administered TB Skin Test ID Intradermal 05/28/2023 Administered Social History Tobacco Use: Social History Observation Description Date Details (start date - stop date) Never Smoker NA - NA Sex Assigned At : Social History Observation Description Sex Assigned At Female Social History Drugs/Alcohol Social Info Question Answer Notes Caffeine Intake: none Tobacco Use: Social Info Question Answer Notes Tobacco Use/Smoking Tobacco use: nonsmoker Problems Problem Type SNOMED Code ICD Code Onset Dates Problem Status W/U Status Risk Notes Problem Encounter for issuance of medical certificate (Z02.79) Active confirmed Plan Of Treatment No Information Insurance Providers Payer Name Payer Address Payer Phone Subscriber Number Group Number Insured Name Patient Relationship to Insured Coverage Start Date Coverage End Date PLAN [employer] YUSUF [address]HOUR[address] [place] [address] [id number] LEV PORTILLO Self - patient is the insured 3
--- OUTSIDE RECORDS SUMMARY | 2025-06-24 16:27 | XMS_ITS | Clinical Summary ---
Author Organization [employer] Address [address] [facility] [address] [place] [address] Care Team Providers Care Export Clerk Name Role Phone Francisca Vargas MD Primary Care Provider [phone] Allergies No known active allergies Medications * This document contains information received from the source organization and may not represent a complete record from that organization. No known medications Active Problems Problem Noted Date Diagnosed Date Routine physical examination 11/03/2024 Assessment & Plan (11/03/2024 3:05 PM EST): Physical exam today , findings as Assessment and Plan For employment purposes pt has been cleared to work with no limitations . 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 She reports that while living in [place] she had a breast US and was told everything was fine. On today's exam, pt is able to easily express a yellowish nipple discharge from both breasts, no blood. There are NO masses or associated skin changes. Plan: will initiate work up of galactorrhea with a Prolactin level, will obtain bilateral breast US and [place] [facility] [place] [facility] [place] Follow up with PCP [...] improving with Nizoral prescribed by PCP Encounters Date Type Department Care Team Description 06/24/[address] [address] Francisca Vargas MD Retail Sales Associate Bilingual Form (I called the patient, regarding a Family Retail Sales Associate Bilingual Medical Form. I informed her that she needs to have MMR titers done, before the form is completed. 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 [employer] Not on file Not on f ile Not on file Last Filed Vital Signs Vital Sign Reading Time Taken Comments Blood Pressure 134/86 11/03/2024 2:37 PM EST Pulse 88 11/03/2024 2:37 PM EST Temperature 36.6 C (97.8 F) 11/03/2024 2:37 PM EST Respiratory Rate 20 11/03/2024 2:37 PM EST Oxygen Saturation 97% 11/03/2024 2:37 PM EST Inhaled Oxygen Concentration - - Weight 80.2 kg (176 lb 12.8 oz) 11/03/2024 2:37 PM EST Height 165.1 cm (5' 5 ) 11/03/2024 2:37 PM EST Body Mass Index 29.42 11/03/2024 2:37 PM EST Plan of Treatment Upcoming Encounters Date Type Department Care Team (Late st Contact Info) Description 07/20/2025 10:15 AM EST Procedure Visit [facility] [address] [place] [address] Francisca Vargas MD [address] [place], [place] [phone] Health Maintenance Due Date Last Done Comments Disability Screening 1995 Family Planning (PISQ) 02/22/2012 Hepatitis B Vaccines (1 of 3 - 19+ 3-dose series) 02/22/2016 HPV Vaccines (2 - 3-dose series) 07/12/2021 06/14/2021 Pap Smear 06/17/2023 06/17/2020, 06/17/2020 Depression Monitoring 01/07/2025 07/10/2024 , 07/10/2024 COVID-19 Vaccine (4 - 2024-2 6 season) 2025 04/27/2022, 11/24/2021, 07/12/2021 Influenza Vaccine (#1) 2025 , 06/26/2018, 07/26/2016 Alcohol/Substance Use Screening 11/03/2025 11/03/2024 SDOH Screening 11/03/2025 11/03/2024 Tobacco Screening 02/15/2026 02/15/2025 DTaP/Tdap/Td Vaccines (3 - T d or Tdap) 04/18/2028 04/18/2018, 07/26/2016 Mammogram 11/23/2037 11/23/2024 Zoster Vaccines (1 of 2) 2047 RSV Patients and Patients Aged 60 years or older (1 - 1-dose 75+ series) 02/22/2072 HIV Screening Completed 07/10/2024, 06/16/2020 Hepatitis C Screening Completed 07/10/2024 , 06/16/2020 HIB Vaccines Aged Out No longer eligi ble based on patient's age to complete this topic Hepatitis A Vaccines Aged Out No long er eligible based on patient's age to complete this topic IPV Vaccines Aged Out No longer eligi ble based on patient's age to complete this topic Meningococcal B Vaccine Aged Out No l onger eligible based on patient's age to complete this topic Meningococcal Vaccine Aged Out No jassi luis eligible based on patient's age to complete this topic Pneumococcal Vaccine: Pediatrics (0 to 5 Years) and At-Risk Patients (6 to 49) Years Aged Out No longer eligible b ased on patient's age to complete this topic RSV under 20 months Aged Out No longe r eligible based on patient's age to complete this topic Rotavirus Vaccines Aged Out No longer eligible based on patient's age to complete this topic Procedures Procedure Name Priority Date/Time Associated Diagnosis Comments BI US BREAST LIMITED BILATERAL Routine 11/23/2024 8:35 AM EDT HEPATITIS C AB W/REFL TO HCV RNA, QN, PCR Routine 07/10/2024 12:00 AM EDT Routine screening for STI (sexually transmitted infection) HIV 1/2 ANTIGEN/ANTIBODY, FOURTH GENERATION W/RFL Routine 07/10/2024 12:00 AM EDT Routine screening for STI (sexually transmitted infection) HM PAP/HPV Routine 06/17/2020 from Last 3 Months or Most Recently Relevant to Health Maintenance Results * BI US Breast Limited Bilateral (11/23/2024 8:35 AM EDT) Anatomical Region Laterality Modality Breast Bilateral Ultrasound 11/23/2024 8:35 AM EDT Narrative 11/23/2024 9:33 AM EDT [facility] [address] [place] [address] Ultrasound Report Signed Patient: Anna Barclay MR#: [id number] : 1995 Acct:[id number] Age/Sex: 29 / F ADM Date: 11/23/24 Loc: HO.MAMMO Attending Dr: Mason Sam MD Ordering Physician: Mason Sam MD Date of Service: 11/23/24 Procedure(s): US breast BI limited mamm only Accession Number(s): [id number] cc: Mason Sam MD EXAMINATION: US DIAGNOSTIC ULTRASOUND BREAST, BILATERAL CLINICAL INFORMATION: Bilateral yellow nipple discharge. COMPARISON: Comparison is made with relevant prior imaging. TECHNIQUE: Ultrasound of the breast is performed with real-time leon scale imaging and color Doppler. FINDINGS: Targeted color Doppler ultrasound scanning in the bilateral retroareolar regions at site of yellow nipple discharge demonstrates normal fibronodular breast tissue and a few ectatic ducts. There is no sonographic normality. Results are discussed with the patient at time of visit. US/US breast BI limited mamm only IMPRESSION: No sonographic abnormality to account for the yellow nipple discharge. Benign. Benign ectatic ducts are seen. ASSESSMENT: BI-RADS 2 benign. RECOMMENDATION: Recommend clinical evaluation and follow-up and routine screening at age 42. This patient's information was entered into a reminder system with a target due date for their next mammogram. Electronically signed by: Janet Blackman DO 11/23/2024 09:30 AM EDT Dictated By: Janet Blackman DO Signed By: <Electronically signed by Janet Blackman DO in OV> 11/23/24 0930 DD/ 0835 TD/TT: 11/23/24 0900 Hooker On: Procedure Note Donotuseinterpreter, Image - 11/23/2024 [facility] [address] [place] [address] Ultrasound Report Signed Patient: Anna Barclay#: M [id number] : 1995Acct:[id number] Age/Sex: M Date: 11/23/24 Loc: HO.MAMMO Attending Dr: Mason Sam MD Ordering Physician: Mason Sam MD Date of Service: 11/23/24 Procedure(s): US breast BI limited mamm only Accession Number(s): [id number] cc: Mason Sam MD EXAMINATION: US DIAGNOSTIC ULTRASOUND BREAST, BILATERAL CLINICAL INFORMATION: Bilateral yellow nipple discharge. COMPARISON: Comparison is made with relevant prior imaging. TECHNIQUE: Ultrasound of the breast is performed with real-time leon scale imaging and color Doppler. FINDINGS: Targeted color Doppler ultrasound scanning in the bilateral retroareolar regions at site of yellow nipple discharge demonstrates normal fibronodular breast tissue and a few ectatic ducts. There is no sonographic normality. Results are discussed with the patient at time of visit. US/US breast BI limited mamm only IMPRESSION: No sonographic abnormality to account for the yellow nipple discharge. Benign. Benign ectatic ducts are seen. ASSESSMENT: BI-RADS 2 benign. RECOMMENDATION: Recommend clinical evaluation and follow-up and routine screening at age 42. This patient's information was entered into a reminder system with a target due date for their next mammogram. Electronically signed by: Janet Blackman DO 11/23/2024 09:30 AM EDT RP Dictated By: Janet Blackman DO Signed By: <Electronically signed by Janet Blackman DO in OV> 11/23/24 0930 DD/ 0835 TD/TT: 11/23/24 0900 Hooker On: us Mason Garcia MD IM US PROCEDURES Fin al Result * Hepatitis C Antibody with Reflex to HCV, RNA, Quantitative, Real-Time PCR (07/10/2024 12:00 AM EDT) Hepatitis C Antibody Nonreactive Nonreactive [facility] Comment:Antibodies to HCV no t detected; does not exclude early acuteHCV infection. Blood Venous blood specimen / Unknown 07/10/2024 07/10/2024 Francisca Vargas MD LAB BLOOD ORDERABLES Final Res ult [facility] [address] [place] [phone] * HIV-1/2 Antigen and Antibodies, Fourth Generation, with Reflexes (07/10/2024 12:00 AM EDT) HIV AB/AG Nonreactive Nonreactive [facility] Comment:HIV-1 p24 Ag and/or HIV-1/HIV-2 Ab not detected.A test result that is nonreactive does not exclude thepossibility of exposure to or infection with HIV-1 and/orHIV-2. Nonreactive results in this assay for individualswith prior exposure to HIV-1 and/or HIV-2 may be due toantigen and antibody levels that are below the limit ofdetection of this assay.The [employer] HIV Ag/Ab Combo assay result andsupplemental assay results should be interpreted inconjunction with the patient's clinical presentation,history and other laboratory results. If the results areinconsistent with clinical evidence, additional testing issuggested to confirm the result. Blood Venous blood specimen / Unknown 07/10/2024 07/10/2024 Francisca Vargas MD LAB BLOOD ORDERABLES Final Res ult [facility] [address] [place] [address] [phone] * Pap Smear (06/17/2020) us Historical Provider HEALTH MAINTENANCE Final Result from Last 3 Months or Most Recently Relevant to Health Maintenance Insurance [facility] STANDARD Care Teams Export Clerk Relationship Specialty Start Date End Date Francisca Vargas MD [address] [place] [address] PCP - General Family Medicine 11/08/22
--- OUTSIDE RECORDS SUMMARY | 2025-06-24 16:27 | XMS_ITS | Encounter Summary ---
Author Organization [employer] Address [address] [facility] 7t [place] [address] Care Team Providers Care Child Welfare Director Name Role Phone Francisca Vargas MD Primary Care Provider [phone] Reason for Visit * Reason Onset Date Comments Referral 11/18/2024 Encounter Details Date Type Department Care Team ([facility] st Contact Info) Description 11/18/2024 Telephone [facility] [address] [place], [place] [phone] Francisca Vargas MD [address] [place], [place] [phone] Referral Social History Tobacco Use Types Packs/Day Years [...] Industry Job Start Date Job End Date 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 Please call pt [phone] documented in this encounter Plan of Treatment Upcoming Encounters Date Type Department Care Team (Late st Contact Info) Description 07/20/2025 10:15 AM EST Procedure Visit [facility] [address] [place] [address] Francisca Vargas MD [address] [place] [address] documented as of this encounter Visit Diagnoses Not on filedocumented in this encounter Additional Health Concerns Assessment Noted Time PHQ-9 Depression Total Score: 17 024 2:58 PM EDT documented as of this encounter Care Teams Child Welfare Director Relationship Specialty Start Date End Date Francisca Vargas MD [address] [place] [address] PCP - General Family Medicine 11/08/22 documented as of this encounter
--- OUTSIDE RECORDS SUMMARY | 2025-06-24 16:27 | XMS_ITS | Encounter Summary ---
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
--- OUTSIDE RECORDS SUMMARY | 2025-06-24 16:27 | XMS_ITS | Encounter Summary ---
Author Organization [employer] Address [address] [facility] [address] [place] [address] Care Team Providers Care Package Line Operator Name Role Phone Francisca Vargas MD Primary Care Provider [phone] Reason for Visit * Reason Onset Date Comments Vacuum Tank Tender Form 06/24/2025 I called the pat ient, regarding a Family Vacuum Tank Tender Medical Form. I informed her that she needs to have MMR titers done, before the form is completed. She verbalized understanding. Encounter Details Date Type Department Care Team ([facility] Contact Info) Description 06/24/2025 Telephone [facility] [address] [place], [place] [phone] Francisca Vargas MD [address] [place], [place] [phone] Vacuum Tank Tender Form (I called the patient, regarding a Family Vacuum Tank Tender Medical Form. I informed her that she needs to have MMR titers done, before the form is completed. 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 TC placed to pt. And pt. Verbalizes understanding, will come to lab. * Telephone Encounter - Marleny Jacobson MA - 06/24/2025 9:19 AM EDT I called the patient, regarding a Family Vacuum Tank Tender Medical Form. I informed her that she needs to have MMR titers done, before the form is completed. She verbalized understanding. documented in this encounter Plan of Treatment Upcoming Encounters Date Type Department Care Team (Late st Contact Info) Description 07/20/2025 10:15 AM EST Procedure Visit [facility] [address] [place] [address] Francisca Vargas MD [address] [place] [address] Scheduled Orders Name Type Priority Associated Diagnoses Orde r Schedule Measles, Mumps, and Rubella (MMR) Antibodies (IgG) Panel, Immune Status Lab Routine Routine physical examination Expected: 06/24/2025 (Approximate), Expires: 06/24/2026 documented as of this encounter Visit Diagnoses Diagnosis Routine physical examination Routine general medical examination at a health care facility documented in this encounter Additional Health Concerns Assessment Noted Time PHQ-9 Depression Total Score: 17 024 2:58 PM EDT documented as of this encounter Care Teams Package Line Operator Relationship Specialty Start Date End Date Francisca Vargas MD [address] [place] [address] PCP - General Family Medicine 11/08/22 documented as of this encounter
[2025-06-25 06:33] LABS: Rubeola IgG (Measles) >300.00 AU/mL
== END 2025-06-24 13:10 | disposition home or self-care (01) ==
LOC: HO.HHCL 13:09
PROVIDERS: PCP General Practice; Visit Provider General Practice
DX: Z00.00 Encounter for general adult medical examination without abnormal findings (principal); Z01.84 Encounter for antibody response examination; Z11.59 Encounter for screening for other viral diseases
CPT/HCPCS: 36415; 86735; 86762; 86765